=== PATIENT | female | born 1960 | race Caucasian/White ===

== ENCOUNTER → 2018-05-22 07:54 | Outpatient (CLI) | payer OTHER, SELFPAY ==
[2018-05-22 09:41] LABS: Cholesterol 231 mg/dL (200); High Density Lipoprotein 85 mg/dL; Triglycerides 73 mg/dL; Very Low Density Lipoprotein 15 mg/dL (5-40)
== END ==
PROVIDERS: Family Provider Nurse Practitioner; PCP Nurse Practitioner; Referring Provider Nurse Practitioner; Visit Provider Nurse Practitioner
DX: E78.00 Pure hypercholesterolemia, unspecified (principal)
CPT/HCPCS: 36415; 80061

== ENCOUNTER → 2018-09-06 07:35 | Outpatient (CLI) | payer OTHER, SELFPAY ==
[2018-09-06 08:43] LABS: Cholesterol 217 mg/dL (200); High Density Lipoprotein 94 mg/dL; Triglycerides 61 mg/dL; Very Low Density Lipoprotein 12 mg/dL (5-40)
== END ==
PROVIDERS: Family Provider Nurse Practitioner; PCP Nurse Practitioner; Referring Provider Nurse Practitioner; Visit Provider Nurse Practitioner
DX: E78.00 Pure hypercholesterolemia, unspecified (principal)
CPT/HCPCS: 36415; 80061

== ENCOUNTER → 2019-02-05 | Outpatient (CLI) | payer OTHER, SELFPAY ==
--- NOTE | 2019-02-05 15:40 | RAD_ITS ---
STUDY: X-RAY - LUMBAR SPINE REASON FOR EXAM: Female, 58 years old. Back pain TECHNIQUE: 5 view(s) of the lumbar spine were obtained. COMPARISON: None FINDINGS: There is no evidence of fracture or dislocation in the lumbar spine. The vertebral body heights are well-maintained. There are mild degenerative changes in the lower lumbar spine with disc space narrowing. There is grade 1 anterolisthesis of L4 with respect to L5. RAD/L/S Spine Min 4 Views IMPRESSION: No fracture or dislocation in the lumbar spine. Mild degenerative changes in the lower lumbar spine with disc space narrowing. Grade 1 anterolisthesis of L4 with respect to L5. Electronically Signed: Jorden Ashley, at 21:21 EDT Tel , Service support ,
== END | disposition home or self-care (01) ==
LOC: RAD 15:37
PROVIDERS: Family Provider Nurse Practitioner; PCP Nurse Practitioner; Referring Provider Nurse Practitioner; Visit Provider Nurse Practitioner
DX: M54.5 Low back pain (principal)
CPT/HCPCS: 72110

== ENCOUNTER → 2019-03-24 | Outpatient (CLI) | payer OTHER, SELFPAY ==
[2019-03-24 09:19] LABS: ALB/GLOB Ratio 1.2 RATIO (0.9-2.4); AST(SGOT) 20 U/L (15-37); Alanine Aminotransfer ALT/SGPT 25 U/L (13-56); Albumin, Serum 4.3 g/dL (3.2-5.0); Alkaline Phosphatase 60 U/L (45-117); Anion Gap 2 (5-15); BUN 13 mg/dL (7-18); Calcium,Total 10.4 mg/dL (8.5-10.1); Chloride 103 mmol/L (98-107); Cholesterol 225 mg/dL (200); Creatinine, Serum 0.76 mg/dL (0.55-1.02); EST Glomerular Filtration Rate 82 mL/min (>60); Est Glom Filt Rate - Afr Amer 99 mL/min (>60); Globulin 3.7 g/dL (2.2-4.2); Glucose 95 mg/dL (74-106); High Density Lipoprotein 95 mg/dL; Sodium Level 137 mmol/L (136-145); Triglycerides 60 mg/dL; Very Low Density Lipoprotein 12 mg/dL (5-40)
[2019-03-24 09:50] LABS: Vitamin D,25 Hydroxy 77.6 ng/mL (29.95-100.01)
== END | disposition home or self-care (01) ==
LOC: LAB 07:50
PROVIDERS: Family Provider Nurse Practitioner; PCP Nurse Practitioner; Referring Provider Nurse Practitioner; Visit Provider Nurse Practitioner
DX: E83.52 Hypercalcemia (principal); E55.9 Vitamin D deficiency, unspecified; E78.00 Pure hypercholesterolemia, unspecified
CPT/HCPCS: 36415; 80053; 80061; 82306

== ENCOUNTER → 2019-05-26 08:22 | Outpatient (CLI) | payer OTHER, SELFPAY ==
[2019-05-26 10:30] LABS: ALB/GLOB Ratio 1.1 RATIO (0.9-2.4); AST(SGOT) 17 U/L (15-37); Alanine Aminotransfer ALT/SGPT 20 U/L (13-56); Albumin, Serum 3.9 g/dL (3.2-5.0); Alkaline Phosphatase 61 U/L (45-117); Anion Gap 6 (5-15); BUN 18 mg/dL (7-18); BUN/Creat Ratio 25.6 RATIO (10-20); Calcium,Total 9.3 mg/dL (8.5-10.1); Chloride 106 mmol/L (98-107); EST Glomerular Filtration Rate 90 mL/min (>60); Est Glom Filt Rate - Afr Amer 109 mL/min (>60); Globulin 3.5 g/dL (2.2-4.2); Glucose 102 mg/dL (74-106); Potassium 4.1 mmol/L (3.5-5.1); Protein, Total 7.4 g/dL (6.4-8.2); Sodium Level 139 mmol/L (136-145)
== END ==
PROVIDERS: Family Provider Nurse Practitioner; PCP Nurse Practitioner; Referring Provider Nurse Practitioner; Visit Provider Nurse Practitioner
DX: E83.52 Hypercalcemia (principal)
CPT/HCPCS: 36415; 80053

== ENCOUNTER → 2019-07-22 11:44 | Outpatient (CLI) | payer OTHER, SELFPAY ==
[2019-06-12 15:59] VITALS: BMI 20.5
--- NOTE | 2019-07-22 11:48 | MRI_ITS ---
STUDY: BILATERAL BREAST MR WITHOUT AND WITH CONTRAST REASON FOR EXAM: Female, 59 years old. Verification of no breast cancer preoperatively for revision of reconstruction from 29 years ago. Bilateral saline implants, right greater than left. History of bilateral breast pain from contractures. TECHNIQUE: Multi-sequence multi-echo imaging of both breasts was performed with a dedicated breast coil. T1-weighted and T2-weighted images were performed before the administration of contrast. T1-weighted images were also performed after the administration of Dotarem 10cc iv without complications. COMPARISON: No comparison studies. FINDINGS: Bilateral mastectomy with saline implant placements bilaterally. Prominent follicles in both implants. No evidence of intracapsular or extracapsular rupture. No enhancing lesions present. There are no enlarged or abnormal lymph nodes. There is no abnormality in the visualized regions of the chest or liver. MRI/Breast Bilateral W/O and W IMPRESSION: Bilateral mastectomy with saline implant placement without other abnormality. CATEGORY: BIRADS Category 2: Benign. A letter regarding these results will be sent to the patient by the facility within 30 days. Electronically Signed: Payam Lowry MD at 16:57 EST , Service support ,
[2019-07-22 13:26] LABS: ALB/GLOB Ratio 1.2 RATIO (0.9-2.4); AST(SGOT) 16 U/L (15-37); Alanine Aminotransfer ALT/SGPT 19 U/L (13-56); Alkaline Phosphatase 58 U/L (45-117); Anion Gap 2 (5-15); BUN 12 mg/dL (7-18); BUN/Creat Ratio 15.8 RATIO (10-20); Calcium,Total 9.2 mg/dL (8.5-10.1); Chloride 105 mmol/L (98-107); Cholesterol 197 mg/dL (200); Creatinine, Serum 0.76 mg/dL (0.55-1.02); EST Glomerular Filtration Rate 83 mL/min (>60); Est Glom Filt Rate - Afr Amer 100 mL/min (>60); Globulin 3.4 g/dL (2.2-4.2); Glucose 89 mg/dL (74-106); High Density Lipoprotein 69 mg/dL; Potassium 4.1 mmol/L (3.5-5.1); Protein, Total 7.4 g/dL (6.4-8.2); Sodium Level 138 mmol/L (136-145); Triglycerides 83 mg/dL; Very Low Density Lipoprotein 17 mg/dL (5-40)
[2019-07-22 13:36] LABS: Vitamin D,25 Hydroxy 52.1 ng/mL (29.95-100.01)
== END ==
PROVIDERS: Family Provider Nurse Practitioner; PCP Nurse Practitioner; Referring Provider Surgery; Visit Provider Surgery
DX: E83.52 Hypercalcemia (principal); E55.9 Vitamin D deficiency, unspecified; E78.00 Pure hypercholesterolemia, unspecified; C50.911 Malignant neoplasm of unspecified site of right female breast; N65.0 Deformity of reconstructed breast; T85.44XA Capsular contracture of breast implant, initial encounter; T85.848A Pain due to other internal prosthetic devices, implants and grafts, initial encounter; Z80.3 Family history of malignant neoplasm of breast; Z90.12 Acquired absence of left breast and nipple; Z98.82 Breast implant status
CPT/HCPCS: 36415; 77049; 80053; 80061; 82306; A9575; A4216; C8908

== ENCOUNTER 2019-08-11 13:36 | Observation (INO) | payer OTHER, SELFPAY ==
[2019-06-12 15:59] VITALS: BMI 20.5
--- NOTE | 2019-08-10 22:47 | PCM.HP.BLA ---
History and Physical Date of Admission: 08/11/19 HISTORY OF PRESENT ILLNESS 59 year old woman presents with bilateral breast pain, worse on the left. On the left breast, the pain is superior and medial with firmness. On the right breast, the pain is not as severe as it is mostly superior and lateral. She also has noted the right breast is a little smaller than on the left. She denies trauma to her breasts. She denies nipple drainage on the left. The right nipple is reconstructed. She developed right breast cancer in 1989 that resulted in a mastectomy. She also underwent a prophylactic mastectomy on the left. She states no chemotherapy was needed and no radiation therapy was needed. She had breast reconstruction with the placement of saline implants which were textured. The implant was placed under the muscle on the right as she has noticed intermittent pectoralis muscle animation deformity with associated pain. For the left breast, the implant was placed on top of the muscle. She presents at this time for surgical options for treatment regarding revising her breast reconstruction secondary to her painful symptomatology. She had an MRI don on 07/22/19. It showed bilateral mastectomy with saline implant placements bilaterally. Prominent follicles in both implants. No evidence of intracapsular or extracapsular rupture. No enhancing lesions present. There are no enlarged or abnormal lymph nodes. There is no abnormality in the visualized regions of the chest or liver. PAST MEDICAL HISTORY Anemia Breast cancer in female Hearing problem High calcium levels High cholesterol Osteopenia High blood pressure PAST SURGICAL HISTORY breast reconstruction with saline implants mastectomy ALLERGIES ibuprofen MEDICATIONS Metoprolol Tartrate [Lopressor (Beta Alex)] cholecalciferol (vitamin D3) multivitamin with iron tablet omega 5-vbg-pjn-fish oil FAMILY HISTORY Aunt - Breast cancer, Depression with anxiety Father - Cancer, Hypertension, High blood cholesterol Mother - Heart disease SOCIAL HISTORY Smoking Status: Never smoker alcohol intake: current substance use type: does not use REVIEW OF SYSTEMS General - Denies fever, fatigue, and weight loss. Eyes - Denies cataracts and glaucoma. ENT - Denies nasal congestion and sore throat. Endocrine - Denies excessive thirst and urination. Had right breast cancer with bilateral mastectomy and reconstruction with saline implants. Skin - Denies suspicious lesions and skin cancer. Musculoskeletal - Denies joint pain, joint stiffness, weakness of muscles and joints, and arthritis. Has back pain. Neuro - Denies headaches. Cardiovascular - Denies chest pain, fatigue, and shortness of breath with exertion. Psych - Denies anxiety and depression. Respiratory - Denies chronic cough and shortness of breath. Gastrointestinal - Denies nausea, vomiting, diarrhea, and constipation. Hematologic - Denies abnormal bruising and bleeding. Genitourinary - Denies hematuria and urinary frequency. PHYSICAL EXAMINATION General - Alert and Oriented. HEENT - PERRL. EOMI. Throat is clear. Neck - Supple and nontender. No cervical adenopathy. Breast - No palpable masses. The right breast is slightly smaller than the left breast. The nipple is located at the inframammary fold. There is firmness and tenderness bilaterally on the superior aspect of the breasts worse on the left. There is firmness and tenderness on the medial aspect of the left breast with some lateral migration. On the right breast, there is some mild firmness and tenderness on the lateral aspect of the right breast. No axillary adenopathy. When the patient raises her right arm, there is some dimpling of the skin secondary to the muscle animation deformity. Lungs - Clear to auscultation. Heart - Regular rate and rhythm. Abdomen - Soft and nondistended. Mild redundant skin and subcutaneous tissue between the umbilicus and the pubic area. No abdominal wall scars noted. Extremities - FROM. No axillary adenopathy. Radial pulses are palpable. Neuro - CN II-XII grossly intact. Psych - Normal mood and affect. ASSESSMENT 1. Right breast cancer. 2. History of prophylactic subcutaneous mastectomy left breast. 3. Acquired absence bilateral breasts. 4. History of bilateral saline breast implants. 5. Painful capsular contracture bilateral breasts, worse on the left. 6. Disproportion reconstructed breasts with asymmetry with the right breast reconstruction a little smaller. 7. Deformity reconstructed breasts. 8. Pectoralis muscle animation deformity right breast reconstruction. 9. Family history of breast cancer. PLAN Discussed various breast reconstruction options for the patient. The patient has had her saline breast implants for 28 years. Over the years, she has developed bilateral capsular contracture worse on the left. The right breast has become a little smaller over the years. The records from [facility] were obtained. The saline implants were textured. On the right it was placed in the submuscular position. On the left it was placed in the prepectoral position. She is not interested in autogenous reconstruction at this time. The saline breast implants can be removed with associated capsulectomy. After the capsulectomy, would enlarge the pocket medially to help define the cleavage better. She had some concerns that the breasts were too far apart. Would replace the saline implants with cohesive gel implants. Also would place acellular dermal matrix graft to help act as a sling inferiorly for shaping of the breast. One option would be to use the same submuscular pocket and place the acellular dermal matrix graft inferiorly for coverage of the implant. Since the left breast implant is above the muscle, then can create a submuscular pocket for the replacement cohesive gel implant along with acellular dermal matrix graft inferiorly. However, with the pectoralis muscle animation deformity on the right, it was discussed with the patient that the cohesive gel implants can be placed on top of the muscle in a prepectoral position. This would help to minimize the pectoralis muscle animation deformity. Any tissue that is removed will be sent to Pathology for analysis to rule out carcinoma. Any abnormal fluid that is seen will be cultured. A positive culture will necessitate antibiotic therapy. Preoperatively an MRI was done on 07/22/19. It showed bilateral mastectomy with saline implant placements bilaterally. Prominent follicles in both implants. No evidence of intracapsular or extracapsular rupture. No enhancing lesions present. There are no enlarged or abnormal lymph nodes. There is no abnormality in the visualized regions of the chest or liver. 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 The treatment for this is generally removal of the textured implant with capsulectomy. After placement of the cohesive gel implants, if there is some loose skin and tissue inferiorly, will proceed with a mastopexy to help with symmetry and to help complete the breast reconstruction. Patient was informed of the risks and complications of the procedure including alternatives to surgery. These were discussed with the patient personally. Patient voices understanding and wishes to proceed. Some of the risks and complications were included in a form from the [place] [employer]. Surgery will be done under general anesthesia with a surgical observation overnight stay in the hospital. She will have drains in for several days (10-14) and be maintained on antibiotics until the drains are removed.
[2019-08-11] VITALS (13 sets, daily range): BP systolic 84–125; BP diastolic 47–76; PULSE 54–76; RESP 15–18; TEMP 36.5–37.7; O2SAT 94–100; BMI 21.6
[2019-08-11 06:15] LABS: Bedside Glucose 99 mg/dL (70-110)
[2019-08-11 06:19] LABS: Hematocrit 37.8 % (37-47); Hemoglobin 12.5 g/dL (12.0-15.0); Mean Corp Hgb Conc 33.1 g/dL (32-36); Mean Corpuscular Volume 93.8 fL (81-99); Mean Platelet Vol. 10.8 fl (6.2-12.0); Platelet Count 171 K/mm3 (150-450); RBC Distribution Width CV 11.3 % (11.6-14.6); RBC Distribution Width SD 38.6 fl (35.1-43.9); Red Blood Count 4.03 M/mm3 (4.2-5.4); White Blood Count 4.9 K/mm3 (4.4-11.0)
[2019-08-11 06:26] LABS: Partial Thromboplast Time 28.1 Seconds (24.1-36.2); Prothrombin Time (Protime)PT. 12.6 SECONDS (11.7-14.9)
[2019-08-11] MEDS: Magnesium Sulfate 4gm/100mL 4 GM/100 ML IV.SOLN. IV (06:33)
[2019-08-11] MEDS: Lactated Ringers 1,000 ML 40 ML IV (06:34)
[2019-08-11] MEDS: Gabapentin 600 MG Tablet PO (06:35)
[2019-08-11] MEDS: Acetaminophen 500 MG Tablet 1000 MG PO ×3 (06:35→22:56)
[2019-08-11] MEDS: Scopolamine 1mg/72hr Patch 1 PATCH TRANSDERM. (06:35)
[2019-08-11] MEDS: Cefazolin 2 GM in 0.9% Normal Saline 100 ML IV (07:30)
--- NOTE | 2019-08-11 07:30 | BRBX_PTH ---
PATIENT: BOLIVAR VILLAVICENCIO LOC: MS3 U#:[id number] AGE/SX: 59/F ROOM: CO324 RE08/11/[address]: Dr. Brodie Huitron MD : 1960 BED: 1 DIS: 08/13/2019 SPEC #: [id number] RECD: 08/11/19 13:53 STATUS: CALLIE REJaneth #: [id number] NIK: 08/11/19 07:[address]: Brodie Huitron DEPT: SURGICAL PATHOLOGY RECD BY: Ho Melgar ENTERED: 08/11/19 14:27 SP TYPE: BREAST BX OT DR: Bolivar Sutherland CUT OFF SAW TENDER METAL-Aminah Tissues: A - Right breast, NOS B - Left breast, NOS Procedures: Surgery Specimen Level II Surgery Specimen Level IV HEADER OPERATION: Reconstruction with removal of sudha implants PRE-OP DIAGNOSIS: Right breast cancer, history of prophylactic subcutaneous mastectomy left breast, history of bilateral saline breast implants TISSUE SUBMITTED: A. Right breast implant, tissue and capsule, B. Left breast implant, tissue and capsule MICROSCOPIC DIAGNOSIS A. Right breast implant, removal: Unremarkable implant (gross diagnosis only). Right breast implant capsule, excision: Collagenized capsular tissue with mild reactive change and focal microcalcifications. No evidence of inflammation. B. Left breast implant, removal: Unremarkable implant (gross diagnosis only). Left breast implant capsule, excision: Collagenized capsular tissue with mild reactive change and focal microcalcifications. No evidence of inflammation. AM:hector 08/12/19 MICROSCOPIC DESCRIPTION Slides are reviewed. GROSS DESCRIPTION A - Received in fixative is one container labeled with the patient's name and designated right breast implant and tissue capsule. The specimen consists of an explanted breast prosthesis measuring 2.5 cm in diameter and approximately 4 cm in thickness. The implant bears the following inscription BENI. No breaks or tears are identified. Present free in the container are also multiple irregular fragments of pink-garcía soft tissue measuring in aggregate 9 x 9 x 2 cm. Also present in the specimen container is an ellipse of light garcía skin measuring 7 x 0.5 x 0.5 cm. No mass lesions are identified. Oil Developer sections are submitted in three cassettes as follows: 1 - skin, 2 & 3 - signs and displays sales representative sections of breast capsule. B - Received in fixative is one container labeled with the patient's name and designated left breast implant and tissue capsule. The specimen consists of an explanted breast prosthesis measuring 2.5 cm in diameter and approximately 4 cm in thickness. The implant bears the following inscription MCGSCOTT. No breaks or tears are identified. Present free in the container are also multiple irregular fragments of pink-garcía soft tissue measuring in aggregate 14 x 10 x 4 cm. Also present in the specimen container is an ellipse of light garcía skin measuring 5.5 x 1.5 x 0.5 cm. No mass lesions are identified. Oil Developer sections are submitted in three cassettes as follows: 1 - skin, 2 & 3 - signs and displays sales representative sections of breast capsule. / AM:hector 08/11/19 TC:5 CPT: 83912 x2, 14800 x2
[2019-08-11] MEDS: Lactated Ringers 1,000 ML 60 ML IV ×3 (08:31→16:02)
--- NOTE | 2019-08-11 13:15 | PCM.OPRPT ---
Report of Operation Date of Procedure: 08/11/19 Pre-Operative Diagnosis: 1. Right breast cancer. 2. History of prophylactic subcutaneous mastectomy left breast. 3. Acquired absence bilateral breasts. 4. History of bilateral saline breast implants. 5. Painful capsular contracture bilateral breasts, worse on the left. 6. Disproportion reconstructed breasts with asymmetry with the right breast reconstruction a little smaller. 7. Deformity reconstructed breasts. 8. Pectoralis muscle animation deformity right breast reconstruction. 9. Family history of breast cancer. Post-Operative Diagnosis: Same. Surgery/Procedure Performed:: 1. Revision right breast reconstruction with removal of textured saline implant and capsulectomy. 2. Delayed right breast reconstruction with placement of prepectoral cohesive gel implant (480 ml) and placement of Alloderm Select Restore acellular dermal matrix graft (327 cm2). 3. Revision left breast reconstruction with removal of textured saline implant and capsulectomy. 4. Delayed left breast reconstruction with placement of prepectoral cohesive gel implant (480 ml) and placement of Alloderm Select Restore acellular dermal matrix graft (327 cm2). Description of Surgical Findings:: 59 year old woman presents with bilateral breast pain, worse on the left. On the left breast, the pain is superior and medial with firmness. On the right breast, the pain is not as severe as it is mostly superior and lateral. She also has noted the right breast is a little smaller than on the left. She denies trauma to her breasts. She denies nipple drainage on the left. The right nipple is reconstructed. She developed right breast cancer in 1989 that resulted in a mastectomy. She also underwent a prophylactic mastectomy on the left. She states no chemotherapy was needed and no radiation therapy was needed. She had breast reconstruction with the placement of saline implants which were textured. The implant was placed under the muscle on the right as she has noticed intermittent pectoralis muscle animation deformity with associated pain. For the left breast, the implant was placed on top of the muscle. She presents at this time for surgical options for treatment regarding revising her breast reconstruction secondary to her painful symptomatology. She had an MRI don on 07/22/19. It showed bilateral mastectomy with saline implant placements bilaterally. Prominent follicles in both implants. No evidence of intracapsular or extracapsular rupture. No enhancing lesions present. There are no enlarged or abnormal lymph nodes. There is no abnormality in the visualized regions of the chest or liver. Patient was informed of the risks and complications of the procedure including alternatives to surgery. These were discussed with the patient personally. Patient voices understanding and wishes to proceed. Some of the risks and complications were included in a form from the [employer] [place] [employer]. IV Fluids - 2300 ml. Urine Output - 1475 ml. I used Homeland MemoryGel Smooth Round Ultra High Profile Breast Implant, (480 ml on the right). Reference Number - [id number]. Lot Number - [id number]. Serial Number - [id number]. Expiration - April 19, 2024. I used Alloderm Select Restore Regenerative Tissue Matrix Graft, Contour Large Perforated X-Thick, (327 cm2 on the right). Reference Number - [id number]. Lot Number - [id number]. Expiration - March,. I used Homeland MemoryGel Smooth Round Ultra High Profile Breast Implant, (480 ml on the left). Reference Number - [id number]. Lot Number - [id number]. Serial Number - [id number]. Expiration - Jan 01 2024. I used Alloderm Select Restore Regenerative Tissue Matrix Graft, Contour Large Perforated X-Thick, (327 cm2 on the left). Reference Number - [id number]. Lot Number - [id number]. Expiration - August,. I used Chalino absorbable hemostat, (I used 4 vials, 2 in the right breast and 2 in the left breast). Reference Number - [id number]. Lot Number - [id number]. Expiration - April 09, 2024, (right breast). Reference Number - [id number]. Lot Number - [id number]. Expiration - June 09, 2023, (3 vials, one in the right breast and 2 in the left breast). replenishment specialist: Brando Acosta. Type of Anesthesia:: General Specimen's removed: 1. Left breast tissue and capsule and saline textured implant to Pathology. 2. Left breast tissue and capsule to Nicrobiology. 3. Right breast tissue and capsule and saline textured implant to Pathology. 4. Right breast tissue and capsule to Microbiology. Drains: Gaob x4 (2 in each breast). Estimated Blood Loss (mL): 150 ml. Fluids Replaced: 3775 ml (IV Fluids 2300 ml, Urine Output 1475 ml). Description of Procedure: While the patient was in the preop area, markings were made from the sternal midline to the umbilicus. The inframammary folds were marked bilaterally. She was then taken to the OR in supine position and placed under general anethesia. SCD's were placed for DVT prophylaxis. Perioperative antibiotics were given intravenously. Her breasts were prepped and draped in the usual fashion. Ioban draping was also used. A sims catheter was placed. Using xylocaine with epinephrine, the mastectomy scar on the right breast and the mastectomy scar on the left breast in the inframammary fold were infiltrated. After waiting 5 minutes for the anesthetic to take effect, I first worked on the right breast and then the left breast. A horizontal incision was made through the previous right mastectomy scar down through the subcutaneous tissue until the capsule was seen. A capsulotomy was performed and the textured saline implant was removed. No abnormal fluid collection was seen in the breast pocket. However the saline implant was textured and had calcifications around the implant. The capsule was thickened with scattered calcifications around the capsular tissue. I then proceeded with capsulectomy. I then freed up the pectoralis muscle off the breast skin flap and placed the muscle on the chest wall. The plan is to place the cohesive gel implants in a prepectoral position because of her history of pectoralis muscle animation deformity. I then placed a 400 ml ultra high profile sizer into the breast pocket and closed the wound temporarily with 3-0 Vicryl suture. A horizontal incision was then made through the previous left mastectomy scar in the inframammary crease down through the subcutaneous tissue until the capsule was seen. A capsulotomy was performed and the textured saline implant was removed. No abnormal fluid collection was seen in the breast pocket. However the saline implant was textured and had calcifications around the implant. The capsule was thickened with scattered calcifications around the capsular tissue. The capsule was much thicker on the left breast as compared to the right breast. I then proceeded with capsulectomy. The implant had been placed on top of the muscle so no muscle dissection as the implants will be placed in a prepectoral position. I then placed a 400 ml ultra high profile sizer into the breast pocket and closed the wound temporarily with 3-0 Vicryl suture. The patient was placed in the sitting position. Good shape and contour was noted in the breasts, but the sizers did not fill out the breast pocket. I then repeated the process with a 430 ml sizer and a 455 ml sizer and finally settled on a 480 ml ultra high profile sizer. Patient was then placed back in the supine position and sizers were removed. I placed two size 15 Gabo drains through separate stab incisions inferiorly and laterally and secured to the skin with 3-0 Nylon suture. I irrigated both breast wounds with Irrisept 0.05% Chlorhexidine solution followed by saline irrigation. I sprayed Chalino absorbable hemostat into both breast pockets to minimize seroma formation. I used two vials in each breast. Prior to handling the cohesive gel implants, our gloves were changed. I then took both cohesive gel implants (Homeland ultra high profile, 480 ml) and placed them in sterile Betadine on the back table and wrapped the Alloderm Select Restore acellular dermal matrix graft, contour large perforated, X-thick, with 3-0 Vicryl suture. Care was taken to place a malleable over the implant during the suturing of the graft to protect the implant from injury. Prior to placement of the implants into the breast pockets, the wounds were irrigated with saline and hemostasis was obtained with electrocautery. I then placed the cohesive gel implants wrapped in the acellular dermal matrix graft into the breast pockets in a prepectoral position. I secured the lateral edge and inferior edge of the graft to the chest wall with 3-0 Vicryl suture. Because there was some redundancy of the graft in this area, it was easy to protect the implant away from the placement of these sutures. The breast tissue and capsule of both breasts were sent to Pathology for analysis to rule out carcinoma and to Microbiology for culture. Both textured saline implants were also sent to Pathology as well. The breast wounds were then closed with 3-0 Vicryl figure of eight interrupted sutures for the deeper subcutaneous tissue. A malleable was used to protect the implant during this portion of the wound closure The deep dermis and subcutaneous tissue were approximated with 3-0 Monocryl interrupted sutures. The skin was approximated with 3-0 V lock unidirectional barbed running subcuticular sutures. This was followed by Histoacryl skin tissue adhesive. A Kerlix gauze dressing was applied followed by an ABD pad and a surgical bra. Patient tolerated the procedure well and was sent to PACU in satisfactory condition. She will be sent upstairs for postop care. The drains will be removed in 10-14 days. She will be discharged on antibiotics and pain medication and Valium for spasm. Grafts/Implants Used: Homeland MemoryGel Implants x2, Alloderm Select acellular graft x2. - Complications None. - Admit VTE Documentation VTE Present on Admission: No VTE Mechan Device Prophylaxis: SCD's VTE Pharm Prophylaxis ordered?: Yes Code Visit Surgery Charges CPT - 11528 ICD-10 - C50.911, T85.44xA, T85.848A, Z90.13, Z98.82, N65.1, N65.0, Z80.3 38435-49 C50.911, T85.44xA, T85.848A, Z90.13, Z98.82, N65.1, N65.0, Z80.3 73054 C50.911, Z90.13, Z98.82, N65.1, T85.44xA, T85.848A, N65.0, Z80.3 38229-26 C50.911, Z90.13, Z98.82, N65.1, T85.44xA, T85.848A, N65.0, Z80.3 93946 C50.911, Z90.13, Z98.82, N65.1, N65.0, T85.44xA, T85.848A, Z80.3 44797-05 C50.911, Z90.13, Z98.82, N65.1, N65.0, T85.44xA, T85.848A, Z80.3 76264-50 C50.911, Z90.13, Z98.82, N65.1, N65.0, T85.44xA, T85.848A, Z80.3
[2019-08-11] MEDS: Scopolamine 1mg/72hr Patch 1 PATCH TD (13:54)
[2019-08-11] MEDS: Cefazolin 1 GM/50 ML BAG IV ×2 (17:18→22:33)
[2019-08-11] MEDS: oxyCODONE 5 MG Tablet PO ×2 (18:51→22:53)
[2019-08-11] MEDS: Gabapentin 100 MG Capsule 200 MG PO (18:51)
[2019-08-11] MEDS: Docusate Sodium 100 MG Capsule PO (22:32)
[2019-08-12 03:04] VITALS: BP 92/53; PULSE 57; RESP 16; TEMP 36.6; O2SAT 99
--- NOTE | 2019-08-12 05:30 | NURSING ---
Cruz d/c per nurse driven protocol
[2019-08-12 05:32] LABS: Hematocrit 33.2 % (37-47); Hemoglobin 10.7 g/dL (12.0-15.0); Mean Corp Hgb Conc 32.2 g/dL (32-36); Mean Corpuscular Volume 96.2 fL (81-99); Mean Platelet Vol. 11.1 fl (6.2-12.0); Platelet Count 125 K/mm3 (150-450); RBC Distribution Width CV 11.6 % (11.6-14.6); RBC Distribution Width SD 40.7 fl (35.1-43.9); Red Blood Count 3.45 M/mm3 (4.2-5.4)
[2019-08-12] MEDS: Acetaminophen 500 MG Tablet 1000 MG PO ×3 (05:34→23:33)
[2019-08-12] MEDS: oxyCODONE 5 MG Tablet PO ×4 (05:34→22:05)
[2019-08-12 06:01] LABS: Anion Gap 3 (5-15); BUN 11 mg/dL (7-18); BUN/Creat Ratio 16.4 RATIO (10-20); Calcium,Total 8.6 mg/dL (8.5-10.1); Chloride 108 mmol/L (98-107); Creatinine, Serum 0.67 mg/dL (0.55-1.02); EST Glomerular Filtration Rate 96 mL/min (>60); Est Glom Filt Rate - Afr Amer 116 mL/min (>60); Estimated Creatinine Clearance 78.07 ml/min; Glucose 102 mg/dL (74-106); Potassium 5.3 mmol/L (3.5-5.1); Prealbumin 24.9 mg/dL (20.0-40.0); Sodium Level 141 mmol/L (136-145)
[2019-08-12] MEDS: Cefazolin 1 GM/50 ML BAG IV ×3 (06:31→23:34)
[2019-08-12 07:54] VITALS: O2SAT 98
[2019-08-12] MEDS: Ensure Surgery 237 ML LIQUID PO ×3 (08:23→17:55)
[2019-08-12] MEDS: Docusate Sodium 100 MG Capsule PO ×2 (08:23→22:05)
[2019-08-12] MEDS: Gabapentin 100 MG Capsule 200 MG PO ×3 (08:23→17:55)
[2019-08-12] MEDS: Ferrous Sulfate 325 MG Tablet PO (08:24)
[2019-08-12] MEDS: Enoxaparin 40 MG/0.4 ML Syringe SC (08:25)
[2019-08-12 08:27] VITALS: PULSE 61
[2019-08-12] MEDS: Metoprolol Tartrate 50 MG Tablet PO (08:27)
[2019-08-12 09:16] VITALS: BP 99/62; PULSE 70; RESP 18; TEMP 36.6; O2SAT 93
--- NOTE | 2019-08-12 11:38 | PN.SURG_ITS ---
Subjective: Postop #1 Patient has some incisional pain. Is a little unsteady on her feet with ambulation. - Physical Exam Vitals/I&O's: Vital Signs Temp Pulse Resp BP Pulse Ox 97.9 F 70 18 99/62 93 08/12/19 09:16 08/12/19 09:16 08/12/19 09:16 08/12/19 09:16 08/12/19 09:16 Oxygen Flow Rate (L/min) 6 Oxygen Delivery Method Room Air Weight: 125 lb 14.143 oz Body Mass Index (BMI) 21.6 Intake and Output for Last 24 Hours 08/10/19 08/11/19 08/12/19 23:59 23:59 23:59 Intake Total 3310 / 4310 2455 / 2455 Output Total 1761 / 2611 2265 / 2265 Balance 1549 / 1699 190 / 190 Drainage 146 ml yesterday, 215 ml today General: Alert, Oriented x3 HEENT: PERRLA, EOMI Oral: Moist Mucosa Neck: Supple Abdomen: Soft, Non-Distended Skin: Incision - breast incisions are dry and intact. Breasts are soft and symmetrical. No clinical evidence of hematoma. Mild bruising on right lateral breast where the muscle was dissected off the breast skin flap. Will observe. Neurological: Cranial nerves II-XII grossly intact Psych/Mental Status: Normal Affect, Appropriate Microbiology Past 72 Hours 08/11/19 09:30 Tissue - Breast Gram Stain - Final 08/11/19 09:30 Tissue - Breast Wound Culture - Preliminary No growth-Final to follow 08/11/19 09:30 Tissue - Breast Gram Stain - Final 08/11/19 09:30 Tissue - Breast Wound Culture - Preliminary No growth-Final to follow Laboratory Results 08/12/19 05:15: Sodium 141, Potassium 5.3 H, Chloride 108 H, Carbon Dioxide 30.0, Anion Gap 3 L, BUN 11, Creatinine 0.67, Estim Creat Clear Calc 78.07, Est GFR (MDRD) Af Amer 116, Est GFR (MDRD) Non-Af 96, BUN/Creatinine Ratio 16.4, Glucose 102, Calcium 8.6, Prealbumin 24.9 08/12/19 05:15: WBC 8.0, RBC 3.45 L, Hgb 10.7 L, Hct 33.2 L, MCV 96.2, MCH 31.0, MCHC 32.2, RDW Std Deviation 40.7, RDW Coeff of Hans 11.6, Plt Count 125 L, MPV 11.1 Current Medications Acetaminophen (Tylenol) 1,000 mg PO Q6 [facility] Last Admin: 08/12/19 11:17 Dose: 1,000 mg Documented by: Diazepam (Valium) 5 mg PO 4X/DAY PRN PRN PRN Reason: SPASMS Docusate Sodium (Colace) 100 mg PO BID [facility] Last Admin: 08/12/19 08:23 Dose: 100 mg Documented by: Enoxaparin Sodium (Lovenox) 40 mg SC DAILY [facility] Last Admin: 08/12/19 08:25 Dose: 40 mg Documented by: Enteral Nutritional Formula (Ensure Surgery) 237 ml PO TIDCM [facility] Last Admin: 08/12/19 11:17 Dose: 237 ml Documented by: [facility] Admin: 08/12/19 08:24 Dose: 325 mg Documented by: Gabapentin (Neurontin) 200 mg PO TIDCM [facility] Last Admin: 08/12/19 11:17 Dose: 200 mg Documented by: Hydromorphone HCl (Dilaudid Inj) 0.5 - 1 mg IV Q3H PRN PRN PRN Reason: Pain Score 6-10/10 Cefazolin Sodium () 1 gm in 50 mls @ 100 mls/hr IV Q8H [facility] Last Infusion: 08/12/19 07:01 Dose: Infused Documented by: Insulin Human Lispro (Humalog Kwikpen (Bkc)) 1 - 6 unit SC Q4H PRN PRN; Protocol PRN Reason: BG>/= 180, SEE PROTOCOL Magnesium Oxide (Mag-Ox 400) 400 mg PO BID PRN PRN PRN Reason: Constipation Metoprolol Tartrate (Lopressor (Beta Alex)) 50 mg PO DAILY [facility] Last Admin: 08/12/19 08:27 Dose: 50 mg Documented by: Ondansetron HCl (Zofran Odt) 4 mg PO Q6H PRN PRN PRN Reason: NAUSEA Oxycodone HCl (Oxyir) 5 - 10 mg PO Q4H PRN PRN PRN Reason: Pain Score 4-10/10 Last Admin: 08/12/19 11:23 Dose: 5 mg Documented by: Scopolamine HBr (Transderm-Scop) 1 patch TD Q3D [facility] Stop: 08/12/19 13:55 Last Admin: 08/11/19 13:54 Dose: 1 patch Documented by: Sodium Chloride () 10 - 40 ml IV UD PRN PRN Reason: SALINE FLUSH Medical Necessity - Tobacco Use Smoking Status: Never smoker Tobacco Use: Non-smoker Assessment/Plan 1. Right breast cancer. 2. History of prophylactic subcutaneous mastectomy left breast. 3. Acquired absence bilateral breasts. 4. History of bilateral saline breast implants. 5. Painful capsular contracture bilateral breasts, worse on the left. 6. Disproportion reconstructed breasts with asymmetry with the right breast reconstruction a little smaller. 7. Deformity reconstructed breasts. 8. Pectoralis muscle animation deformity right breast reconstruction. 9. Family history of breast cancer. 10. s/p revision right breast reconstruction with removal of textured saline implant and capsulectomy and delayed right breast reconstruction with placement of prepectoral cohesive gel implant (480 ml) and placement of Alloderm Select Restore acellular dermal matrix graft (327 cm2) and revision left breast reconstruction with removal of textured saline implant and capsulectomy and delayed left breast reconstruction with placement of prepectoral cohesive gel implant (480 ml) and placement of Alloderm Select Restore acellular dermal matrix graft (327 cm2). Breast incisions are dry and intact. Breasts are soft and symmetrical. No clinical evidence of hematoma. Mild bruising on right lateral breast where the muscle was dissected off the breast skin flap. Will observe. Has incisional pain. Will wean to po analgesia for discharge. Anticipate discharge tomorrow. Is a little unsteady on her feet with ambulation. Encourage ambulation today. Prealbumin was 24.9. Encourage nutritional supplementation with protein to help the healing process. Operative cultures are negative. Continue Ancef while drains are in place. Will discharge on po antibiotics until the drains are removed in the office. Keep head elevated. No heavy lifting. Continue surgical bra.
[2019-08-12 15:13] VITALS: BP 91/52; PULSE 59; RESP 18; TEMP 36.8; O2SAT 97
[2019-08-12] MEDS: diazePAM 5 MG Tablet PO (18:01)
[2019-08-12 23:00] VITALS: BP 94/50; PULSE 54; RESP 16; TEMP 37; O2SAT 96
[2019-08-12] MEDS: 0.9% Saline Lock 10 ML Syringe IV (23:34)
[2019-08-13 05:30] VITALS: BP 105/69; PULSE 54; RESP 16; TEMP 36.6; O2SAT 98
[2019-08-13] MEDS: Acetaminophen 500 MG Tablet 1000 MG PO ×2 (05:36→12:23)
[2019-08-13] MEDS: oxyCODONE 5 MG Tablet PO ×2 (05:51→10:01)
[2019-08-13] MEDS: 0.9% Saline Lock 10 ML Syringe IV (06:55)
[2019-08-13] MEDS: Cefazolin 1 GM/50 ML BAG IV (06:55)
[2019-08-13] MEDS: Ensure Surgery 237 ML LIQUID PO ×2 (10:01→12:25)
[2019-08-13] MEDS: diazePAM 5 MG Tablet PO (10:01)
[2019-08-13] MEDS: Gabapentin 100 MG Capsule 200 MG PO ×2 (10:02→12:23)
[2019-08-13] MEDS: Ferrous Sulfate 325 MG Tablet PO (10:02)
[2019-08-13 10:03] VITALS: PULSE 80
[2019-08-13] MEDS: Metoprolol Tartrate 50 MG Tablet PO (10:03)
[2019-08-13] MEDS: Docusate Sodium 100 MG Capsule PO (10:03)
[2019-08-13] MEDS: Enoxaparin 40 MG/0.4 ML Syringe SC (10:04)
--- NOTE | 2019-08-13 11:10 | PCM.PN.SRG ---
Subjective: Postop #2 Patient is resting comfortably. - Physical Exam Vitals/I&O's: Vital Signs Temp Pulse Resp BP Pulse Ox 97.9 F 80 16 105/69 98 08/13/19 05:30 08/13/19 10:03 08/13/19 05:30 08/13/19 05:30 08/13/19 05:30 Oxygen Flow Rate (L/min) 6 Oxygen Delivery Method Room Air Weight: 125 lb 14.143 oz Body Mass Index (BMI) 21.6 Intake and Output for Last 24 Hours 08/11/19 08/12/19 08/13/19 23:59 23:59 23:59 Intake Total 3310 / 4310 3455 / 4455 1300 / 1300 Output Total 1761 / 2611 2345 / 3100 823 / 823 Balance 1549 / 1699 1110 / 1355 477 / 477 Drainage 295 ml yesterday, 173 ml today. General: Alert, Oriented x3 HEENT: PERRLA, EOMI Oral: Moist Mucosa Neck: Supple Abdomen: Soft, Non-Distended Skin: Incision - breast incisions are dry and intact. Breasts are soft and symmetrical. Minor bruising on the right breast slowly resolving. No clinical evidence of hematoma. Good breast contour noted. Neurological: Cranial nerves II-XII grossly intact Psych/Mental Status: Normal Affect, Appropriate Microbiology Past 72 Hours 08/11/19 09:30 Tissue - Breast Gram Stain - Final 08/11/19 09:30 Tissue - Breast Wound Culture - Preliminary No growth-Final to follow 08/11/19 09:30 Tissue - Breast Gram Stain - Final 08/11/19 09:30 Tissue - Breast Wound Culture - Preliminary No growth-Final to follow Current Medications Acetaminophen (Tylenol) 1,000 mg PO Q6 [facility] Last Admin: 08/13/19 05:36 Dose: 1,000 mg Documented by: Diazepam (Valium) 5 mg PO 4X/DAY PRN PRN PRN Reason: SPASMS Last Admin: 08/13/19 10:01 Dose: 5 mg Documented by: Docusate Sodium (Colace) 100 mg PO BID [facility] Last Admin: 08/13/19 10:03 Dose: 100 mg Documented by: Enoxaparin Sodium (Lovenox) 40 mg SC DAILY [facility] Last Admin: 08/13/19 10:04 Dose: 40 mg Documented by: Enteral Nutritional Formula (Ensure Surgery) 237 ml PO TIDCM [facility] Last Admin: 08/13/19 10:01 Dose: 237 ml Documented by: Ferrous Sulfate (Ferrous Sulfate) 325 mg PO DAILYCM [facility] Last Admin: 08/13/19 10:02 Dose: 325 mg Documented by: Gabapentin (Neurontin) 200 mg PO TIDCM [facility] Last Admin: 08/13/19 10:02 Dose: 200 mg Documented by: Hydromorphone HCl (Dilaudid Inj) 0.5 - 1 mg IV Q3H PRN PRN PRN Reason: Pain Score 6-10/10 Cefazolin Sodium () 1 gm in 50 mls @ 100 mls/hr IV Q8H [facility] Last Infusion: 08/13/19 07:25 Dose: Infused Documented by: Insulin Human Lispro (Humalog Kwikpen (Bkc)) 1 - 6 unit SC Q4H PRN PRN; Protocol PRN Reason: BG>/= 180, SEE PROTOCOL Magnesium Oxide (Mag-Ox 400) 400 mg PO BID PRN PRN PRN Reason: Constipation Metoprolol Tartrate (Lopressor (Beta Alex)) 50 mg PO DAILY [facility] Last Admin: 08/13/19 10:03 Dose: 50 mg Documented by: Ondansetron HCl (Zofran Odt) 4 mg PO Q6H PRN PRN PRN Reason: NAUSEA Oxycodone HCl (Oxyir) 5 - 10 mg PO Q4H PRN PRN PRN Reason: Pain Score 4-10/10 Last Admin: 08/13/19 10:01 Dose: 5 mg Documented by: Sodium Chloride () 10 - 40 ml IV UD PRN PRN Reason: SALINE FLUSH Last Admin: 08/13/19 06:55 Dose: 10 ml Documented by: Medical Necessity - Tobacco Use Smoking Status: Never smoker Tobacco Use: Non-smoker Assessment/Plan 1. Right breast cancer. 2. History of prophylactic subcutaneous mastectomy left breast. 3. Acquired absence bilateral breasts. 4. History of bilateral saline breast implants. 5. Painful capsular contracture bilateral breasts, worse on the left. 6. Disproportion reconstructed breasts with asymmetry with the right breast reconstruction a little smaller. 7. Deformity reconstructed breasts. 8. Pectoralis muscle animation deformity right breast reconstruction. 9. Family history of breast cancer. 10. s/p revision right breast reconstruction with removal of textured saline implant and capsulectomy and delayed right breast reconstruction with placement of prepectoral cohesive gel implant (480 ml) and placement of Alloderm Select Restore acellular dermal matrix graft (327 cm2) and revision left breast reconstruction with removal of textured saline implant and capsulectomy and delayed left breast reconstruction with placement of prepectoral cohesive gel implant (480 ml) and placement of Alloderm Select Restore acellular dermal matrix graft (327 cm2). Breast incisions are dry and intact. Breasts are soft and symmetrical. No clinical evidence of hematoma. Mild bruising on right lateral breast where the muscle was dissected off the breast skin flap is slowly resolving. Good breast contour noted. She is tolerating po analgesia. Is more steady on her feet with ambulation. Prealbumin was 24.9. Encourage nutritional supplementation with protein to help the healing process. Operative cultures are negative thus far. Will discharge on po antibiotics until the drains are removed in the office. Keep head elevated. No heavy lifting. Continue surgical bra. Discharge home today. Wrote script for Cefadroxil until the drains are removed. Wrote scripts for Percocet for pain (40 tabs) and for Valium for spasm (30 tabs). Wrote scripts for Zofran for nausea (30 tabs) and a refill and for Colace for constipation (60 tabs). Followup office one week. Will remove the drains in the office.
--- NOTE | 2019-08-13 11:21 | PCM.DC ---
You will use the following diet at home:: No restrictions, Other - encourage nutritional supplementation with protein to help the healing process. Discharge Activity: May not drive while taking narcotic pain medications., May Not Shower - until the drains are removed., - - keep head elevated. no heavy lifting. May shower in (days): 14 - after the drains are removed. May resume sexual activity in: 10-14 days Weight Bearing Status: Weight bearing as tolerated Lifting Restrictions: 20 lbs. Keep extremity elevated above heart level: - - elevate head. Call your doctor if your incision/area has: Continuous Slow Oozing, Sudden Increased Bleeding, Increased Pain/ Swelling, Increased Redness, Foul Smelling Discharge, Swelling at the incision site Call your doctor if you observe: Fever of 101 or Higher, Coldness, Increased Pain, Shortness of breath, Chest pain, Calf discomfort, Uncontrolled pain Suture Line Care: - - dry dressings daily or every other day Change Dressing in (Days):: 1 - dry dressings daily or every other day. Cleanse incision/area with: - - may get incisions wet in the shower after the drains are removed. Drain: Suction - shelley drain x4 to bulb suction. empty and record output daily. Allergies/Adverse Reactions: Allergies ibuprofen Allergy (Verified 08/11/19 06:15) Unknown Medications to take at Discharge Metoprolol Tartrate [Lopressor (beta cecil)] 50 mg PO DAILY 08/06/15 cholecalciferol (vitamin D3) 1,000 unit capsule 5,000 unit PO MOWEFR 06/12/19 omega 1-uul-[id number]-fish oil 1,000 mg (120 mg-180 mg) capsule 2 cap PO DAILY 06/12/19 Ferrous Sulfate [Iron] 325 mg PO DAILY 07/30/19 Cefadroxil [Duricef] 500 mg PO BID #30 cap 08/13/19 Diazepam [Valium] 5 mg PO 4X/DAY PRN PRN #30 tablet 08/13/19 Docusate Sodium [Colace] 100 mg PO BID #60 cap 08/13/19 Ondansetron [Zofran Odt] 4 mg PO 4X/DAY PRN PRN #30 tab 08/13/19 Oxycodone HCl/Acetaminophen [Percocet 5/325] 1 tab PO Q4H PRN PRN 7 Days #40 tab 08/13/19 The following prescriptions were given: Docusate Sodium [Colace] 100 mg PO BID #60 cap Transmission Status: Pending to [id number] Cefadroxil [Duricef] 500 mg PO BID #30 cap Transmission Status: Pending to [id number] Oxycodone HCl/Acetaminophen [Percocet 5/325] 1 tab PO Q4H PRN PRN 7 Days #40 tab PRN Reason: Pain Score 4-5/10 Transmission Status: Received by [id number] Diazepam [Valium] 5 mg PO 4X/DAY PRN PRN #30 tablet PRN Reason: Spasms Transmission Status: Received by [id number] Ondansetron [Zofran Odt] 4 mg PO 4X/DAY PRN PRN #30 tab PRN Reason: NAUSEA Transmission Status: Pending to [id number] Primary Care Physician: Silvana Sutherland, [employer] [Primary Care Provider] - Test Results: Test results from this visit will be discussed in further detail at your follow-up appointment, if applicable. Please Follow Up With: Brodie Huitron MD When: one week. call [phone] for appt. Proposed Discharge Date: 08/13/19
[2019-08-13 11:30] VITALS: BP 128/65; PULSE 84; RESP 16; TEMP 36.9; O2SAT 99
[2019-08-13 11:31] VITALS: O2SAT 98
== END 2019-08-13 12:37 | disposition home or self-care (01) ==
LOC: SDC 15:01 → MS3 15:01
PROVIDERS: Anesthesiology; Admitting Provider Surgery; Family Provider Nurse Practitioner; PCP Nurse Practitioner; Referring Provider Surgery; Visit Provider Surgery
PROC: (CPT 15777; principal; 2019-08-11 07:10)
DX: N65.0 Deformity of reconstructed breast (principal); N64.4 Mastodynia; C50.911 Malignant neoplasm of unspecified site of right female breast; T85.44XA Capsular contracture of breast implant, initial encounter; Y81.2 Prosthetic and other implants, materials and accessory general- and plastic-surgery devices associated with adverse incidents; N65.1 Disproportion of reconstructed breast; D64.9 Anemia, unspecified; Z79.899 Other long term (current) drug therapy; I10 Essential (primary) hypertension; E78.00 Pure hypercholesterolemia, unspecified; M85.80 Other specified disorders of bone density and structure, unspecified site; Z80.3 Family history of malignant neoplasm of breast
CPT/HCPCS: 00402; 15777; 19340; 19371; 36415; 80048; 82962; 84134; 85027; 85610; 85730; 87070; 87075; 87102; 87176; 87205; 87206; 88302; 88305; 96365; 96366; 96372; 99218; 99251; J7120; A4216; G0378; G0379; G0463; J2405; Q9968

== ENCOUNTER → 2019-11-06 10:56 | Outpatient (CLI) | payer OTHER, SELFPAY ==
[2019-10-23 11:07] VITALS: BMI 21.6
[2019-11-06 11:45] LABS: Microalbumin,Random Urine 7.5 mg/L (NO RANGE EST.)
[2019-11-06 11:54] LABS: Absolute Lymphocyte Count 2.12 X10^3/uL (0.83-4.51); Absolute Neutrophil Count 2.2 X10^3/uL (2.0-7.7); Basophil# 0.04 X10^3/uL; Basophil% 0.8 % (0-1); Eosinophil# 0.21 X10^3/uL; Eosinophils% 4.2 % (0-5); Hematocrit 40.2 % (37-47); Hemoglobin 13.1 g/dL (12.0-15.0); Lymphocyte # 2.12 X10^3/ul (4.0); Lymphocyte % 42.7 % (19-41); Mean Corp Hgb Conc 32.6 g/dL (32-36); Mean Corpuscular Hgb 30.8 pg (27.0-32.0); Mean Corpuscular Volume 94.4 fL (81-99); Mean Platelet Vol. 11.3 fl (6.2-12.0); Monocyte# 0.43 X10^3/uL; Monocyte% 8.7 % (0-10); NRBC Flagged by Analyzer 0 % (0-5); Neutrophil # 2.15 X10^3/uL (2.7-7.7); Neutrophil % 43.4 % (47-70); Platelet Count 177 K/mm3 (150-450); RBC Distribution Width CV 11.8 % (11.6-14.6); RBC Distribution Width SD 40.8 fl (35.1-43.9); Red Blood Count 4.26 M/mm3 (4.2-5.4)
[2019-11-06 12:00] LABS: Vitamin D,25 Hydroxy 62.1 ng/mL
[2019-11-06 12:04] LABS: ALB/GLOB Ratio 1.2 RATIO (0.9-2.4); AST(SGOT) 26 U/L (15-37); Alanine Aminotransfer ALT/SGPT 22 U/L (13-56); Albumin, Serum 4.2 g/dL (3.2-5.0); Alkaline Phosphatase 65 U/L (45-117); Anion Gap 5 (5-15); BUN 10 mg/dL (7-18); BUN/Creat Ratio 13.4 RATIO (10-20); Calcium,Total 9.5 mg/dL (8.5-10.1); Chloride 101 mmol/L (98-107); Cholesterol 222 mg/dL (200); Creatinine, Serum 0.75 mg/dL (0.55-1.02); EST Glomerular Filtration Rate 84 mL/min (>60); Est Glom Filt Rate - Afr Amer 102 mL/min (>60); Globulin 3.5 g/dL (2.2-4.2); Glucose 98 mg/dL (74-106); High Density Lipoprotein 99 mg/dL; Potassium 4.9 mmol/L (3.5-5.1); Protein, Total 7.7 g/dL (6.4-8.2); Sodium Level 136 mmol/L (136-145); Thyroid Stim Hormone (TSH) 1.59 uIU/mL (0.358-3.74); Triglycerides 56 mg/dL; Very Low Density Lipoprotein 11 mg/dL (5-40)
== END ==
PROVIDERS: PCP Nurse Practitioner; Referring Provider Nurse Practitioner; Visit Provider Nurse Practitioner
DX: E78.00 Pure hypercholesterolemia, unspecified (principal); E55.9 Vitamin D deficiency, unspecified; I10 Essential (primary) hypertension
CPT/HCPCS: 36415; 80053; 80061; 82043; 82306; 82570; 84443; 85025

== ENCOUNTER 2022-08-16 13:53 | Outpatient (CLI) | payer BC, SELFPAY ==
[2022-08-16 15:07] LABS: Absolute Lymphocyte Count 1.77 X10^3/uL (0.83-4.51); Absolute Neutrophil Count 4.3 X10^3/uL (2.0-7.7); Basophil# 0.02 X10^3/uL; Basophil% 0.3 % (0-1); Eosinophil# 0.11 X10^3/uL; Eosinophils% 1.6 % (0-5); Hematocrit 36.6 % (37-47); Lymphocyte # 1.77 X10^3/ul (0.83-4.51); Lymphocyte % 26.3 % (19-41); Mean Corp Hgb Conc 32.8 g/dL (32-36); Mean Corpuscular Hgb 31.3 pg (27.0-32.0); Mean Corpuscular Volume 95.6 fL (81-99); Mean Platelet Vol. 11.2 fl (6.2-12.0); Monocyte# 0.53 X10^3/uL; Monocyte% 7.9 % (0-10); NRBC Flagged by Analyzer 0 % (0-5); Neutrophil # 4.26 X10^3/uL (2.7-7.7); Neutrophil % 63.5 % (47-70); Platelet Count 239 K/mm3 (150-450); RBC Distribution Width CV 11.6 % (11.6-14.6); RBC Distribution Width SD 40.9 fl (35.1-43.9); Red Blood Count 3.83 M/mm3 (4.2-5.4); White Blood Count 6.7 K/mm3 (4.4-11.0)
[2022-08-16 15:08] LABS: Color, Urine Yellow (Yellow); Glucose, Dipstick Normal (Normal); Ketone-Dipstick Negative (Negative); Leukocyte Esterase-Dipstick Negative /ul (Negative); Nitrite-Dipstick Negative (Negative); Occult Blood-Urine Negative /ul (Negative); Protein-Dipstick 15 mg/dl (Negative); Specific Gravity, Urine 1.015 (1.002-1.030); Urine Bilirubin Dipstick Negative (Negative); Urine Clarity Clear (Clear); Urine Urobilinogen Normal (Normal)
[2022-08-16 16:00] LABS: ALB/GLOB Ratio 1.1 RATIO (0.9-2.4); AST(SGOT) 18 U/L (15-37); Alanine Aminotransfer ALT/SGPT 21 U/L (13-56); Alkaline Phosphatase 54 U/L (45-117); Anion Gap 7 (5-15); BUN 9 mg/dL (7-18); BUN/Creat Ratio 15.2 RATIO (10-20); Calcium,Total 9.3 mg/dL (8.5-10.1); Chloride 97 mmol/L (98-107); Cholesterol 239 mg/dL (200); Creatinine, Serum 0.59 mg/dL (0.55-1.02); EST Glomerular Filtration Rate 109 mL/min (>60); Est Glom Filt Rate - Afr Amer 132 mL/min (>60); Globulin 3.5 g/dL (2.2-4.2); Glucose 99 mg/dL (74-106); High Density Lipoprotein 99 mg/dL; Potassium 4.1 mmol/L (3.5-5.1); Protein, Total 7.5 g/dL (6.4-8.2); Sodium Level 131 mmol/L (136-145); Triglycerides 64 mg/dL; Very Low Density Lipoprotein 13 mg/dL (5-40)
[2022-08-16 16:05] LABS: Vitamin D,25 Hydroxy 78.1 ng/mL
[2022-08-17 09:43] LABS: Ferritin 172 ng/mL (8-252); Iron 104 ug/dL (50-170); Iron Binding Capacity,Total 335 ug/dL (250-450); Vitamin B12 587 pg/mL (211-911)
[2022-08-17 10:00] LABS: RET-HE 35.6 pg (30-35); Reticulocyte Count 1.24 % (0.5-1.5)
== END 2022-08-16 23:59 | disposition home or self-care (01) ==
LOC: LAB 13:57
PROVIDERS: PCP Nurse Practitioner Family; Referring Provider Nurse Practitioner Family; Visit Provider Nurse Practitioner Family
DX: I10 Essential (primary) hypertension (principal); E78.00 Pure hypercholesterolemia, unspecified; R79.89 Other specified abnormal findings of blood chemistry; E55.9 Vitamin D deficiency, unspecified; D64.9 Anemia, unspecified
CPT/HCPCS: 36415; 80053; 80061; 81002; 82306; 82607; 82728; 83540; 83550; 85025; 85045

== ENCOUNTER → 2023-02-16 | Outpatient (CLI) | payer BC, SELFPAY ==
[2023-02-16 09:15] LABS: Mucous, Urine 0 SEEN /hpf (<or=2+); Red Blood Cells-Urine 0 SEEN /hpf (0-5); Squamous Epithelial Cells - UA 0 SEEN /hpf (5-10)
[2023-02-16 10:07] LABS: Absolute Lymphocyte Count 1.53 X10^3/uL (0.83-4.51); Basophil# 0.03 X10^3/uL; Basophil% 0.7 % (0-1); Hematocrit 36.4 % (37-47); Hemoglobin 11.9 g/dL (12.0-15.0); Lymphocyte # 1.53 X10^3/ul (0.83-4.51); Mean Corp Hgb Conc 32.7 g/dL (32-36); Mean Corpuscular Hgb 31.9 pg (27.0-32.0); Mean Corpuscular Volume 97.6 fL (81-99); Monocyte# 0.31 X10^3/uL; Monocyte% 7.7 % (0-10); NRBC Flagged by Analyzer 0 % (0-5); Neutrophil # 1.95 X10^3/uL (2.7-7.7); Neutrophil % 48.4 % (47-70); Platelet Count 180 K/mm3 (150-450); RBC Distribution Width CV 11.7 % (11.6-14.6); RBC Distribution Width SD 41.9 fl (35.1-43.9); Red Blood Count 3.73 M/mm3 (4.2-5.4)
[2023-02-16 10:26] LABS: Color, Urine Yellow (Yellow); Glucose, Dipstick Normal (Normal); Ketone-Dipstick Negative (Negative); Leukocyte Esterase-Dipstick 25 /ul (Negative); Nitrite-Dipstick Negative (Negative); Occult Blood-Urine Negative /ul (Negative); Protein-Dipstick Negative (Negative); Specific Gravity, Urine 1.005 (1.002-1.030); Urine Bilirubin Dipstick Negative (Negative); Urine Clarity Sl. Cloudy (Clear); Urine Urobilinogen Normal (Normal)
[2023-02-16 10:35] LABS: Bacteria 1+ /hpf (None Seen); White Blood Cells 0-5 SEEN /hpf (0-5)
[2023-02-16 10:36] LABS: Vitamin D,25 Hydroxy 74.5 ng/mL
[2023-02-16 10:54] LABS: AST(SGOT) 18 U/L (15-37); Alanine Aminotransfer ALT/SGPT 20 U/L (13-56); Albumin, Serum 3.6 g/dL (3.2-5.0); Alkaline Phosphatase 57 U/L (45-117); Anion Gap 5 (5-15); BUN 11 mg/dL (7-18); Calcium,Total 9.4 mg/dL (8.5-10.1); Chloride 103 mmol/L (98-107); Cholesterol 215 mg/dL (200); Creatinine, Serum 0.69 mg/dL (0.55-1.02); EST Glomerular Filtration Rate 92 mL/min (>60); Est Glom Filt Rate - Afr Amer 111 mL/min (>60); Globulin 3.5 g/dL (2.2-4.2); Glucose 97 mg/dL (74-106); High Density Lipoprotein 86 mg/dL; Potassium 4.1 mmol/L (3.5-5.1); Protein, Total 7.1 g/dL (6.4-8.2); Sodium Level 136 mmol/L (136-145); Triglycerides 81 mg/dL; Very Low Density Lipoprotein 16 mg/dL (5-40)
== END | disposition home or self-care (01) ==
LOC: LAB 08:56
PROVIDERS: PCP Nurse Practitioner Family; Referring Provider Nurse Practitioner Family; Visit Provider Nurse Practitioner Family
DX: E55.9 Vitamin D deficiency, unspecified (principal); I10 Essential (primary) hypertension; E78.00 Pure hypercholesterolemia, unspecified; E87.1 Hypo-osmolality and hyponatremia
CPT/HCPCS: 36415; 80053; 80061; 81001; 82306; 82533; 85025

== ENCOUNTER → 2023-08-09 | Outpatient (CLI) | payer BC, SELFPAY ==
[2023-08-09 11:07] LABS: Absolute Neutrophil Count 1.6 X10^3/uL (2.0-7.7); Basophil# 0.02 X10^3/uL; Basophil% 0.5 % (0-1); Eosinophil# 0.15 X10^3/uL; Hematocrit 37.4 % (37-47); Mean Corp Hgb Conc 32.1 g/dL (32-36); Mean Corpuscular Hgb 31.1 pg (27.0-32.0); Mean Corpuscular Volume 96.9 fL (81-99); Mean Platelet Vol. 11.1 fl (6.2-12.0); Monocyte# 0.32 X10^3/uL; Monocyte% 8.5 % (0-10); NRBC Flagged by Analyzer 0 % (0-5); Neutrophil # 1.59 X10^3/uL (2.7-7.7); Platelet Count 174 K/mm3 (150-450); RBC Distribution Width CV 11.7 % (11.6-14.6); RBC Distribution Width SD 41.1 fl (35.1-43.9); Red Blood Count 3.86 M/mm3 (4.2-5.4); Reticulocyte Count 1.16 % (0.5-1.5); White Blood Count 3.8 K/mm3 (4.4-11.0)
[2023-08-09 11:31] LABS: LDH 172 U/L (84-246)
[2023-08-14 10:07] LABS: PROEL- A/G Ratio 1.9 (0.7-1.7); PROEL- Albumin 4.5 g/dL (2.9-4.4); PROEL- Alpha-1 Globulin 0.2 g/dL (0.0-0.4); PROEL- Alpha-2 Globulin 0.5 g/dL (0.4-1.0); PROEL- Beta Globulin 0.9 g/dL (0.7-1.3); PROEL- Gamma Globulin 0.8 g/dL (0.4-1.8); PROEL- Globulin, Total 2.4 g/dL (2.2-3.9); PROEL- TOTAL PROTEIN 6.9 g/dL (6.0-8.5); PROEL-M-Spike Not Observed g/dL (Not Observed); PROELU- Albumin, Urine 58.4 % (.); PROELU- Alpha-1-Globulin,Ur 6.6 % (.); PROELU- Alpha-2-Globulin,Ur 11.1 % (.); PROELU- Beta Globulin, Ur 16.6 % (.); PROELU- Gamma Globulin, Ur 7.3 % (.); Total Protein, Ur 16.3 mg/dL (Not Estab.)
== END | disposition home or self-care (01) ==
LOC: LAB 09:52
PROVIDERS: PCP Nurse Practitioner Family; Referring Provider Nurse Practitioner Family; Visit Provider Nurse Practitioner Family
DX: R79.89 Other specified abnormal findings of blood chemistry (principal)
CPT/HCPCS: 36415; 83615; 84165; 84166; 85025; 85045

== ENCOUNTER → 2023-09-18 | Outpatient (CLI) | payer BC, SELFPAY ==
[2023-09-18 09:28] LABS: Absolute Lymphocyte Count 2.17 X10^3/uL (0.83-4.51); Absolute Neutrophil Count 2.2 X10^3/uL (2.0-7.7); Basophil# 0.03 X10^3/uL; Basophil% 0.6 % (0-1); Eosinophil# 0.16 X10^3/uL; Eosinophils% 3.2 % (0-5); Hematocrit 37.9 % (37-47); Hemoglobin 12.6 g/dL (12.0-15.0); Lymphocyte # 2.17 X10^3/ul (0.83-4.51); Lymphocyte % 42.9 % (19-41); Mean Corp Hgb Conc 33.2 g/dL (32-36); Mean Corpuscular Hgb 31.2 pg (27.0-32.0); Mean Corpuscular Volume 93.8 fL (81-99); Mean Platelet Vol. 11.1 fl (6.2-12.0); Monocyte# 0.42 X10^3/uL; Monocyte% 8.3 % (0-10); NRBC Flagged by Analyzer 0 % (0-5); Neutrophil % 43.4 % (47-70); Platelet Count 179 K/mm3 (150-450); RBC Distribution Width CV 11.3 % (11.6-14.6); RBC Distribution Width SD 38.7 fl (35.1-43.9); Red Blood Count 4.04 M/mm3 (4.2-5.4); White Blood Count 5.1 K/mm3 (4.4-11.0)
[2023-09-20 09:18] LABS: Pathologist Review Reviewed
[2023-09-20 14:09] LABS: PROEL- A/G Ratio 1.4 (0.7-1.7); PROEL- Albumin 4.1 g/dL (2.9-4.4); PROEL- Alpha-1 Globulin 0.2 g/dL (0.0-0.4); PROEL- Alpha-2 Globulin 0.7 g/dL (0.4-1.0); PROEL- Beta Globulin 1.1 g/dL (0.7-1.3); PROEL- Gamma Globulin 0.9 g/dL (0.4-1.8); PROEL- Globulin, Total 2.9 g/dL (2.2-3.9); PROEL-M-Spike Not Observed g/dL (Not Observed); PROELU- Albumin, Urine 54.4 % (.); PROELU- Alpha-1-Globulin,Ur 5.9 % (.); PROELU- Alpha-2-Globulin,Ur 7.3 % (.); PROELU- Beta Globulin, Ur 22.9 % (.); PROELU- Gamma Globulin, Ur 9.5 % (.); Total Protein, Ur 17.3 mg/dL (Not Estab.)
== END | disposition home or self-care (01) ==
LOC: LAB 08:39
PROVIDERS: PCP Nurse Practitioner Family; Referring Provider Nurse Practitioner Family; Visit Provider Nurse Practitioner Family
DX: R79.89 Other specified abnormal findings of blood chemistry (principal)
CPT/HCPCS: 84165; 84166; 85025

== ENCOUNTER → 2023-09-27 | Outpatient (CLI) | payer BC, SELFPAY ==
--- OUTSIDE RECORDS SUMMARY | 2023-09-27 07:38 | XMS RPT_ITS | CCD ---
Author Name Unknown Address [address] [place] [address] Organization [facility] Care Team Providers Care Pipe Fitter Name Role Phone Silvana Sutherland Unavailable Tereso Johnson Unavailable Foreign Riggs Unavailable Marce Jordan Unavailable Unavailable Maria Dolores Corbett Unavailable Unavailable Unavailable Unavailable Silvana Sutherland Unavailable Tereso Johnson Unavailable Foreign Riggs Unavailable Xander Carpenter Unavailable Arron Malik Unavailable Nikki Amaya Unavailable Unavailable Marce Jordan Unavailable Unavailable Unavailable Unavailable Arron Malik Unavailable Elle Almaguer Unavailable Unavailable Eddy Flores Unavailable Unavailable Brodie Huitron Unavailable candis Tapia Unavailable Unavailable Eddy Flores Unavailable Unavailable Eddy Mccoy Unavailable Unavailable JOSE ANTONIO YANES Attending Unavailable JOSE ANTONIO YANES Primary Care Unavailable JOSE ANTONIO YANES Admitting Unavailable Silvana Sutherland CNP Unavailable Brodie Huitron Unavailable Dr. Tereso Johnson Unavailable Dr. Foreign Riggs Unavailable Dr. Xander Carpenter Unavailable Arron Malik Unavailable Eddy Mccoy LPN Unavailable Unavailable Nikki Amaya Unavailable Unavailable Slarb PAINTINGS CONSERVATOR, Elle Unavailable Unavailable Unavailable Unavailable Myles PAINTINGS CONSERVATOR, Olga Unavailable Unavailable Silvana Sutherland Unavailable Gravius BEAN VINER, Miladis Unavailable Unavailable Kim Dubose MA Unavailable Unavailable Keysha Jama CNP Unavailable [phone] Silvana Sutherland Attending Unavailable Latanya Padilla MD Referring Unavailable Silvana Sutherland Consulting Unavailable Silvana Sutherland Unavailable Unavailable Silvana Sutherland Unavailable Allergies Allergy Classification Reported Allergen(s) Allergy Type Date of Onset Reaction(s) Facility NSAIDs (1 source) Ibuprofen Drug Allergy [facility] Work Phone: Medications Completed/Discontinued Medications Medication Drug Class(es) Dates Sig (Normalized) Sig (Original) ALPRAZolam 0.5 mg oral tablet (16 sources) Benzodiazepine Start: 10-11-2021 End: 08-23-2022 take 1 tablet by mouth once daily as needed for anxiety ALPRAZolam 0.5 mg oral tablet 1 (one) Tablet qd prn anxiety for 0 days Quantity: 30 {Tablet} Refills: 0 Ordered: 23-Aug-2022 Kim Dubose MA Start : 11-Oct-2021 End : 23-Aug-2022 Inactive Comments: Oarrs runAnxietyThirty Problems Active Problems Problem Classification Problem Date Documented Da te Episodic/Chronic Administrative/social admission (20 sources) Medical examinations/reports status; Translations: [Patient encounter status] 02-19-2018 Episodic Anxiety disorders (20 sources) Anxiety; Translations: [Anxiety] 02-19-2018 Chronic Past or Other Problems Problem Classification Problem Date Documented Da te Episodic/Chronic Unclassified (17 sources) Deliveries (Parity); Translations: [Deliveries (Parity)] 02-19-2018 Results Test Name Value Interpretation Reference Range Facil ity Vital Signs Date Time Vital Sign Value Performing Clinician Facility 02-28-2023 13:34-0400 Body height 162.56 cm Elle Almaguer LPN [facility] Work Phone: 02-28-2023 13:34-0400 Body mass index (BMI) [Ratio] 21.11 kg/m2 Elle Almaguer LPN [facility] Work Phone: [id number] Body surface area Derived from formula 1.59 m2 Elle Almaguer [facility] Work Phone: [id number] Body temperature 97.9 [degF] Elle Almaguer [facility] Work Phone: Encounters Encounter Date Encounter Type Care Provider Facility Start: 02-28-2023 End: 03-08-2023 Office outpatient visit 15 minutes Silvana Sutherland [facility] Start: 02-15-2023 End: 02-15-2023 Annotation/Addendum Silvana Mcclellanbev [facility] Start: 02-05-2023 End: 02-05-2023 Patient encounter procedure Silvana Deepikase [facility] Start: 10-17-2022 End: 10-17-2022 Annotation/Addendum Silvana Ena [facility] Start: 09-04-2022 End: 09-04-2022 Patient encounter procedure Silvana Sutherland [facility] Start: 08-29-2022 End: 08-29-2022 Patient encounter procedure Silvana Poese [facility] Start: 08-23-2022 ambulatory Silvana Sutherland [facility] Start: 08-23-2022 End: 08-29-2022 Office outpatient visit 25 minutes Silvana Poese [facility] Start: 08-23-2022 Review Silvana Sutherland Work Phone: [facility] Start: 08-16-2022 End: 08-16-2022 Lab Order Silvana Sutherland Work Phone: [facility] Start: 08-15-2022 End: 08-15-2022 Historical Summary Silvana Sutherland Work Phone: [facility] Start: 06-19-2022 End: 06-19-2022 Annotation/Addendum Silvana Sutherland Work Phone: [facility] Start: 04-28-2022 End: 04-28-2022 Phone Encounter Silvana Sutherland Work Phone: [facility] Start: 10-11-2021 End: 10-11-2021 Annotation/Addendum Silvana Sutherland Work Phone: [facility] Start: 09-16-2021 End: 09-16-2021 Patient encounter status Eddy Mccoy [facility] Work Phone: Start: 09-16-2021 End: 09-16-2021 Periodic preventive med est patient 40-64yrs Silvana Sutherland 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 Work Phone: [facility] Start: 08-30-2021 End: 08-30-2021 Lab Order Silvana Sutherland 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 Work Phone: [facility] Start: 10-26-2020 End: 10-26-2020 Patient encounter procedure JOSE ANTONIO Mina JOAQUÍN [facility] Start: 11-10-2019 End: 11-10-2019 Office outpatient visit 5 minutes Silvana Sutherland [facility] Start: 11-07-2019 End: 11-07-2019 Office outpatient visit 25 minutes Silvana Poese [facility] Start: 11-05-2019 End: 11-05-2019 Annotation/Addendum Silvana Sutherland [facility] Start: 09-11-2019 End: 09-12-2019 Office outpatient visit 5 minutes Silvana Poese [facility] Start: 07-01-2019 End: 07-01-2019 Annotation/Addendum Silvana Sutherland [facility] Start: 06-06-2019 End: 06-06-2019 Phone Encounter Silvana Sutherland [facility] Start: 06-04-2019 End: 06-04-2019 Annotation/Addendum Silvana Sutherland [facility] Start: 05-26-2019 End: 05-26-2019 Lab Order Silvana Sutherland [facility] Start: 04-16-2019 End: 04-16-2019 Annotation/Addendum Silvana Sutherland [facility] Start: 04-10-2019 End: 04-11-2019 Annotation/Addendum Silvana Sutherland [facility] Start: 04-09-2019 End: 04-09-2019 Annotation/Addendum Silvana Sutherland [facility] Start: 03-24-2019 End: 03-24-2019 Lab Order Silvana Sutherland [facility] Start: 03-24-2019 End: 03-24-2019 Annotation/Addendum Silvana Sutherland [facility] Start: 02-05-2019 End: 02-05-2019 Office outpatient visit 25 minutes Silvana Sutherland [facility] Start: 02-05-2019 End: 02-05-2019 Patient encounter status Silvana Sutherland Work Phone: [facility] Start: 05-22-2018 End: 05-22-2018 Lab Order Silvana Sutherland [facility] Start: 02-19-2018 End: 02-19-2018 Annotation/Addendum Silvana Sutherland [facility] Start: 02-19-2018 End: 02-19-2018 Patient encounter status Silvana Sutherland Work Phone: [facility] Start: 02-19-2018 End: 02-19-2018 Periodic preventive med est patient 40-64yrs Silvana Poese [facility] Start: 08-28-2017 End: 08-28-2017 Office outpatient visit 15 minutes Silvana Deepikase [facility] Start: 02-20-2017 End: 02-20-2017 Office outpatient visit 25 minutes Silvana Poese [facility] Start: 02-05-2017 End: 02-05-2017 Phone Encounter Silvana Sutherland [facility] Start: 10-03-2016 End: 10-03-2016 Office outpatient visit 15 minutes Silvana Poese [facility] Start: 06-30-2016 End: 06-30-2016 Historical Summary Silvana Poese [facility] Start: 06-27-2016 End: 06-27-2016 Office outpatient visit 15 minutes Silvana Deepikase [facility] Start: 06-27-2016 End: 06-27-2016 Patient encounter procedure Silvana Sutherland Work Phone: [facility] Start: 04-25-2016 End: 04-25-2016 Annotation/Addendum Silvana Sutherland [facility] Start: 04-25-2016 End: 04-25-2016 Periodic preventive med est patient 40-64yrs Silvana Poese [facility] Start: 04-22-2015 End: 04-22-2015 Office outpatient visit 40 minutes Silvana Sutherland [facility] Start: 03-05-2014 End: 03-05-2014 Patient encounter Silvana Sutherland [facility] Start: 03-05-2014 End: 03-05-2014 Physical examination Silvana Sutherland Work Phone: [facility] Start: 03-18-2013 End: 03-18-2013 Patient encounter Silvana Sutherland [facility] Start: 01-02-2013 End: 01-02-2013 Patient encounter Silvana Sutherland [facility] Start: 05-02-2012 End: 05-02-2012 Patient encounter Silvana Sutherland [facility] Start: 02-29-2012 End: 03-04-2012 Patient encounter Silvana Sutherland [facility] Start: 08-10-2011 End: 08-10-2011 Patient encounter Silvana Sutherland [facility] Start: 12-26-2010 End: 12-26-2010 Patient encounter Silvana Sutherland [facility] Start: 03-17-2010 End: 03-17-2010 Patient encounter Silvana Sutherland [facility] Start: 08-24-2009 End: 08-24-2009 Office outpatient visit 15 minutes Silvana Sutherland [facility] Start: 07-05-2009 End: 07-05-2009 Annotation/Addendum Silvana Sutherland [facility] Start: 06-29-2009 End: 06-29-2009 Patient encounter Silvana Sutherland [facility] Start: 06-15-2008 End: 06-15-2008 Office outpatient visit 10 minutes Silvana Sutherland [facility] Start: 06-08-2008 End: 06-08-2008 Office outpatient visit 15 minutes Silvana Sutherland [facility] Start: 06-03-2008 End: 06-03-2008 Office outpatient visit 15 minutes Silvana Sutherland [facility] Start: 05-14-2008 End: 05-15-2008 Patient encounter Silvana Sutherland [facility] Patient encounter procedure Eddy Mccoy LPN [facility] Work Phone: Patient encounter procedure Eddy Mccoy LPN [facility] Work Phone: Patient encounter procedure Kim Dubose MA [facility] Work Phone: Patient encounter procedure Elle Almaguer LPN [facility] Work Phone: Patient encounter status Eddy Darius PAINTINGS CONSERVATOR [facility] Work Phone: Patient encounter status Kim Dubose MA [facility] Work Phone: Patient encounter status Elle Almaguer PAINTINGS CONSERVATOR [facility] Work Phone: End: 04-22-2015 Physical examination Prachi Ny [facility] Work Phone: Procedures Date Procedure Procedure Detail Performing Clinician Start: 10-25-2019 End: 10-25-2019 Plastic Surgery Visit Report Comments: See Note; NOTES: [facility] [address] [place] [address] OFFICE VISIT Date of Service: 10/23/19 MR#: [id number] Acct: [id number] Name: SILVANA VILLAVICENCIO Rep #: [id number] : 1960 Provider: ABI Valderrama Age/Sex: 59/F Location: [facility] Status: Signed Intake Vital Signs10/23/19 Respiration 16 10/23/19 Pulse 58 L 10/23/19 Pulse Source Monitor 10/23/19 Temp 98.1 F 10/23/19 Temp Source Temporal 10/23/19 Pulse Oximetry (%) 99 10/23/19 Oxygen Delivery Method room air Intake Visit Reasons: post op surgery 08/11/19 Abalone Sheller Required: No Accompanied by: None Is patient in pain?: No Allergies ibuprofen Allergy (Verified 10/23/19 11:06) Unknown Medications Metoprolol Tartrate [Lopressor (beta alex)] 50 mg PO DAILY 08/06/15 [History Confirmed 09/10/19] cholecalciferol (vitamin D3) 25 mcg (1,000 unit) capsule 5,000 unit PO MOWEFR 06/12/19 [History Confirmed 09/10/19] omega 3-qlj-owk-fish oil 1,000 mg (120 mg-180 mg) capsule 2 cap PO DAILY 06/12/19 [History Confirmed 09/10/19] Ferrous Sulfate [Iron] 325 mg PO DAILY 07/30/19 [History Confirmed 09/10/19] Ondansetron [Zofran Odt] 4 mg PO 4X/DAY PRN PRN #30 tab 08/13/19 [Rx Confirmed 09/10/19] Patient : No PFSH Medical History 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, initial encounter (Chronic) Acquired absence of both breasts (Chronic) Breast cancer, right (Chronic) Anemia (Acute) Breast cancer in female (Acute) Hearing problem (Acute) High calcium levels (Acute) High cholesterol (Acute) Osteopenia (Acute) High blood pressure (Chronic) Surgical History History of breast reconstruction (Chronic) History of mastectomy (Chronic) Family History Aunt Breast cancer Depression with anxiety Father Cancer Hypertension High blood cholesterol Mother Heart disease Social History (Updated 10/25/19 @ 19:52 by Suri Valderrama, ENDOSCOPE TECHNICIAN-C) Smoking Status: Never smoker alcohol intake: current substance use type: does not use additional social history: DOES NOT USE ASPIRIN DOES NOT USE IBUPROFEN HPI post op surgery 08/11/19: Details: Postop visit from her surgery on 08/11/19 where she underwent revision right breast reconstruction with removal of textured saline implant and capsulectomy and delayed right breast reconstruction with placement of prepectoral cohesive gel implant (480 ml) and placement of Alloderm Select Restore acellular dermal matrix graft (327 cm2) and revision left breast reconstruction with removal of textured saline implant and capsulectomy and delayed left breast reconstruction with placement of prepectoral cohesive gel implant (480 ml) and placement of Alloderm Select Restore acellular dermal matrix graft (327 cm2). She was discharged from the hospital on 08/13/19. Comes in today without pain complaints. On exam, her breast incisions are dry and intact. Breasts are soft and symmetrical. Good breast contour noted. She states she has a persistent dry scabbed area right breast. On exam, it appears to be a dissolvable suture that worked its way to the surface and scabbed over. It was easily removed. Will have her place antibiotic ointment on the area daily for a week and then stop. Pathology of the right breast showed collagenized capsular tissue with mild reactive change and focal microcalcifications. The left breast showed collagenized capsular tissue with mild reactive change and focal microcalcifications. Operative cultures were negative. Continue compression when active. May stop wearing a bra at bedtime but if she discovers that she is uncomfortable or more swollen then she should continue to wear the support at night. She can return to work with no restrictions. Follow up on an as needed basis. Assessment AND Plan Problems 1. Breast cancer, right C50.911 2. 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 Pain from breast implant T85.848A 4. 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 History of bilateral saline breast implants Z98.82 6. Disproportion of reconstructed breast N65.1 7. 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 Family history of breast cancer Z80.3 Coding Level of Care Code Global Post Op Diagnoses Breast cancer, right C50.911 Capsular contracture of breast implant, initial encounter T85.44XA Pain from breast implant T85.848A Acquired absence of both breasts Z90.13 History of bilateral saline breast implants Z98.82 Disproportion of reconstructed breast N65.1 Deformity of reconstructed breast N65.0 Family history of breast cancer Z80.3 10/25/19 1953 <Electronically signed by Suri KURTZC> Date Suri Valderrama NP-C 10/25/19 1334<Electronically signed by Brodie Huitron MD> Cosigner Signature: Date (if applicable) Brodie Huitron MD CC: Silvana Vylaurense Start: 09-12-2019 End: 09-12-2019 Plastic Surgery Visit Report Comments: See Note; NOTES: [facility] [address] [place] [address] [place] [address] OFFICE VISIT Date of Service: 09/10/19 MR#: [id number] Acct: [id number] Name: SILVANA VILLAVICENCIO Rep #: [id number] : 1960 Provider: ABI Valderrama Age/Sex: 59/F [place] [facility] Status: Signed Intake Vital Signs09/10/19 Respiration 16 Intake Visit Reasons: post op surgery 08/11/19 Abalone Sheller Required: No Accompanied by: None Is patient in pain?: No Allergies ibuprofen Allergy (Verified 09/10/19 11:09) Unknown Medications Metoprolol Tartrate [Lopressor (beta alex)] 50 mg PO DAILY 08/06/15 [History Confirmed 09/10/19] cholecalciferol (vitamin D3) 25 mcg (1,000 unit) capsule 5,000 unit PO MOWEFR 06/12/19 [History Confirmed 09/10/19] omega 2-nhy-fqk-fish oil 1,000 mg (120 mg-180 mg) capsule 2 cap PO DAILY 06/12/19 [History Confirmed 09/10/19] Ferrous Sulfate [Iron] 325 mg PO DAILY 07/30/19 [History Confirmed 09/10/19] Ondansetron [Zofran Odt] 4 mg PO 4X/DAY PRN PRN #30 tab 08/13/19 [Rx Confirmed 09/10/19] Is last menstrual period known: No Post menopausal: Yes Patient : No PFSH Medical History Anemia (Acute) Breast cancer in female (Acute) Hearing problem (Acute) High calcium levels (Acute) High cholesterol (Acute) Osteopenia (Acute) High blood pressure (Chronic) Surgical History History of breast reconstruction (Acute) History of mastectomy (Acute) Family History Aunt Breast cancer Depression with anxiety Father Cancer Hypertension High blood cholesterol Mother Heart disease Social History (Updated 09/12/19 @ 14:20 by ABI Smith) Smoking Status: Never smoker alcohol intake: current substance use type: does not use additional social history: DOES NOT USE ASPIRIN DOES NOT USE IBUPROFEN HPI post op surgery 08/11/19: Details: Postop visit from her surgery on 08/11/19 where she underwent revision right breast reconstruction with removal of textured saline implant and capsulectomy and delayed right breast reconstruction with placement of prepectoral cohesive gel implant (480 ml) and placement of Alloderm Select Restore acellular dermal matrix graft (327 cm2) and revision left breast reconstruction with removal of textured saline implant and capsulectomy and delayed left breast reconstruction with placement of prepectoral cohesive gel implant (480 ml) and placement of Alloderm Select Restore acellular dermal matrix graft (327 cm2). She was discharged from the hospital on 08/13/19. Comes in today without pain complaints. On exam, her breast incisions are dry and intact. Breasts are soft and symmetrical. Good breast contour noted. Pathology of the right breast showed collagenized capsular tissue with mild reactive change and focal microcalcifications. The left breast showed collagenized capsular tissue with mild reactive change and focal microcalcifications. Operative cultures were negative. Continue head elevation and surgical bra or KYA warp for compression. Continue lifting restriction. Follow up one month. Tentative return to work is October 12, 2019. Assessment AND Plan Problems 1. Breast cancer, right C50.911 2. 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 Pain from breast implant T85.848A 4. 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 History of bilateral saline breast implants Z98.82 6. Disproportion of reconstructed breast N65.1 7. 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 Family history of breast cancer Z80.3 Coding Level of Care Code Global Post Op Diagnoses Breast cancer, right C50.911 Capsular contracture of breast implant, initial encounter T85.44XA Pain from breast implant T85.848A Acquired absence of both breasts Z90.13 History of bilateral saline breast implants Z98.82 Disproportion of reconstructed breast N65.1 Deformity of reconstructed breast N65.0 Family history of breast cancer Z80.3 09/12/19 1420 <Electronically signed by Suri ALEX> Date Suri Valderrama ENDOSCOPE TECHNICIAN-C 09/11/192051<Electronically signed by Brodie Huitron MD> Cosigner Signature: Date (if applicable) Brodie Huitron MD CC: Silvana Sutherland Start: 08-28-2019 End: 08-28-2019 Plastic Surgery Visit Report Comments: See Note; NOTES: [facility] [address] [place] [address] [place] [address] OFFICE VISIT Date of Service: 08/25/19 MR#: [id number] Acct: [id number] Name: SILVANA VILLAVICENCIO Rep #: [id number] : 1960 Provider: Brodie Huitron MD Age/Sex: 59/F [place] [facility] Status: Signed Intake Vital Signs08/25/19 Respiration 16 Intake Visit Reasons: post op surgery 08/11/19 Abalone Sheller Required: No Accompanied by: None Is patient in pain?: Yes (THE SIDE OF THE LEFT BREAST ) Pain scale (1-10): 2 Allergies ibuprofen Allergy (Verified 08/25/19 16:05) Unknown Medications Metoprolol Tartrate [Lopressor (beta alex)] 50 mg PO DAILY 08/06/15 [History Confirmed 08/25/19] cholecalciferol (vitamin D3) 25 mcg (1,000 unit) capsule 5,000 unit PO MOWEFR 06/12/19 [History Confirmed 08/25/19] omega 7-jll-hec-fish oil 1,000 mg (120 mg-180 mg) capsule 2 cap PO DAILY 06/12/19 [History Confirmed 08/25/19] Ferrous Sulfate [Iron] 325 mg PO DAILY 07/30/19 [History Confirmed 08/25/19] Cefadroxil [Duricef] 500 mg PO BID #30 cap 08/13/19 [Rx Confirmed 08/25/19] Diazepam [Valium] 5 mg PO 4X/DAY PRN PRN #30 tab 08/13/19 [Rx Confirmed 08/25/19] Docusate Sodium [Colace] 100 mg PO BID #60 cap 08/13/19 [Rx Confirmed 08/25/19] Ondansetron [Zofran Odt] 4 mg PO 4X/DAY PRN PRN #30 tab 08/13/19 [Rx Confirmed 08/25/19] Is last menstrual period known: No Post menopausal: Yes Patient : No PFSH Medical History Anemia (Acute) Breast cancer in female (Acute) Hearing problem (Acute) High calcium levels (Acute) High cholesterol (Acute) Osteopenia (Acute) High blood pressure (Chronic) Surgical History History of breast reconstruction (Acute) History of mastectomy (Acute) Family History Aunt Breast cancer Depression with anxiety Father Cancer Hypertension High blood cholesterol Mother Heart disease Social History (Updated 08/28/19 @ 10:56 by Suri Valderrama, ENDOSCOPE TECHNICIAN-C) Smoking Status: Never smoker alcohol intake: current substance use type: does not use additional social history: DOES NOT USE ASPIRIN DOES NOT USE IBUPROFEN HPI post op surgery 08/11/19: Details: Postop visit from her recent surgery on 08/11/19 where she underwent revision right breast reconstruction with removal of textured saline implant and capsulectomy and delayed right breast reconstruction with placement of prepectoral cohesive gel implant (480 ml) and placement of Alloderm Select Restore acellular dermal matrix graft (327 cm2) and revision left breast reconstruction with removal of textured saline implant and capsulectomy and delayed left breast reconstruction with placement of prepectoral cohesive gel implant (480 ml) and placement of Alloderm Select Restore acellular dermal matrix graft (327 cm2). She was discharged from the hospital on 08/13/19. Comes in today denying complaints. On exam, her breast incisions are dry and intact. Breasts are soft and symmetrical. Good breast contour noted. Minor bruising noted on right breast has resolved. Drainage has been about 15 ml per side per day. Remaining two breast drains were removed today without difficulty. Pathology of the right breast showed collagenized capsular tissue with mild reactive change and focal microcalcifications. The left breast showed collagenized capsular tissue with mild reactive change and focal microcalcifications. Operative cultures were negative. She can stop the Cefadroxil now that the drains are removed. Continue head elevation and surgical bra compression. Continue lifting restriction. Follow up two weeks. Tentative return to work mid September. Assessment AND Plan Problems 1. Breast cancer, right C50.911 2. 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 Pain from breast implant T85.848A 4. 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 History of bilateral saline breast implants Z98.82 6. Disproportion of reconstructed breast N65.1 7. 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 Family history of breast cancer Z80.3 Coding Level of Care Code Global Post Op Diagnoses Breast cancer, right C50.911 Capsular contracture of breast implant, initial encounter T85.44XA Pain from breast implant T85.848A Acquired absence of both breasts Z90.13 History of bilateral saline breast implants Z98.82 Disproportion of reconstructed breast N65.1 Deformity of reconstructed breast N65.0 Family history of breast cancer Z80.3 08/27/19 1800 <Electronically signed by Brodie Huitron MD> Date Brodie Huitron MD 08/28/19 1057<Electronically signed by Suri ALEX> Cosigner Signature: Date (if applicable) Suri aVlderrama CC: Silvana Sutherland Start: 08-22-2019 End: 08-22-2019 Plastic Surgery Visit Report Comments: See Note; NOTES: [facility]astic [facility] Surgery [address] [place] [address] [address] [place] [address] OFFICE VISIT Date of Service: 08/20/19 MR#: [id number] Acct: [id number] Name: SILVANA VILLAVICENCIO Rep #: [id number] : 1960 Provider: Brodie Huitron MD Age/Sex: 59/F [facility] [facility] Status: Signed Intake Vital Signs08/20/19 BMI 21.6 08/20/19 Respiration 16 Intake Visit Reasons: postop surgery 08/11/19 Abalone Sheller Required: No Accompanied by: None Is patient in pain?: No Allergies ibuprofen Allergy (Verified 08/20/19 12:02) Unknown Medications Metoprolol Tartrate [Lopressor (beta alex)] 50 mg PO DAILY 08/06/15 [History Confirmed 08/11/19] cholecalciferol (vitamin D3) 25 mcg (1,000 unit) capsule 5,000 unit PO MOWEFR 06/12/19 [History Confirmed 07/30/19] omega 4-wsv-wzl-fish oil 1,000 mg (120 mg-180 mg) capsule 2 cap PO DAILY 06/12/19 [History Confirmed 07/30/19] Ferrous Sulfate [Iron] 325 mg PO DAILY 07/30/19 [History Confirmed 07/30/19] Cefadroxil [Duricef] 500 mg PO BID #30 cap 08/13/19 [Rx] Diazepam [Valium] 5 mg PO 4X/DAY PRN PRN #30 tab 08/13/19 [Rx] Docusate Sodium [Colace] 100 mg PO BID #60 cap 08/13/19 [Rx] Ondansetron [Zofran Odt] 4 mg PO 4X/DAY PRN PRN #30 tab 08/13/19 [Rx] Is last menstrual period known: No Post menopausal: Yes Patient : No PFSH Medical History Anemia (Acute) Breast cancer in female (Acute) Hearing problem (Acute) High calcium levels (Acute) High cholesterol (Acute) Osteopenia (Acute) High blood pressure (Chronic) Surgical History History of breast reconstruction (Acute) History of mastectomy (Acute) Family History Aunt Breast cancer Depression with anxiety Father Cancer Hypertension High blood cholesterol Mother Heart disease Social History (Updated 08/22/19 @ 14:43 by Brodie Huitron MD) Smoking Status: Never smoker alcohol intake: current substance use type: does not use additional social history: DOES NOT USE ASPIRIN DOES NOT USE IBUPROFEN HPI postop surgery 08/11/19: Details: Postop visit from her recent surgery on 08/11/19 where she underwent revision right breast reconstruction with removal of textured saline implant and capsulectomy and delayed right breast reconstruction with placement of prepectoral cohesive gel implant (480 ml) and placement of Alloderm Select Restore acellular dermal matrix graft (327 cm2) and revision left breast reconstruction with removal of textured saline implant and capsulectomy and delayed left breast reconstruction with placement of prepectoral cohesive gel implant (480 ml) and placement of Alloderm Select Restore acellular dermal matrix graft (327 cm2). She was discharged from the hospital on 08/13/19. Comes in today with some incisional discomfort. On exam, her breast incisions are dry and intact. Breasts are soft and symmetrical. Good breast contour noted. Minor bruising noted on right breast is resolving. Drainage has been about 50 ml per side per day. Two breast drains were removed today without difficulty, one from each breast. Pathology was discussed with the patient. The right breast showed collagenized capsular tissue with mild reactive change and focal microcalcifications. The left breast showed collagenized capsular tissue with mild reactive change and focal microcalcifications. Operative cultures were negative. She will continue the Cefadroxil until the drains are removed. Continue head elevation and surgical bra. Continue lifting restriction. Followup one week for removal of remaining two drains. Assessment AND Plan Problems 1. Breast cancer, right C50.911 2. 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 Pain from breast implant T85.848A 4. 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 History of bilateral saline breast implants Z98.82 6. Disproportion of reconstructed breast N65.1 7. 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 Family history of breast cancer Z80.3 Coding Level of Care Code Global Post Op Diagnoses Breast cancer, right C50.911 Capsular contracture of breast implant, initial encounter T85.44XA Pain from breast implant T85.848A Acquired absence of both breasts Z90.13 History of bilateral saline breast implants Z98.82 Disproportion of reconstructed breast N65.1 Deformity of reconstructed breast N65.0 Family history of breast cancer Z80.3 08/22/19 1443 <Electronically signed by Brodie Huitron MD> Date Brodie Huitron MD Cosigner Signature: Date (if applicable) CC: Silvana Mcclellanbev Start: 08-11-2019 End: 08-11-2019 History and Physical Exam Comments: See Note; NOTES: [facility] Medical Records Department [address] [place] [address] History and Physical 08/10/19 2247 MR#: [id number] Acct: [id number] Name: SILVANA VILLAVICENCIO Rep #: [id number] : 1960 59 From: Brodie Huitron MD PCP: ABI Wilburn Status: [facility] Location: [place] [address] History and Physical Date of Admission: 08/11/19 HISTORY OF PRESENT ILLNESS 59 year old woman presents with bilateral breast pain, worse on the left. On the left breast, the pain is superior and medial with firmness. On the right breast, the pain is not as severe as it is mostly superior and lateral. She also has noted the right breast is a little smaller than on the left. She denies trauma to her breasts. She denies nipple drainage on the left. The right nipple is reconstructed. She developed right breast cancer in 1989 that resulted in a mastectomy. She also underwent a prophylactic mastectomy on the left. She states no chemotherapy was needed and no radiation therapy was needed. She had breast reconstruction with the placement of saline implants which were textured. The implant was placed under the muscle on the right as she has noticed intermittent pectoralis muscle animation deformity with associated pain. For the left breast, the implant was placed on top of the muscle. She presents at this time for surgical options for treatment regarding revising her breast reconstruction secondary to her painful symptomatology. She had an MRI don on 07/22/19. It showed bilateral mastectomy with saline implant placements bilaterally. Prominent follicles in both implants. No evidence of intracapsular or extracapsular rupture. No enhancing lesions present. There are no enlarged or abnormal lymph nodes. There is no abnormality in the visualized regions of the chest or liver. PAST MEDICAL HISTORY Anemia Breast cancer in female Hearing problem High calcium levels High cholesterol Osteopenia High blood pressure PAST SURGICAL HISTORY breast reconstruction with saline implants mastectomy ALLERGIES ibuprofen MEDICATIONS Metoprolol Tartrate [Lopressor (Beta Alex)] cholecalciferol (vitamin D3) multivitamin with iron tablet omega 1-nvq-hbb-fish oil FAMILY HISTORY Aunt - Breast cancer, Depression with anxiety Father - Cancer, Hypertension, High blood cholesterol Mother - Heart disease SOCIAL HISTORY Smoking Status: Never smoker alcohol intake: current substance use type: does not use REVIEW OF SYSTEMS General - Denies fever, fatigue, and weight loss. Eyes - Denies cataracts and glaucoma. ENT - Denies nasal congestion and sore throat. Endocrine - Denies excessive thirst and urination. Had right breast cancer with bilateral mastectomy and reconstruction with saline implants. Skin - Denies suspicious lesions and skin cancer. Musculoskeletal - Denies joint pain, joint stiffness, weakness of muscles and joints, and arthritis. Has back pain. Neuro - Denies headaches. Cardiovascular - Denies chest pain, fatigue, and shortness of breath with exertion. Psych - Denies anxiety and depression. Respiratory - Denies chronic cough and shortness of breath. Gastrointestinal - Denies nausea, vomiting, diarrhea, and constipation. Hematologic - Denies abnormal bruising and bleeding. Genitourinary - Denies hematuria and urinary frequency. PHYSICAL EXAMINATION General - Alert and Oriented. HEENT - PERRL. EOMI. Throat is clear. Neck - Supple and nontender. No cervical adenopathy. Breast - No palpable masses. The right breast is slightly smaller than the left breast. The nipple is located at the inframammary fold. There is firmness and tenderness bilaterally on the superior aspect of the breasts worse on the left. There is firmness and tenderness on the medial aspect of the left breast with some lateral migration. On the right breast, there is some mild firmness and tenderness on the lateral aspect of the right breast. No axillary adenopathy. When the patient raises her right arm, there is some dimpling of the skin secondary to the muscle animation deformity. Lungs - Clear to auscultation. Heart - Regular rate and rhythm. Abdomen - Soft and nondistended. Mild redundant skin and subcutaneous tissue between the umbilicus and the pubic area. No abdominal wall scars noted. Extremities - FROM. No axillary adenopathy. Radial pulses are palpable. Neuro - CN II-XII grossly intact. Psych - Normal mood and affect. ASSESSMENT 1. Right breast cancer. 2. History of prophylactic subcutaneous mastectomy left breast. 3. Acquired absence bilateral breasts. 4. History of bilateral saline breast implants. 5. Painful capsular contracture bilateral breasts, worse on the left. 6. Disproportion reconstructed breasts with asymmetry with the right breast reconstruction a little smaller. 7. Deformity reconstructed breasts. 8. Pectoralis muscle animation deformity right breast reconstruction. 9. Family history of breast cancer. PLAN Discussed various breast reconstruction options for the patient. The patient has had her saline breast implants for 28 years. Over the years, she has developed bilateral capsular contracture worse on the left. The right breast has become a little smaller over the years. The records from [facility] were obtained. The saline implants were textured. On the right it was placed in the submuscular position. On the left it was placed in the prepectoral position. She is not interested in autogenous reconstruction at this time. The saline breast implants can be removed with associated capsulectomy. After the capsulectomy, would enlarge the pocket medially to help define the cleavage better. She had some concerns that the breasts were too far apart. Would replace the saline implants with cohesive gel implants. Also would place acellular dermal matrix graft to help act as a sling inferiorly for shaping of the breast. One option would be to use the same submuscular pocket and place the acellular dermal matrix graft inferiorly for coverage of the implant. Since the left breast implant is above the muscle, then can create a submuscular pocket for the replacement cohesive gel implant along with acellular dermal matrix graft inferiorly. However, with the pectoralis muscle animation deformity on the right, it was discussed with the patient that the cohesive gel implants can be placed on top of the muscle in a prepectoral position. This would help to minimize the pectoralis muscle animation deformity. Any tissue that is removed will be sent to Pathology for analysis to rule out carcinoma. Any abnormal fluid that is seen will be cultured. A positive culture will necessitate antibiotic therapy. Preoperatively an MRI was done on 07/22/19. It showed bilateral mastectomy with saline implant placements bilaterally. Prominent follicles in both implants. No evidence of intracapsular or extracapsular rupture. No enhancing lesions present. There are no enlarged or abnormal lymph nodes. There is no abnormality in the visualized regions of the chest or liver. 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 The treatment for this is generally removal of the textured implant with capsulectomy. After placement of the cohesive gel implants, if there is some loose skin and tissue inferiorly, will proceed with a mastopexy to help with symmetry and to help complete the breast reconstruction. Patient was informed of the risks and complications of the procedure including alternatives to surgery. These were discussed with the patient personally. Patient voices understanding and wishes to proceed. Some of the risks and complications were included in a form from the [place] [employer]. Surgery will be done under general anesthesia with a surgical observation overnight stay in the hospital. She will have drains in for several days (10-14) and be maintained on antibiotics until the drains are removed. 08/11/19 1344 <Electronically signed by Brodie Huitron MD> Date Brodie Huitron MD Cosigner Signature: Date (if applicable) CC: ENDOSCOPE TECHNICIANJaynaC Silvana Sutherland; Brodie Huitron MD; Silvana Sutherland Signed Silvana Sutherland Start: 07-22-2019 End: 07-22-2019 Breast Bilateral W/O and W Comments: See Note; NOTES: [facility] Imaging Services [address] [place] [id number] Breast Bilateral W/O and W MR#: [id number] Acct: [id number] Name: SILVANA VILLAVICENCIO Rep #: [id number] : 1960 F 59 From: Payam Lowry MD PCP: ABI Wilburn Status: REG CLI Study: Breast Bilateral W/O and W Date of Exam: 07/22/19 Exam# [id number] Ordering Dr: Brodie Huitron MD STUDY: BILATERAL BREAST MR WITHOUT AND WITH CONTRAST REASON FOR EXAM: Female, 59 years old. Verification of no breast cancer preoperatively for revision of reconstruction from 29 years ago. Bilateral saline implants, right greater than left. History of bilateral breast pain from contractures. TECHNIQUE: Multi-sequence multi-echo imaging of both breasts was performed with a dedicated breast coil. T1-weighted and T2-weighted images were performed before the administration of contrast. T1-weighted images were also performed after the administration of Dotarem 10cc iv without complications. COMPARISON: No comparison studies. FINDINGS: Bilateral mastectomy with saline implant placements bilaterally. Prominent follicles in both implants. No evidence of intracapsular or extracapsular rupture. No enhancing lesions present. There are no enlarged or abnormal lymph nodes. There is no abnormality in the visualized regions of the chest or liver. MRI/Breast Bilateral W/O and W IMPRESSION: Bilateral mastectomy with saline implant placement without other abnormality. CATEGORY: BIRADS Category 2: Benign. A letter regarding these results will be sent to the patient by the facility within 30 days. Electronically Signed: Payam Lowry MD at 16:57 EST , Service support , CC: ABI Sutherland; Brodie Huitron MD Staff Nurse [employer] Resource Team: Signed Brodie Huitron Work Phone: Start: 06-14-2019 End: 06-14-2019 Plastic Surgery Visit Report Comments: See Note; NOTES: [facility] Plastic AND Reconstructive Surgery [address] [place] [address] OFFICE VISIT Date of Service: 06/12/19 MR#: [id number] Acct: [id number] Name: SILVANA VILLAVICENCIO Rep #: [id number] : 1960 Provider: Brodie Huitron MD Age/Sex: 59/F Location: [facility] Status: Signed Intake Vital Signs06/12/19 Body Mass Index (BMI) 20.5 06/12/19 Height 5 ft 5.75 in 06/12/19 Weight: 124 lb 8 oz Intake Visit Reasons: evaluation breast reconstruction Abalone Sheller Required: No Accompanied by: None Is patient in pain?: No Allergies ibuprofen Allergy (Verified 06/12/19 15:49) Unknown Medications Metoprolol Tartrate [Lopressor (Beta Alex)] 50 mg PO DAILY 08/06/15 [History Confirmed 08/06/15] cholecalciferol (vitamin D3) 1,000 unit capsule 1,000 unit PO DAILY 06/12/19 [History Confirmed 06/12/19] multivitamin with iron tablet 1 tab PO DAILY 06/12/19 [History Confirmed 06/12/19] omega 0-vds-mdd-fish oil 1,000 mg (120 mg-180 mg) capsule 2 cap PO DAILY 06/12/19 [History Confirmed 06/12/19] Is last menstrual period known: No Post menopausal: Yes Patient : No [facility] Medical History Anemia (Acute) Breast cancer in female (Acute) Hearing problem (Acute) High calcium levels (Acute) High cholesterol (Acute) Osteopenia (Acute) High blood pressure (Chronic) Surgical History History of breast reconstruction (Acute) History of mastectomy (Acute) Family History Aunt Breast cancer Depression with anxiety Father Cancer Hypertension High blood cholesterol Mother Heart disease Social History (Updated 06/14/19 @ 21:07 by Brodie Huitron MD) Smoking Status: Never smoker alcohol intake: current substance use type: does not use additional social history: DOES NOT USE ASPIRIN DOES NOT USE IBUPROFEN HPI evaluation breast reconstruction: Details: HISTORY OF PRESENT ILLNESS 59 year old woman presents with bilateral breast pain, worse on the left. On the left breast, the pain is superior and medial with firmness. On the right breast, the pain is not as severe as it is mostly superior and lateral. She also has noted the right breast is a little smaller than on the left. She denies trauma to her breasts. She denies nipple drainage on the left. The right nipple is reconstructed. She developed right breast cancer in 1989 that resulted in a mastectomy. She also underwent a prophylactic mastectomy on the left. She states no chemotherapy was needed and no radiation therapy was needed. She had breast reconstruction with the placement of saline implants. She doesn't know if the implants were textured. She is pretty sure the implant was placed under the muscle on the right as she has noticed intermittent pectoralis muscle animation deformity with associated pain. For the left breast she is not sure if the implant was placed on top of the muscle or below the muscle. She presents at this time for surgical options for treatment regarding revising her breast reconstruction secondary to her painful symptomatology. REVIEW OF SYSTEMS General - Denies fever, fatigue, and weight loss. Eyes - Denies cataracts and glaucoma. ENT - Denies nasal congestion and sore throat. Endocrine - Denies excessive thirst and urination. Had right breast cancer with bilateral mastectomy and reconstruction with saline implants. Skin - Denies suspicious lesions and skin cancer. Musculoskeletal - Denies joint pain, joint stiffness, weakness of muscles and joints, and arthritis. Has back pain. Neuro - Denies headaches. Cardiovascular - Denies chest pain, fatigue, and shortness of breath with exertion. Psych - Denies anxiety and depression. Respiratory - Denies chronic cough and shortness of breath. Gastrointestinal - Denies nausea, vomiting, diarrhea, and constipation. Hematologic - Denies abnormal bruising and bleeding. Genitourinary - Denies hematuria and urinary frequency. PHYSICAL EXAMINATION General - Alert and Oriented. HEENT - PERRL. EOMI. Throat is clear. Neck - Supple and nontender. No cervical adenopathy. Breast - No palpable masses. The right breast is slightly smaller than the left breast. The nipple is located at the inframammary fold. There is firmness and tenderness bilaterally on the superior aspect of the breasts worse on the left. There is firmness and tenderness on the medial aspect of the left breast with some lateral migration. On the right breast, there is some mild firmness and tenderness on the lateral aspect of the right breast. No axillary adenopathy. When the patient raises her right arm, there is some dimpling of the skin secondary to the muscle animation deformity. Lungs - Clear to auscultation. Heart - Regular rate and rhythm. Abdomen - Soft and nondistended. Mild redundant skin and subcutaneous tissue between the umbilicus and the pubic area. No abdominal wall scars noted. Extremities - FROM. No axillary adenopathy. Radial pulses are palpable. Neuro - CN II-XII grossly intact. Psych - Normal mood and affect. ASSESSMENT 1. Right breast cancer. 2. History of prophylactic subcutaneous mastectomy left breast. 3. Acquired absence bilateral breasts. 4. History of bilateral saline breast implants. 5. Painful capsular contracture bilateral breasts, worse on the left. 6. Disproportion reconstructed breasts with asymmetry with the right breast reconstruction a little smaller. 7. Deformity reconstructed breasts. 8. Pectoralis muscle animation deformity right breast reconstruction. 9. Family history of breast cancer. PLAN Discussed various breast reconstruction options for the patient. The patient has had her saline breast implants for 28 years. Over the years, she has developed bilateral capsular contracture worse on the left. The right breast has become a little smaller over the years. She is not interested in autogenous reconstruction at this time. The saline breast implants can be removed with associated capsulectomy. After the capsulectomy, would enlarge the pocket medially to help define the cleavage better. She had some concerns that the breasts were too far apart.Would replace the saline implants with cohesive gel implants. Also would place acellular dermal matrix graft to help act as a sling inferiorly for shaping of the breast. One option would be to use the same submuscular pocket and place the acellular dermal matrix graft inferiorly for coverage of the implant. If the left breast is above the muscle (patient is not sure) then can create a submuscular pocket for the replacement cohesive gel implant along with acellular dermal matrix graft inferiorly. However, with the pectoralis muscle animation deformity on the right, it was discussed with the patient that the cohesive gel implants can be placed on top of the muscle in a prepectoral position. This would help to minimize the pectoralis muscle animation deformity. Any tissue that is removed will be sent to Pathology for analysis to rule out carcinoma. Any abnormal fluid that is seen will be cultured. A positive culture will necessitate antibiotic therapy. Preoperatively will obtain an MRI to look for any suspicious areas that may be present before proceeding with bilateral breast reconstruction. Patient is not sure if the saline implants were textured. Textured saline implants were common during that time frame. 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 The treatment for this is generally removal of the textured implant with capsulectomy. After placement of the cohesive gel implants, if there is some loose skin and tissue inferiorly, will proceed with a mastopexy to help with symmetry and to help complete the breast reconstruction. Before the surgery, will obtain the old records from the early 1989'. She states the surgery was done at [facility] in [place]. Patient wants to think about the proposed surgeries and let me know when she wants to schedule it. Patient was informed of the risks and complications of the procedure including alternatives to surgery. These were discussed with the patient personally. Patient voices understanding and wishes to proceed. Some of the risks and complications were included in a form from the [place] [employer]. Surgery will be done under general anesthesia with a surgical observation overnight stay in the hospital. She will have drains in for several days (10-14) and be maintained on antibiotics until the drains are removed. Assessment AND Plan Problems 1. Breast cancer, right C50.911 2. History of prophylactic mastectomy of left breast Z90.12 3. Acquired absence of both breasts Z90.13 4. History of bilateral saline breast implants Z98.82 5. Capsular contracture of breast implant, initial encounter T85.44XA 6. Pain from breast implant T85.848A 7. Disproportion of reconstructed breast N65.1 8. Deformity of reconstructed breast N65.0 9. Family history of breast cancer Z80.3 Coding Level of Care Code Off vis,new,level 5 Diagnoses Breast cancer, right C50.911 History of prophylactic mastectomy of left breast Z90.12 Acquired absence of both breasts Z90.13 History of bilateral saline breast implants Z98.82 Capsular contracture of breast implant, initial encounter T85.44XA Pain from breast implant T85.848A Disproportion of reconstructed breast N65.1 Deformity of reconstructed breast N65.0 Family history of breast cancer Z80.3 06/14/19 2107 <Electronically signed by Brodie Huitron MD> Date Brodie Huitron MD Cosigner Signature: Date (if applicable) CC: ENDOSCOPE TECHNICIAN-Aminah Sutherland Start: 02-05-2019 End: 02-05-2019 L/S Spine Min 4 Views Comments: See Note; NOTES: [facility] Imaging Services [address] [place] [address] L/S Spine Min 4 Views MR#: [id number] Acct: [id number] Name: SILVANA VILLAVICENCIO Rep #: [id number] : 1960 F 58 From: Jorden Ashley MD PCP: Silvana Sutherland NP Status: REG CLI Study: L/S Spine Min 4 Views Date of Exam: 02/05/19 Exam# [id number] Ordering Dr: Silvana Sutherland ENDOSCOPE TECHNICIAN-C STUDY: X-RAY - LUMBAR SPINE REASON FOR EXAM: Female, 58 years old. Back pain TECHNIQUE: 5 view(s) of the lumbar spine were obtained. COMPARISON: None FINDINGS: There is no evidence of fracture or dislocation in the lumbar spine. The vertebral body heights are well-maintained. There are mild degenerative changes in the lower lumbar spine with disc space narrowing. There is grade 1 anterolisthesis of L4 with respect to L5. RAD/L/S Spine Min 4 Views IMPRESSION: No fracture or dislocation in the lumbar spine. Mild degenerative changes in the lower lumbar spine with disc space narrowing. Grade 1 anterolisthesis of L4 with respect to L5. Electronically Signed: Jorden Ashley, at 21:21 EDT Tel , Service support , CC: NAYANA Sutherland Staff Nurse [facility] Resource Team: Signed Silvana Sutherland Work Phone: Start: 06-27-2016 End: 06-27-2016 Dexa Bone Density Study () Comments: See Note; NOTES: [facility] Imaging Services [address] [place] [id number] [address] 4d Dexa Bone Density Study () MR#: [id number] Acct: [id number] Name: SILVANA VILLAVICENCIO Rep #: [id number] : 1960 F 56 From: Eduardo Lizarraga MD PCP: Silvana Sutherland Status: REG CLI Study: Dexa Bone Density Study () Date of Exam: 06/27/16 Exam# [id number] Ordering Dr: Silvana Sutherland STUDY: DUAL ENERGY X-RAY ABSORPTIOMETRY / DXA REASON FOR EXAM: Female, 56 years old. The patient is postmenopausal. Loss of height. TECHNIQUE: Bone Mineral Density (BMD) measurements of lumbar spine and bilateral hips were obtained. COMPARISON: None. FINDINGS: Lumbar Spine (L1-L4): g/cm2 (1.036) / T-score (-1.2) / Z-score (-0.3) Findings are suggestive of osteopenia with a moderate fracture risk. Left Femur Total: g/cm2 (0.786) / T-score (-1.8) / Z-score (-1.1) Left Femoral Neck: g/cm2 (0.750) / T-score (-2.1) / Z-score (-1.0) Right Femur Total: g/cm2 (0.730) / T-score (-2.2) / Z-score (-1.5) Right Femoral Neck: g/cm2 (0.705) / T-score (-2.4) / Z-score (-1.3) HPBD/Dexa Bone Density Study (HP) IMPRESSION: The patient is considered osteopenic as outlined below according to World Humberto Organization (WHO) criteria with a moderate fracture risk. Reference Information: The T-score is the number of standard deviations above or below the standard which is normal for young adults at their peak bone mineral density. The World Health Organization (WHO) interprets the T-scores as follows: Above -1 Normal bone density Between -1 and -2.5 Osteopenia Equal to / or below -2.5 Osteoporosis As a practical clinical guideline, osteopenia may be graded as follows: Mild -1 through -1.5 Moderate -1.6 through -2.0 Severe -2.1 through -2.4 The Z-score is the number of standard deviations above or below age-matched controls. A Z-score of less than -1.5 would be considered abnormal. References: 1. NIH Osteoporosis and Related Bone Diseases http://www.osteo.org 2. International Society for Clinical Densitometry http://www.iscd.org 3. National Osteoporosis Foundation http://www.nof.org Electronically Signed: Eduardo Lizarraga MD at 12:46 EST Tel [phone], Service support [phone], CC: Silvana Sutherland Staff Nurse [facility] Resource Team: Signed Silvana Sutherland Work Phone: Start: 08-06-2015 End: 08-06-2015 Emergency Department Summary Comments: See Note; NOTES: [facility] Medical Records Department [address] [place] [address] Emergency Department Summary 08/06/153 MR#: [id number] Acct: [id number] Name: SILVANA VILLAVICENCIO Rep #: [id number] : 1960 55 From: Dedrick Wolfe MD PCP: Latanya Padilla MD Status: REG ER - ER Visit Summary Date of Service: 08/06/15 Chief Complaint: Drainage left eye with redness and swelling History of Present Illness: The patient is a 55 F who was 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 Patient states symptoms started this evening. She does not wear contacts. She does complain of colored drainage and foreign body sensation. She denies photophobia. She has no other symptoms. Review of Systems: Her dad passed straight is negative for glaucoma or diabetes. She denies photophobia, change in vision or history of trauma. Physical Examination: Patient's exam is consistent with conjunctivitis. There is no evidence of hordeolum. There is no preauricular lymphadenopathy. There is no pain with ocular movement. There is no abdomen of the lid, lash or lacrimal apparatus. There is no evidence of pre-septal cellulitis. Test Results: Not indicated Emergency Department Course: Since it is [place] and all pharmacies are closed patient was treated with ciprofloxacin eyedrops and bile was given to her Treatment Plan: Treat with ciprofloxacin ophthalmic solution Disposition: Discharged to home with instructions not to return to work as long as she has drainage Impression: Conjunctivitis left eye suspect infectious ED Disposition - Plan for ED Patient: Disposition: Home or Assisted Living Chief Complaint: Eye Problem Instructions: ED Conjunctivitis, Non-Specific Referrals: Latanya Padilla MD [Primary Care Provider] - 1 Week if not improving What to do if you have Problems For any increased pain, shortness of breath, bleeding, nausea or vomiting, chest pain, or any unexpected problems, contact your doctor. Call [facility] ([phone]) or report to the closest Emergency Room. Call 911 if necessary. 08/06/15 0357 <Electronically signed by Dedrick Wolfe MD> Date Dedrick Wolfe MD Cosigner Signature (If Indicated): Date CC: Latanya Padilla MD Silvana Sutherland Breast [facility] Plan of Treatment Date Care Activity Detail Author Start: 03-08-2023 Provider Instructions for Treatment Reviewed Lab [facility]; [facility] Work Phone: Start: 02-28-2023 Blood count complete auto&auto difrntl wbc CBC, PLATELETS & AUT DIFF (50626) [facility]; [facility] Work Phone: Start: 02-28-2023 Blood count reticulocyte automated RETICULOCYTE COUNT (19955) [facility]; [facility] Work Phone: Start: 02-28-2023 Lactate dehydrogenase ldh LDH (LD) (LACTATE DEHYDROGENASE) (08591) [facility]; [facility] Work Phone: Start: 02-28-2023 Procedure Education Eprescribed prescriptions (G8553) [facility]; [facility] Work Phone: Start: 02-28-2023 Protein electrophoretic fractj&quantj serum SPEP (06259) [facility]; [facility] Work Phone: Start: 02-28-2023 Protein total xcpt refractometry urine UPEP (53428) [facility]; [facility] Work Phone: Start: 02-15-2023 Cortisol total CORTISOL, A.M. (81288) [facility]; [facility] Work Phone: Start: 02-05-2023 25 hydroxy includes fractions if performed CALCIFEDIOL (24808) [facility]; [facility] Work Phone: Start: 02-05-2023 Blood count complete auto&auto difrntl wbc CBC, PLATELETS & AUT DIFF (57205) [facility]; [facility] Work Phone: Start: 02-05-2023 Comprehensive metabolic panel METABOLIC PANEL, COMPREHENSIVE (92347) [facility]; [facility] Work Phone: Start: 02-05-2023 Lipid panel LIPID PANEL (52676) [facility]; [facility] Work Phone: Start: 02-05-2023 Urinls dip stick/tablet reagnt non-auto micrscpy URINALYSIS W MICROSCOPY (10492) [facility]; [facility] Work Phone: Start: 09-04-2022 Acth stimulation panel adrenal insufficiency ACTH STIMULATION PANEL; FOR ADRENAL INSUFFICIENCY (66561) [facility]; [facility] Work Phone: Start: 08-29-2022 Adrenocorticotropic hormone acth ACTH (30592) [facility]; [facility] Work Phone: Start: 08-29-2022 Assay of thyroid stimulating hormone tsh TSH (THYROID STIMULATING HORMONE) (17606) [facility]; [facility] Work Phone: Start: 08-29-2022 Cortisol total CORTISOL, A.M. (56589) [facility]; [facility] Work Phone: Start: 08-23-2022 Creatinine other source MICROALB;CREAT RATION, RAND UR (75521) [facility]; [facility] Work Phone: Start: 08-23-2022 Procedure Education Eprescribed prescriptions (G8553) [facility]; [facility] Work Phone: Start: 08-23-2022 Provider Instructions for Treatment Follow up in 6 months [facility]; [facility] Work Phone: Start: 08-23-2022 Assay of osmolality urine OSMOLALITY URINE (15179) [facility]; [facility] Work Phone: Start: 08-23-2022 Assay of urine sodium SODIUM URINE (98860) [facility]; [facility] Work Phone: Start: 08-23-2022 Assay of osmolality blood OSMOLALITY BLOOD (85000) [facility]; [facility] Work Phone: Start: 08-16-2022 Assay of ferritin FERRITIN (45027) [facility]; [facility] Work Phone: Start: 08-16-2022 Assay of iron IRON (84159) [facility]; [facility] Work Phone: Start: 08-16-2022 Blood count reticulocyte automated RETICULOCYTE COUNT (25661) [facility]; [facility] Work Phone: Start: 08-16-2022 Cyanocobalamin vitamin b-12 VITAMIN B12 AND FOLATES (32460) [facility]; [facility] Work Phone: Start: 08-16-2022 Iron binding capacity IRON BINDING CAPACITY (TIBC) (77625) [facility]; [facility] Work Phone: Start: 08-15-2022 Urinalysis qual/semiquant except immunoassays URINALYSIS (45037) [facility]; [facility] Work Phone: Start: 06-19-2022 25 hydroxy includes fractions if performed CALCIFEDIOL (39845) [facility]; [facility] Work Phone: Start: 06-19-2022 Comprehensive metabolic panel METABOLIC PANEL, COMPREHENSIVE (27793) [facility]; [facility] Work Phone: Start: 06-19-2022 Blood count complete automated CBC & PLATELETS (AUTO) (34828) [facility]; [facility] Work Phone: Start: 06-19-2022 Lipid panel LIPID PANEL (06445) [facility]; [facility] Work Phone: Start: 09-16-2021 Procedure Education Eprescribed prescriptions (G8553) [facility]; [facility] Work Phone: Start: 09-16-2021 Provider Instructions for Treatment [facility]; [facility] Work Phone: Start: 08-30-2021 Glucose quantitative blood xcpt reagent strip GLUCOSE (41917) [facility]; [facility] Work Phone: Start: 08-30-2021 Urinalysis qual/semiquant except immunoassays URINALYSIS (46017) [facility]; [facility] Work Phone: Start: 08-30-2021 Blood count complete automated CBC & PLATELETS (AUTO) (82713) [facility]; [facility] Work Phone: Start: 08-30-2021 Lipid panel LIPID PANEL (53943) [facility]; [facility] Work Phone: Start: 04-13-2020 Blood count complete automated CBC & PLATELETS (AUTO) (41207) [facility] Work Phone: Start: 04-13-2020 Comprehensive metabolic panel Metabolic Panel, Comprehensive (99282) [facility] Work Phone: Start: 11-07-2019 Provider Instructions for Treatment [facility] Work Phone: Start: 11-05-2019 Urine albumin quantitative MICROALBUMIN: CREATININE RATIO (85779) AND (15473) [facility] Work Phone: Start: 11-05-2019 Assay of thyroid stimulating hormone tsh TSH (THYROID STIMULATING HORMONE) (64400) [facility]; [facility] Work Phone: Start: 11-05-2019 TSH Qn TSH (THYROID STIMULATING HORMONE) (73308) [facility] Work Phone: Start: 11-05-2019 Comprehensive metabolic panel Metabolic Panel, Comprehensive (44360) [facility] Work Phone: Start: 11-05-2019 Blood count complete automated CBC & PLATELETS (AUTO) (03411) [facility] Work Phone: Start: 11-05-2019 25 hydroxy includes fractions if performed CALCIFEDIOL (84154) [facility] Work Phone: Start: 11-05-2019 Lipid panel LIPID PANEL (63637) [facility] Work Phone: Start: 06-06-2019 Lipid panel LIPID PANEL (14114) [facility] Work Phone: Start: 06-06-2019 25 hydroxy includes fractions if performed CALCIFEDIOL (48556) [facility] Work Phone: Start: 06-06-2019 Comprehensive metabolic panel Metabolic Panel, Comprehensive (41223) [facility] Work Phone: Start: 06-04-2019 Comprehensive metabolic panel METABOLIC PANEL, COMPREHENSIVE (06748) [facility] Work Phone: Start: 06-04-2019 25 hydroxy includes fractions if performed CALCIFEDIOL (43166) [facility] Work Phone: Start: 05-26-2019 Comprehensive metabolic panel METABOLIC PANEL, COMPREHENSIVE (55671) [facility] Work Phone: Start: 03-26-2019 Lipid panel LIPID PANEL (18118) [facility] Work Phone: Start: 03-26-2019 25 hydroxy includes fractions if performed CALCIFEDIOL (85518) [facility] Work Phone: Start: 03-26-2019 Comprehensive metabolic panel Metabolic Panel, Comprehensive (44509) [facility] Work Phone: Start: 03-24-2019 Assay of parathormone PARATHORMONE (01886) [facility] Work Phone: Start: 02-05-2019 Procedure Education Eprescribed prescriptions (G8553) [facility] Work Phone: Start: 02-05-2019 Provider Instructions for Treatment Reviewed Lab [facility] Work Phone: Start: 05-22-2018 Lipid panel LIPID PANEL (95862) [facility] Work Phone: Start: 02-19-2018 Procedure Education Eprescribed prescriptions (G8553) [facility] Work Phone: Start: 02-19-2018 Provider Instructions for Treatment Follow up in 3 months [facility] Work Phone: Start: 02-19-2018 Lipid panel LIPID PANEL (57851) [facility] Work Phone: Immunizations Immunization Date Immunization Notes Care Provider [facility] 11-10-2019 zoster vaccine, live Silvana Sutherland [facility] Work Phone: Payers Date Payer Category Payer Unknown [id number] 2019 Unknown [id number] 2006 Unknown [id number] 1960 Unknown [id number] 1960 Unknown [id number] Unknown Social History Date Type Detail Facility Caffeine Use Never smoker [facility] Work Phone: Clinical Notes 03-08-2023 to 04-11-2023 Note Date & Type Note Facility [facility]; [facility] Work Phone: [phone]) 362-113407-27-2023 Instructions* Name Dates Details Follow up in 4-6 months Indication:Hypertension Start:28-Feb-2023 Instruction Type:Provider Instructions for Treatment Patient Instructions Indication:Hypertension Start:28-Feb-2023 Instruction Type:Provider Instructions for Treatment How to Access Health Informa tion Online using Patient Portal and 3rd [employer] Apps Indication:Hypertension Start:28-Feb-2023 Instruction Type:Patient Education Patient Instructions Indication:Nonsmoker Start:23-Aug-2022 Instruction Type:Provider Instructions for Treatment How to Access Health Informa tion Online using Patient Portal and [employer]rd [employer] Apps Indication:Nonsmoker Start:23-Aug-2022 Instruction Type:Patient Education Patient Instructions Indication:BMI 21.0-21.9, adult Start:16-Sep-2021 Instruction Type:Provider Instructions for Treatment How to Access Health Informa tion Online using Patient Portal and 3rd [employer] Apps Indication:BMI 21.0-21.9, adult Start:16-Sep-2021 Instruction Type:Patient Education Patient Instructions Indication:Hypercholesteremia (Renamed from Hypercholesterolemia) Start:07-Nov-2019 Instruction Type:Provider Instructions for Treatment How to access health informa tion online Indication:BMI 21.0-21.9, adult Start:05-Feb-2019 Instruction Type:Patient Education How to access health informa tion online - Detail Indication:BMI 21.0-21.9, adult Start:05-Feb-2019 Instruction Type:Patient Education Patient Instructions Indication:Hypercalcemia Start:05-Feb-2019 Instruction Type:Provider Instructions for Treatment How to access health informa tion online - Detail Indication:BMI 21.0-21.9, adult Start:19-Feb-2018 Instruction Type:Patient Education How to access health informa tion online Indication:BMI 21.0-21.9, adult Start:19-Feb-2018 Instruction Type:Patient Education Patient Instructions Indication:BMI 21.0-21.9, adult Start:19-Feb-2018 Instruction Type:Provider Instructions for Treatment How to access health informa tion online Indication:BMI 21.0-21.9, adult Start:28-Aug-2017 Instruction Type:Patient Education How to access health informa tion online - Detail Indication:BMI 21.0-21.9, adult Start:28-Aug-2017 Instruction Type:Patient Education Patient Instructions Indication:BMI 21.0-21.9, adult Start:28-Aug-2017 Instruction Type:Provider Instructions for Treatment Patient Instructions Indication:Abnormal hemoglobin Start:20-Feb-2017 Instruction Type:Provider Instructions for Treatment How to access health informa tion online Indication:Hypertension, benign Start:20-Feb-2017 Instruction Type:Patient Education How to access health informa tion online - Detail Indication:Hypertension, benign Start:20-Feb-2017 Instruction Type:Patient Education Patient Instructions Indication:Hypertension, benign Start:20-Feb-2017 Instruction Type:Provider Instructions for Treatment How to access health informa tion online Indication:Hypertension, benign Start:03-Oct-2016 Instruction Type:Patient Education How to access health informa tion online - Detail Indication:Hypertension, benign Start:03-Oct-2016 Instruction Type:Patient Education Patient Instructions Indication:Hypertension, benign Start:03-Oct-2016 Instruction Type:Provider Instructions for Treatment How to access health informa tion online Indication:Encounter for pre-employment examination Start:22-Apr-2015 Instruction Type:Patient Education How to access health informa tion online - Detail Indication:Encounter for pre-employment examination Start:22-Apr-2015 Instruction Type:Patient Education Patient Instructions Indication:Encounter for pre-employment examination Start:22-Apr-2015 Instruction Type:Provider Instructions for Treatment How to access health informa tion online - Detail Indication:Physical exam, routine Start:05-Mar-2014 Instruction Type:Patient Education Patient Instructions Indication:Hypertension, benign Start:18-Mar-2013 Instruction Type:Provider Instructions for Treatment Patient Instructions Indication:Bite, insect Start:02-Jan-2013 Instruction Type:Provider Instructions for Treatment Patient Instructions Indication:WWV V73.21 Start:02-May-2012 Instruction Type:Provider Instructions for Treatment [facility]; [facility] Work Phone: Instructions* Name Dates Details Patient Instructions Indication:Hypercholesteremia (Renamed from Hypercholesterolemia) Start:07-Nov-2019 Instruction Type:Provider Instructions for Treatment How to access health informa tion online Indication:BMI 21.0-21.9, adult Start:05-Feb-2019 Instruction Type:Patient Education How to access health informa tion online - Detail Indication:BMI 21.0-21.9, adult Start:05-Feb-2019 Instruction Type:Patient Education Patient Instructions Indication:Hypercalcemia Start:05-Feb-2019 Instruction Type:Provider Instructions for Treatment How to access health informa tion online - Detail Indication:BMI 21.0-21.9, adult Start:19-Feb-2018 Instruction Type:Patient Education How to access health informa tion online Indication:BMI 21.0-21.9, adult Start:19-Feb-2018 Instruction Type:Patient Education Patient Instructions Indication:BMI 21.0-21.9, adult Start:19-Feb-2018 Instruction Type:Provider Instructions for Treatment How to access health informa tion online Indication:BMI 21.0-21.9, adult Start:28-Aug-2017 Instruction Type:Patient Education How to access health informa tion online - Detail Indication:BMI 21.0-21.9, adult Start:28-Aug-2017 Instruction Type:Patient Education Patient Instructions Indication:BMI 21.0-21.9, adult Start:28-Aug-2017 Instruction Type:Provider Instructions for Treatment Patient Instructions Indication:Abnormal hemoglobin Start:20-Feb-2017 Instruction Type:Provider Instructions for Treatment How to access health informa tion online Indication:Hypertension, benign Start:20-Feb-2017 Instruction Type:Patient Education How to access health informa tion online - Detail Indication:Hypertension, benign Start:20-Feb-2017 Instruction Type:Patient Education Patient Instructions Indication:Hypertension, benign Start:20-Feb-2017 Instruction Type:Provider Instructions for Treatment How to access health informa tion online Indication:Hypertension, benign Start:03-Oct-2016 Instruction Type:Patient Education How to access health informa tion online - Detail Indication:Hypertension, benign Start:03-Oct-2016 Instruction Type:Patient Education Patient Instructions Indication:Hypertension, benign Start:03-Oct-2016 Instruction Type:Provider Instructions for Treatment How to access health informa tion online Indication:Encounter for pre-employment examination Start:22-Apr-2015 Instruction Type:Patient Education How to access health informa tion online - Detail Indication:Encounter for pre-employment examination Start:22-Apr-2015 Instruction Type:Patient Education Patient Instructions Indication:Encounter for pre-employment examination Start:22-Apr-2015 Instruction Type:Provider Instructions for Treatment How to access health informa tion online - Detail Indication:Physical exam, routine Start:05-Mar-2014 Instruction Type:Patient Education Patient Instructions Indication:Hypertension, benign Start:18-Mar-2013 Instruction Type:Provider Instructions for Treatment Patient Instructions Indication:Bite, insect Start:02-Jan-2013 Instruction Type:Provider Instructions for Treatment Patient Instructions Indication:WWV V73.21 Start:02-May-2012 Instruction Type:Provider Instructions for Treatment [facility] Work Phone: Instructions* Name Dates Details Patient Instructions Indication:Hypercholesteremia (Renamed from Hypercholesterolemia) Start:07-Nov-2019 Instruction Type:Provider Instructions for Treatment How to access health informa tion online Indication:BMI 21.0-21.9, adult Start:05-Feb-2019 Instruction Type:Patient Education How to access health informa tion online - Detail Indication:BMI 21.0-21.9, adult Start:05-Feb-2019 Instruction Type:Patient Education Patient Instructions Indication:Hypercalcemia Start:05-Feb-2019 Instruction Type:Provider Instructions for Treatment How to access health informa tion online - Detail Indication:BMI 21.0-21.9, adult Start:19-Feb-2018 Instruction Type:Patient Education How to access health informa tion online Indication:BMI 21.0-21.9, adult Start:19-Feb-2018 Instruction Type:Patient Education Patient Instructions Indication:BMI 21.0-21.9, adult Start:19-Feb-2018 Instruction Type:Provider Instructions for Treatment How to access health informa tion online Indication:BMI 21.0-21.9, adult Start:28-Aug-2017 Instruction Type:Patient Education How to access health informa tion online - Detail Indication:BMI 21.0-21.9, adult Start:28-Aug-2017 Instruction Type:Patient Education Patient Instructions Indication:BMI 21.0-21.9, adult Start:28-Aug-2017 Instruction Type:Provider Instructions for Treatment Patient Instructions Indication:Abnormal hemoglobin Start:20-Feb-2017 Instruction Type:Provider Instructions for Treatment How to access health informa tion online Indication:Hypertension, benign Start:20-Feb-2017 Instruction Type:Patient Education How to access health informa tion online - Detail Indication:Hypertension, benign Start:20-Feb-2017 Instruction Type:Patient Education Patient Instructions Indication:Hypertension, benign Start:20-Feb-2017 Instruction Type:Provider Instructions for Treatment How to access health informa tion online Indication:Hypertension, benign Start:03-Oct-2016 Instruction Type:Patient Education How to access health informa tion online - Detail Indication:Hypertension, benign Start:03-Oct-2016 Instruction Type:Patient Education Patient Instructions Indication:Hypertension, benign Start:03-Oct-2016 Instruction Type:Provider Instructions for Treatment How to access health informa tion online Indication:Encounter for pre-employment examination Start:22-Apr-2015 Instruction Type:Patient Education How to access health informa tion online - Detail Indication:Encounter for pre-employment examination Start:22-Apr-2015 Instruction Type:Patient Education Patient Instructions Indication:Encounter for pre-employment examination Start:22-Apr-2015 Instruction Type:Provider Instructions for Treatment How to access health informa tion online - Detail Indication:Physical exam, routine Start:05-Mar-2014 Instruction Type:Patient Education Patient Instructions Indication:Hypertension, benign Start:18-Mar-2013 Instruction Type:Provider Instructions for Treatment Patient Instructions Indication:Bite, insect Start:02-Jan-2013 Instruction Type:Provider Instructions for Treatment Patient Instructions Indication:WWV V73.21 Start:02-May-2012 Instruction Type:Provider Instructions for Treatment [facility] Work Phone: Instructions* Name Dates Details Patient Instructions Indication:Hypercholesteremia (Renamed from Hypercholesterolemia) Start:07-Nov-2019 Instruction Type:Provider Instructions for Treatment How to access health informa tion online Indication:BMI 21.0-21.9, adult Start:05-Feb-2019 Instruction Type:Patient Education How to access health informa tion online - Detail Indication:BMI 21.0-21.9, adult Start:05-Feb-2019 Instruction Type:Patient Education Patient Instructions Indication:Hypercalcemia Start:05-Feb-2019 Instruction Type:Provider Instructions for Treatment How to access health informa tion online - Detail Indication:BMI 21.0-21.9, adult Start:19-Feb-2018 Instruction Type:Patient Education How to access health informa tion online Indication:BMI 21.0-21.9, adult Start:19-Feb-2018 Instruction Type:Patient Education Patient Instructions Indication:BMI 21.0-21.9, adult Start:19-Feb-2018 Instruction Type:Provider Instructions for Treatment How to access health informa tion online Indication:BMI 21.0-21.9, adult Start:28-Aug-2017 Instruction Type:Patient Education How to access health informa tion online - Detail Indication:BMI 21.0-21.9, adult Start:28-Aug-2017 Instruction Type:Patient Education Patient Instructions Indication:BMI 21.0-21.9, adult Start:28-Aug-2017 Instruction Type:Provider Instructions for Treatment Patient Instructions Indication:Abnormal hemoglobin Start:20-Feb-2017 Instruction Type:Provider Instructions for Treatment How to access health informa tion online Indication:Hypertension, benign Start:20-Feb-2017 Instruction Type:Patient Education How to access health informa tion online - Detail Indication:Hypertension, benign Start:20-Feb-2017 Instruction Type:Patient Education Patient Instructions Indication:Hypertension, benign Start:20-Feb-2017 Instruction Type:Provider Instructions for Treatment How to access health informa tion online Indication:Hypertension, benign Start:03-Oct-2016 Instruction Type:Patient Education How to access health informa tion online - Detail Indication:Hypertension, benign Start:03-Oct-2016 Instruction Type:Patient Education Patient Instructions Indication:Hypertension, benign Start:03-Oct-2016 Instruction Type:Provider Instructions for Treatment How to access health informa tion online Indication:Encounter for pre-employment examination Start:22-Apr-2015 Instruction Type:Patient Education How to access health informa tion online - Detail Indication:Encounter for pre-employment examination Start:22-Apr-2015 Instruction Type:Patient Education Patient Instructions Indication:Encounter for pre-employment examination Start:22-Apr-2015 Instruction Type:Provider Instructions for Treatment How to access health informa tion online - Detail Indication:Physical exam, routine Start:05-Mar-2014 Instruction Type:Patient Education Patient Instructions Indication:Hypertension, benign Start:18-Mar-2013 Instruction Type:Provider Instructions for Treatment Patient Instructions Indication:Bite, insect Start:02-Jan-2013 Instruction Type:Provider Instructions for Treatment Patient Instructions Indication:WWV V73.21 Start:02-May-2012 Instruction Type:Provider Instructions for Treatment [facility]; [facility] Work Phone: Instructions* Name Dates Details Patient Instructions Indication:BMI 21.0-21.9, adult Start:16-Sep-2021 Instruction Type:Provider Instructions for Treatment How to Access Health Informa tion Online using Patient Portal and [employer]rd [employer] Apps Indication:BMI 21.0-21.9, adult Start:16-Sep-2021 Instruction Type:Patient Education Patient Instructions Indication:Hypercholesteremia (Renamed from Hypercholesterolemia) Start:07-Nov-2019 Instruction Type:Provider Instructions for Treatment How to access health informa tion online Indication:BMI 21.0-21.9, adult Start:05-Feb-2019 Instruction Type:Patient Education How to access health informa tion online - Detail Indication:BMI 21.0-21.9, adult Start:05-Feb-2019 Instruction Type:Patient Education Patient Instructions Indication:Hypercalcemia Start:05-Feb-2019 Instruction Type:Provider Instructions for Treatment How to access health informa tion online - Detail Indication:BMI 21.0-21.9, adult Start:19-Feb-2018 Instruction Type:Patient Education How to access health informa tion online Indication:BMI 21.0-21.9, adult Start:19-Feb-2018 Instruction Type:Patient Education Patient Instructions Indication:BMI 21.0-21.9, adult Start:19-Feb-2018 Instruction Type:Provider Instructions for Treatment How to access health informa tion online Indication:BMI 21.0-21.9, adult Start:28-Aug-2017 Instruction Type:Patient Education How to access health informa tion online - Detail Indication:BMI 21.0-21.9, adult Start:28-Aug-2017 Instruction Type:Patient Education Patient Instructions Indication:BMI 21.0-21.9, adult Start:28-Aug-2017 Instruction Type:Provider Instructions for Treatment Patient Instructions Indication:Abnormal hemoglobin Start:20-Feb-2017 Instruction Type:Provider Instructions for Treatment How to access health informa tion online Indication:Hypertension, benign Start:20-Feb-2017 Instruction Type:Patient Education How to access health informa tion online - Detail Indication:Hypertension, benign Start:20-Feb-2017 Instruction Type:Patient Education Patient Instructions Indication:Hypertension, benign Start:20-Feb-2017 Instruction Type:Provider Instructions for Treatment How to access health informa tion online Indication:Hypertension, benign Start:03-Oct-2016 Instruction Type:Patient Education How to access health informa tion online - Detail Indication:Hypertension, benign Start:03-Oct-2016 Instruction Type:Patient Education Patient Instructions Indication:Hypertension, benign Start:03-Oct-2016 Instruction Type:Provider Instructions for Treatment How to access health informa tion online Indication:Encounter for pre-employment examination Start:22-Apr-2015 Instruction Type:Patient Education How to access health informa tion online - Detail Indication:Encounter for pre-employment examination Start:22-Apr-2015 Instruction Type:Patient Education Patient Instructions Indication:Encounter for pre-employment examination Start:22-Apr-2015 Instruction Type:Provider Instructions for Treatment How to access health informa tion online - Detail Indication:Physical exam, routine Start:05-Mar-2014 Instruction Type:Patient Education Patient Instructions Indication:Hypertension, benign Start:18-Mar-2013 Instruction Type:Provider Instructions for Treatment Patient Instructions Indication:Bite, insect Start:02-Jan-2013 Instruction Type:Provider Instructions for Treatment Patient Instructions Indication:WWV V73.21 Start:02-May-2012 Instruction Type:Provider Instructions for Treatment [facility]; [facility] Work Phone: Instructions* Name Dates Details Patient Instructions Indication:BMI 21.0-21.9, adult Start:16-Sep-2021 Instruction Type:Provider Instructions for Treatment How to Access Health Informa tion Online using Patient Portal and [employer]rd [employer] Apps Indication:BMI 21.0-21.9, adult Start:16-Sep-2021 Instruction Type:Patient Education Patient Instructions Indication:Hypercholesteremia (Renamed from Hypercholesterolemia) Start:07-Nov-2019 Instruction Type:Provider Instructions for Treatment How to access health informa tion online Indication:BMI 21.0-21.9, adult Start:05-Feb-2019 Instruction Type:Patient Education How to access health informa tion online - Detail Indication:BMI 21.0-21.9, adult Start:05-Feb-2019 Instruction Type:Patient Education Patient Instructions Indication:Hypercalcemia Start:05-Feb-2019 Instruction Type:Provider Instructions for Treatment How to access health informa tion online - Detail Indication:BMI 21.0-21.9, adult Start:19-Feb-2018 Instruction Type:Patient Education How to access health informa tion online Indication:BMI 21.0-21.9, adult Start:19-Feb-2018 Instruction Type:Patient Education Patient Instructions Indication:BMI 21.0-21.9, adult Start:19-Feb-2018 Instruction Type:Provider Instructions for Treatment How to access health informa tion online Indication:BMI 21.0-21.9, adult Start:28-Aug-2017 Instruction Type:Patient Education How to access health informa tion online - Detail Indication:BMI 21.0-21.9, adult Start:28-Aug-2017 Instruction Type:Patient Education Patient Instructions Indication:BMI 21.0-21.9, adult Start:28-Aug-2017 Instruction Type:Provider Instructions for Treatment Patient Instructions Indication:Abnormal hemoglobin Start:20-Feb-2017 Instruction Type:Provider Instructions for Treatment How to access health informa tion online Indication:Hypertension, benign Start:20-Feb-2017 Instruction Type:Patient Education How to access health informa tion online - Detail Indication:Hypertension, benign Start:20-Feb-2017 Instruction Type:Patient Education Patient Instructions Indication:Hypertension, benign Start:20-Feb-2017 Instruction Type:Provider Instructions for Treatment How to access health informa tion online Indication:Hypertension, benign Start:03-Oct-2016 Instruction Type:Patient Education How to access health informa tion online - Detail Indication:Hypertension, benign Start:03-Oct-2016 Instruction Type:Patient Education Patient Instructions Indication:Hypertension, benign Start:03-Oct-2016 Instruction Type:Provider Instructions for Treatment How to access health informa tion online Indication:Encounter for pre-employment examination Start:22-Apr-2015 Instruction Type:Patient Education How to access health informa tion online - Detail Indication:Encounter for pre-employment examination Start:22-Apr-2015 Instruction Type:Patient Education Patient Instructions Indication:Encounter for pre-employment examination Start:22-Apr-2015 Instruction Type:Provider Instructions for Treatment How to access health informa tion online - Detail Indication:Physical exam, routine Start:05-Mar-2014 Instruction Type:Patient Education Patient Instructions Indication:Hypertension, benign Start:18-Mar-2013 Instruction Type:Provider Instructions for Treatment Patient Instructions Indication:Bite, insect Start:02-Jan-2013 Instruction Type:Provider Instructions for Treatment Patient Instructions Indication:WWV V73.21 Start:02-May-2012 Instruction Type:Provider Instructions for Treatment [facility]; [facility] Work Phone: Instructions* Name Dates Details Patient Instructions Indication:BMI 21.0-21.9, adult Start:16-Sep-2021 Instruction Type:Provider Instructions for Treatment How to Access Health Informa tion Online using Patient Portal and [employer]rd [employer] Apps Indication:BMI 21.0-21.9, adult Start:16-Sep-2021 Instruction Type:Patient Education Patient Instructions Indication:Hypercholesteremia (Renamed from Hypercholesterolemia) Start:07-Nov-2019 Instruction Type:Provider Instructions for Treatment How to access health informa tion online Indication:BMI 21.0-21.9, adult Start:05-Feb-2019 Instruction Type:Patient Education How to access health informa tion online - Detail Indication:BMI 21.0-21.9, adult Start:05-Feb-2019 Instruction Type:Patient Education Patient Instructions Indication:Hypercalcemia Start:05-Feb-2019 Instruction Type:Provider Instructions for Treatment How to access health informa tion online - Detail Indication:BMI 21.0-21.9, adult Start:19-Feb-2018 Instruction Type:Patient Education How to access health informa tion online Indication:BMI 21.0-21.9, adult Start:19-Feb-2018 Instruction Type:Patient Education Patient Instructions Indication:BMI 21.0-21.9, adult Start:19-Feb-2018 Instruction Type:Provider Instructions for Treatment How to access health informa tion online Indication:BMI 21.0-21.9, adult Start:28-Aug-2017 Instruction Type:Patient Education How to access health informa tion online - Detail Indication:BMI 21.0-21.9, adult Start:28-Aug-2017 Instruction Type:Patient Education Patient Instructions Indication:BMI 21.0-21.9, adult Start:28-Aug-2017 Instruction Type:Provider Instructions for Treatment Patient Instructions Indication:Abnormal hemoglobin Start:20-Feb-2017 Instruction Type:Provider Instructions for Treatment How to access health informa tion online Indication:Hypertension, benign Start:20-Feb-2017 Instruction Type:Patient Education How to access health informa tion online - Detail Indication:Hypertension, benign Start:20-Feb-2017 Instruction Type:Patient Education Patient Instructions Indication:Hypertension, benign Start:20-Feb-2017 Instruction Type:Provider Instructions for Treatment How to access health informa tion online Indication:Hypertension, benign Start:03-Oct-2016 Instruction Type:Patient Education How to access health informa tion online - Detail Indication:Hypertension, benign Start:03-Oct-2016 Instruction Type:Patient Education Patient Instructions Indication:Hypertension, benign Start:03-Oct-2016 Instruction Type:Provider Instructions for Treatment How to access health informa tion online Indication:Encounter for pre-employment examination Start:22-Apr-2015 Instruction Type:Patient Education How to access health informa tion online - Detail Indication:Encounter for pre-employment examination Start:22-Apr-2015 Instruction Type:Patient Education Patient Instructions Indication:Encounter for pre-employment examination Start:22-Apr-2015 Instruction Type:Provider Instructions for Treatment How to access health informa tion online - Detail Indication:Physical exam, routine Start:05-Mar-2014 Instruction Type:Patient Education Patient Instructions Indication:Hypertension, benign Start:18-Mar-2013 Instruction Type:Provider Instructions for Treatment Patient Instructions Indication:Bite, insect Start:02-Jan-2013 Instruction Type:Provider Instructions for Treatment Patient Instructions Indication:WWV V73.21 Start:02-May-2012 Instruction Type:Provider Instructions for Treatment [facility]; [facility] Work Phone: Instructions* Name Dates Details Patient Instructions Indication:BMI 21.0-21.9, adult Start:16-Sep-2021 Instruction Type:Provider Instructions for Treatment How to Access Health Informa tion Online using Patient Portal and [employer]rd [employer] Apps Indication:BMI 21.0-21.9, adult Start:16-Sep-2021 Instruction Type:Patient Education Patient Instructions Indication:Hypercholesteremia (Renamed from Hypercholesterolemia) Start:07-Nov-2019 Instruction Type:Provider Instructions for Treatment How to access health informa tion online Indication:BMI 21.0-21.9, adult Start:05-Feb-2019 Instruction Type:Patient Education How to access health informa tion online - Detail Indication:BMI 21.0-21.9, adult Start:05-Feb-2019 Instruction Type:Patient Education Patient Instructions Indication:Hypercalcemia Start:05-Feb-2019 Instruction Type:Provider Instructions for Treatment How to access health informa tion online - Detail Indication:BMI 21.0-21.9, adult Start:19-Feb-2018 Instruction Type:Patient Education How to access health informa tion online Indication:BMI 21.0-21.9, adult Start:19-Feb-2018 Instruction Type:Patient Education Patient Instructions Indication:BMI 21.0-21.9, adult Start:19-Feb-2018 Instruction Type:Provider Instructions for Treatment How to access health informa tion online Indication:BMI 21.0-21.9, adult Start:28-Aug-2017 Instruction Type:Patient Education How to access health informa tion online - Detail Indication:BMI 21.0-21.9, adult Start:28-Aug-2017 Instruction Type:Patient Education Patient Instructions Indication:BMI 21.0-21.9, adult Start:28-Aug-2017 Instruction Type:Provider Instructions for Treatment Patient Instructions Indication:Abnormal hemoglobin Start:20-Feb-2017 Instruction Type:Provider Instructions for Treatment How to access health informa tion online Indication:Hypertension, benign Start:20-Feb-2017 Instruction Type:Patient Education How to access health informa tion online - Detail Indication:Hypertension, benign Start:20-Feb-2017 Instruction Type:Patient Education Patient Instructions Indication:Hypertension, benign Start:20-Feb-2017 Instruction Type:Provider Instructions for Treatment How to access health informa tion online Indication:Hypertension, benign Start:03-Oct-2016 Instruction Type:Patient Education How to access health informa tion online - Detail Indication:Hypertension, benign Start:03-Oct-2016 Instruction Type:Patient Education Patient Instructions Indication:Hypertension, benign Start:03-Oct-2016 Instruction Type:Provider Instructions for Treatment How to access health informa tion online Indication:Encounter for pre-employment examination Start:22-Apr-2015 Instruction Type:Patient Education How to access health informa tion online - Detail Indication:Encounter for pre-employment examination Start:22-Apr-2015 Instruction Type:Patient Education Patient Instructions Indication:Encounter for pre-employment examination Start:22-Apr-2015 Instruction Type:Provider Instructions for Treatment How to access health informa tion online - Detail Indication:Physical exam, routine Start:05-Mar-2014 Instruction Type:Patient Education Patient Instructions Indication:Hypertension, benign Start:18-Mar-2013 Instruction Type:Provider Instructions for Treatment Patient Instructions Indication:Bite, insect Start:02-Jan-2013 Instruction Type:Provider Instructions for Treatment Patient Instructions Indication:WWV V73.21 Start:02-May-2012 Instruction Type:Provider Instructions for Treatment [facility]; [facility] Work Phone: Instructions* Name Dates Details Patient Instructions Indication:BMI 21.0-21.9, adult Start:16-Sep-2021 Instruction Type:Provider Instructions for Treatment How to Access Health Informa tion Online using Patient Portal and [employer] Apps Indication:BMI 21.0-21.9, adult Start:16-Sep-2021 Instruction Type:Patient Education Patient Instructions Indication:Hypercholesteremia (Renamed from Hypercholesterolemia) Start:07-Nov-2019 Instruction Type:Provider Instructions for Treatment How to access health informa tion online Indication:BMI 21.0-21.9, adult Start:05-Feb-2019 Instruction Type:Patient Education How to access health informa tion online - Detail Indication:BMI 21.0-21.9, adult Start:05-Feb-2019 Instruction Type:Patient Education Patient Instructions Indication:Hypercalcemia Start:05-Feb-2019 Instruction Type:Provider Instructions for Treatment How to access health informa tion online - Detail Indication:BMI 21.0-21.9, adult Start:19-Feb-2018 Instruction Type:Patient Education How to access health informa tion online Indication:BMI 21.0-21.9, adult Start:19-Feb-2018 Instruction Type:Patient Education Patient Instructions Indication:BMI 21.0-21.9, adult Start:19-Feb-2018 Instruction Type:Provider Instructions for Treatment How to access health informa tion online Indication:BMI 21.0-21.9, adult Start:28-Aug-2017 Instruction Type:Patient Education How to access health informa tion online - Detail Indication:BMI 21.0-21.9, adult Start:28-Aug-2017 Instruction Type:Patient Education Patient Instructions Indication:BMI 21.0-21.9, adult Start:28-Aug-2017 Instruction Type:Provider Instructions for Treatment Patient Instructions Indication:Abnormal hemoglobin Start:20-Feb-2017 Instruction Type:Provider Instructions for Treatment How to access health informa tion online Indication:Hypertension, benign Start:20-Feb-2017 Instruction Type:Patient Education How to access health informa tion online - Detail Indication:Hypertension, benign Start:20-Feb-2017 Instruction Type:Patient Education Patient Instructions Indication:Hypertension, benign Start:20-Feb-2017 Instruction Type:Provider Instructions for Treatment How to access health informa tion online Indication:Hypertension, benign Start:03-Oct-2016 Instruction Type:Patient Education How to access health informa tion online - Detail Indication:Hypertension, benign Start:03-Oct-2016 Instruction Type:Patient Education Patient Instructions Indication:Hypertension, benign Start:03-Oct-2016 Instruction Type:Provider Instructions for Treatment How to access health informa tion online Indication:Encounter for pre-employment examination Start:22-Apr-2015 Instruction Type:Patient Education How to access health informa tion online - Detail Indication:Encounter for pre-employment examination Start:22-Apr-2015 Instruction Type:Patient Education Patient Instructions Indication:Encounter for pre-employment examination Start:22-Apr-2015 Instruction Type:Provider Instructions for Treatment How to access health informa tion online - Detail Indication:Physical exam, routine Start:05-Mar-2014 Instruction Type:Patient Education Patient Instructions Indication:Hypertension, benign Start:18-Mar-2013 Instruction Type:Provider Instructions for Treatment Patient Instructions Indication:Bite, insect Start:02-Jan-2013 Instruction Type:Provider Instructions for Treatment Patient Instructions Indication:WWV V73.21 Start:02-May-2012 Instruction Type:Provider Instructions for Treatment [facility]; [facility] Work Phone: Instructions* Name Dates Details Patient Instructions Indication:BMI 21.0-21.9, adult Start:16-Sep-2021 Instruction Type:Provider Instructions for Treatment How to Access Health Informa tion Online using Patient Portal and [employer]rd [employer] Apps Indication:BMI 21.0-21.9, adult Start:16-Sep-2021 Instruction Type:Patient Education Patient Instructions Indication:Hypercholesteremia (Renamed from Hypercholesterolemia) Start:07-Nov-2019 Instruction Type:Provider Instructions for Treatment How to access health informa tion online Indication:BMI 21.0-21.9, adult Start:05-Feb-2019 Instruction Type:Patient Education How to access health informa tion online - Detail Indication:BMI 21.0-21.9, adult Start:05-Feb-2019 Instruction Type:Patient Education Patient Instructions Indication:Hypercalcemia Start:05-Feb-2019 Instruction Type:Provider Instructions for Treatment How to access health informa tion online - Detail Indication:BMI 21.0-21.9, adult Start:19-Feb-2018 Instruction Type:Patient Education How to access health informa tion online Indication:BMI 21.0-21.9, adult Start:19-Feb-2018 Instruction Type:Patient Education Patient Instructions Indication:BMI 21.0-21.9, adult Start:19-Feb-2018 Instruction Type:Provider Instructions for Treatment How to access health informa tion online Indication:BMI 21.0-21.9, adult Start:28-Aug-2017 Instruction Type:Patient Education How to access health informa tion online - Detail Indication:BMI 21.0-21.9, adult Start:28-Aug-2017 Instruction Type:Patient Education Patient Instructions Indication:BMI 21.0-21.9, adult Start:28-Aug-2017 Instruction Type:Provider Instructions for Treatment Patient Instructions Indication:Abnormal hemoglobin Start:20-Feb-2017 Instruction Type:Provider Instructions for Treatment How to access health informa tion online Indication:Hypertension, benign Start:20-Feb-2017 Instruction Type:Patient Education How to access health informa tion online - Detail Indication:Hypertension, benign Start:20-Feb-2017 Instruction Type:Patient Education Patient Instructions Indication:Hypertension, benign Start:20-Feb-2017 Instruction Type:Provider Instructions for Treatment How to access health informa tion online Indication:Hypertension, benign Start:03-Oct-2016 Instruction Type:Patient Education How to access health informa tion online - Detail Indication:Hypertension, benign Start:03-Oct-2016 Instruction Type:Patient Education Patient Instructions Indication:Hypertension, benign Start:03-Oct-2016 Instruction Type:Provider Instructions for Treatment How to access health informa tion online Indication:Encounter for pre-employment examination Start:22-Apr-2015 Instruction Type:Patient Education How to access health informa tion online - Detail Indication:Encounter for pre-employment examination Start:22-Apr-2015 Instruction Type:Patient Education Patient Instructions Indication:Encounter for pre-employment examination Start:22-Apr-2015 Instruction Type:Provider Instructions for Treatment How to access health informa tion online - Detail Indication:Physical exam, routine Start:05-Mar-2014 Instruction Type:Patient Education Patient Instructions Indication:Hypertension, benign Start:18-Mar-2013 Instruction Type:Provider Instructions for Treatment Patient Instructions Indication:Bite, insect Start:02-Jan-2013 Instruction Type:Provider Instructions for Treatment Patient Instructions Indication:WWV V73.21 Start:02-May-2012 Instruction Type:Provider Instructions for Treatment [facility]; [facility] Work Phone: Instructions* Name Dates Details Patient Instructions Indication:Nonsmoker Start:23-Aug-2022 Instruction Type:Provider Instructions for Treatment How to Access Health Informa tion Online using Patient Portal and [employer]rd [employer] Apps Indication:Nonsmoker Start:23-Aug-2022 Instruction Type:Patient Education Patient Instructions Indication:BMI 21.0-21.9, adult Start:16-Sep-2021 Instruction Type:Provider Instructions for Treatment How to Access Health Informa tion Online using Patient Portal and [employer] Apps Indication:BMI 21.0-21.9, adult Start:16-Sep-2021 Instruction Type:Patient Education Patient Instructions Indication:Hypercholesteremia (Renamed from Hypercholesterolemia) Start:07-Nov-2019 Instruction Type:Provider Instructions for Treatment How to access health informa tion online Indication:BMI 21.0-21.9, adult Start:05-Feb-2019 Instruction Type:Patient Education How to access health informa tion online - Detail Indication:BMI 21.0-21.9, adult Start:05-Feb-2019 Instruction Type:Patient Education Patient Instructions Indication:Hypercalcemia Start:05-Feb-2019 Instruction Type:Provider Instructions for Treatment How to access health informa tion online - Detail Indication:BMI 21.0-21.9, adult Start:19-Feb-2018 Instruction Type:Patient Education How to access health informa tion online Indication:BMI 21.0-21.9, adult Start:19-Feb-2018 Instruction Type:Patient Education Patient Instructions Indication:BMI 21.0-21.9, adult Start:19-Feb-2018 Instruction Type:Provider Instructions for Treatment How to access health informa tion online Indication:BMI 21.0-21.9, adult Start:28-Aug-2017 Instruction Type:Patient Education How to access health informa tion online - Detail Indication:BMI 21.0-21.9, adult Start:28-Aug-2017 Instruction Type:Patient Education Patient Instructions Indication:BMI 21.0-21.9, adult Start:28-Aug-2017 Instruction Type:Provider Instructions for Treatment Patient Instructions Indication:Abnormal hemoglobin Start:20-Feb-2017 Instruction Type:Provider Instructions for Treatment How to access health informa tion online Indication:Hypertension, benign Start:20-Feb-2017 Instruction Type:Patient Education How to access health informa tion online - Detail Indication:Hypertension, benign Start:20-Feb-2017 Instruction Type:Patient Education Patient Instructions Indication:Hypertension, benign Start:20-Feb-2017 Instruction Type:Provider Instructions for Treatment How to access health informa tion online Indication:Hypertension, benign Start:03-Oct-2016 Instruction Type:Patient Education How to access health informa tion online - Detail Indication:Hypertension, benign Start:03-Oct-2016 Instruction Type:Patient Education Patient Instructions Indication:Hypertension, benign Start:03-Oct-2016 Instruction Type:Provider Instructions for Treatment How to access health informa tion online Indication:Encounter for pre-employment examination Start:22-Apr-2015 Instruction Type:Patient Education How to access health informa tion online - Detail Indication:Encounter for pre-employment examination Start:22-Apr-2015 Instruction Type:Patient Education Patient Instructions Indication:Encounter for pre-employment examination Start:22-Apr-2015 Instruction Type:Provider Instructions for Treatment How to access health informa tion online - Detail Indication:Physical exam, routine Start:05-Mar-2014 Instruction Type:Patient Education Patient Instructions Indication:Hypertension, benign Start:18-Mar-2013 Instruction Type:Provider Instructions for Treatment Patient Instructions Indication:Bite, insect Start:02-Jan-2013 Instruction Type:Provider Instructions for Treatment Patient Instructions Indication:WWV V73.21 Start:02-May-2012 Instruction Type:Provider Instructions for Treatment [facility]; [facility] Work Phone: Instructions* Name Dates Details Patient Instructions Indication:Nonsmoker Start:23-Aug-2022 Instruction Type:Provider Instructions for Treatment How to Access Health Informa tion Online using Patient Portal and [employer]rd [employer] Apps Indication:Nonsmoker Start:23-Aug-2022 Instruction Type:Patient Education Patient Instructions Indication:BMI 21.0-21.9, adult Start:16-Sep-2021 Instruction Type:Provider Instructions for Treatment How to Access Health Informa tion Online using Patient Portal and [employer]rd [employer] Apps Indication:BMI 21.0-21.9, adult Start:16-Sep-2021 Instruction Type:Patient Education Patient Instructions Indication:Hypercholesteremia (Renamed from Hypercholesterolemia) Start:07-Nov-2019 Instruction Type:Provider Instructions for Treatment How to access health informa tion online Indication:BMI 21.0-21.9, adult Start:05-Feb-2019 Instruction Type:Patient Education How to access health informa tion online - Detail Indication:BMI 21.0-21.9, adult Start:05-Feb-2019 Instruction Type:Patient Education Patient Instructions Indication:Hypercalcemia Start:05-Feb-2019 Instruction Type:Provider Instructions for Treatment How to access health informa tion online - Detail Indication:BMI 21.0-21.9, adult Start:19-Feb-2018 Instruction Type:Patient Education How to access health informa tion online Indication:BMI 21.0-21.9, adult Start:19-Feb-2018 Instruction Type:Patient Education Patient Instructions Indication:BMI 21.0-21.9, adult Start:19-Feb-2018 Instruction Type:Provider Instructions for Treatment How to access health informa tion online Indication:BMI 21.0-21.9, adult Start:28-Aug-2017 Instruction Type:Patient Education How to access health informa tion online - Detail Indication:BMI 21.0-21.9, adult Start:28-Aug-2017 Instruction Type:Patient Education Patient Instructions Indication:BMI 21.0-21.9, adult Start:28-Aug-2017 Instruction Type:Provider Instructions for Treatment Patient Instructions Indication:Abnormal hemoglobin Start:20-Feb-2017 Instruction Type:Provider Instructions for Treatment How to access health informa tion online Indication:Hypertension, benign Start:20-Feb-2017 Instruction Type:Patient Education How to access health informa tion online - Detail Indication:Hypertension, benign Start:20-Feb-2017 Instruction Type:Patient Education Patient Instructions Indication:Hypertension, benign Start:20-Feb-2017 Instruction Type:Provider Instructions for Treatment How to access health informa tion online Indication:Hypertension, benign Start:03-Oct-2016 Instruction Type:Patient Education How to access health informa tion online - Detail Indication:Hypertension, benign Start:03-Oct-2016 Instruction Type:Patient Education Patient Instructions Indication:Hypertension, benign Start:03-Oct-2016 Instruction Type:Provider Instructions for Treatment How to access health informa tion online Indication:Encounter for pre-employment examination Start:22-Apr-2015 Instruction Type:Patient Education How to access health informa tion online - Detail Indication:Encounter for pre-employment examination Start:22-Apr-2015 Instruction Type:Patient Education Patient Instructions Indication:Encounter for pre-employment examination Start:22-Apr-2015 Instruction Type:Provider Instructions for Treatment How to access health informa tion online - Detail Indication:Physical exam, routine Start:05-Mar-2014 Instruction Type:Patient Education Patient Instructions Indication:Hypertension, benign Start:18-Mar-2013 Instruction Type:Provider Instructions for Treatment Patient Instructions Indication:Bite, insect Start:02-Jan-2013 Instruction Type:Provider Instructions for Treatment Patient Instructions Indication:WWV V73.21 Start:02-May-2012 Instruction Type:Provider Instructions for Treatment [facility]; [facility] Work Phone: Instructions* Name Dates Details Patient Instructions Indication:Nonsmoker Start:23-Aug-2022 Instruction Type:Provider Instructions for Treatment How to Access Health Informa tion Online using Patient Portal and [employer]rd [employer] Apps Indication:Nonsmoker Start:23-Aug-2022 Instruction Type:Patient Education Patient Instructions Indication:BMI 21.0-21.9, adult Start:16-Sep-2021 Instruction Type:Provider Instructions for Treatment How to Access Health Informa tion Online using Patient Portal and [employer]rd [employer] Apps Indication:BMI 21.0-21.9, adult Start:16-Sep-2021 Instruction Type:Patient Education Patient Instructions Indication:Hypercholesteremia (Renamed from Hypercholesterolemia) Start:07-Nov-2019 Instruction Type:Provider Instructions for Treatment How to access health informa tion online Indication:BMI 21.0-21.9, adult Start:05-Feb-2019 Instruction Type:Patient Education How to access health informa tion online - Detail Indication:BMI 21.0-21.9, adult Start:05-Feb-2019 Instruction Type:Patient Education Patient Instructions Indication:Hypercalcemia Start:05-Feb-2019 Instruction Type:Provider Instructions for Treatment How to access health informa tion online - Detail Indication:BMI 21.0-21.9, adult Start:19-Feb-2018 Instruction Type:Patient Education How to access health informa tion online Indication:BMI 21.0-21.9, adult Start:19-Feb-2018 Instruction Type:Patient Education Patient Instructions Indication:BMI 21.0-21.9, adult Start:19-Feb-2018 Instruction Type:Provider Instructions for Treatment How to access health informa tion online Indication:BMI 21.0-21.9, adult Start:28-Aug-2017 Instruction Type:Patient Education How to access health informa tion online - Detail Indication:BMI 21.0-21.9, adult Start:28-Aug-2017 Instruction Type:Patient Education Patient Instructions Indication:BMI 21.0-21.9, adult Start:28-Aug-2017 Instruction Type:Provider Instructions for Treatment Patient Instructions Indication:Abnormal hemoglobin Start:20-Feb-2017 Instruction Type:Provider Instructions for Treatment How to access health informa tion online Indication:Hypertension, benign Start:20-Feb-2017 Instruction Type:Patient Education How to access health informa tion online - Detail Indication:Hypertension, benign Start:20-Feb-2017 Instruction Type:Patient Education Patient Instructions Indication:Hypertension, benign Start:20-Feb-2017 Instruction Type:Provider Instructions for Treatment How to access health informa tion online Indication:Hypertension, benign Start:03-Oct-2016 Instruction Type:Patient Education How to access health informa tion online - Detail Indication:Hypertension, benign Start:03-Oct-2016 Instruction Type:Patient Education Patient Instructions Indication:Hypertension, benign Start:03-Oct-2016 Instruction Type:Provider Instructions for Treatment How to access health informa tion online Indication:Encounter for pre-employment examination Start:22-Apr-2015 Instruction Type:Patient Education How to access health informa tion online - Detail Indication:Encounter for pre-employment examination Start:22-Apr-2015 Instruction Type:Patient Education Patient Instructions Indication:Encounter for pre-employment examination Start:22-Apr-2015 Instruction Type:Provider Instructions for Treatment How to access health informa tion online - Detail Indication:Physical exam, routine Start:05-Mar-2014 Instruction Type:Patient Education Patient Instructions Indication:Hypertension, benign Start:18-Mar-2013 Instruction Type:Provider Instructions for Treatment Patient Instructions Indication:Bite, insect Start:02-Jan-2013 Instruction Type:Provider Instructions for Treatment Patient Instructions Indication:WWV V73.21 Start:02-May-2012 Instruction Type:Provider Instructions for Treatment [facility]; [facility] Work Phone: Instructions* Name Dates Details Patient Instructions Indication:Nonsmoker Start:23-Aug-2022 Instruction Type:Provider Instructions for Treatment How to Access Health Informa tion Online using Patient Portal and [employer] Apps Indication:Nonsmoker Start:23-Aug-2022 Instruction Type:Patient Education Patient Instructions Indication:BMI 21.0-21.9, adult Start:16-Sep-2021 Instruction Type:Provider Instructions for Treatment How to Access Health Informa tion Online using Patient Portal and [employer] Apps Indication:BMI 21.0-21.9, adult Start:16-Sep-2021 Instruction Type:Patient Education Patient Instructions Indication:Hypercholesteremia (Renamed from Hypercholesterolemia) Start:07-Nov-2019 Instruction Type:Provider Instructions for Treatment How to access health informa tion online Indication:BMI 21.0-21.9, adult Start:05-Feb-2019 Instruction Type:Patient Education How to access health informa tion online - Detail Indication:BMI 21.0-21.9, adult Start:05-Feb-2019 Instruction Type:Patient Education Patient Instructions Indication:Hypercalcemia Start:05-Feb-2019 Instruction Type:Provider Instructions for Treatment How to access health informa tion online - Detail Indication:BMI 21.0-21.9, adult Start:19-Feb-2018 Instruction Type:Patient Education How to access health informa tion online Indication:BMI 21.0-21.9, adult Start:19-Feb-2018 Instruction Type:Patient Education Patient Instructions Indication:BMI 21.0-21.9, adult Start:19-Feb-2018 Instruction Type:Provider Instructions for Treatment How to access health informa tion online Indication:BMI 21.0-21.9, adult Start:28-Aug-2017 Instruction Type:Patient Education How to access health informa tion online - Detail Indication:BMI 21.0-21.9, adult Start:28-Aug-2017 Instruction Type:Patient Education Patient Instructions Indication:BMI 21.0-21.9, adult Start:28-Aug-2017 Instruction Type:Provider Instructions for Treatment Patient Instructions Indication:Abnormal hemoglobin Start:20-Feb-2017 Instruction Type:Provider Instructions for Treatment How to access health informa tion online Indication:Hypertension, benign Start:20-Feb-2017 Instruction Type:Patient Education How to access health informa tion online - Detail Indication:Hypertension, benign Start:20-Feb-2017 Instruction Type:Patient Education Patient Instructions Indication:Hypertension, benign Start:20-Feb-2017 Instruction Type:Provider Instructions for Treatment How to access health informa tion online Indication:Hypertension, benign Start:03-Oct-2016 Instruction Type:Patient Education How to access health informa tion online - Detail Indication:Hypertension, benign Start:03-Oct-2016 Instruction Type:Patient Education Patient Instructions Indication:Hypertension, benign Start:03-Oct-2016 Instruction Type:Provider Instructions for Treatment How to access health informa tion online Indication:Encounter for pre-employment examination Start:22-Apr-2015 Instruction Type:Patient Education How to access health informa tion online - Detail Indication:Encounter for pre-employment examination Start:22-Apr-2015 Instruction Type:Patient Education Patient Instructions Indication:Encounter for pre-employment examination Start:22-Apr-2015 Instruction Type:Provider Instructions for Treatment How to access health informa tion online - Detail Indication:Physical exam, routine Start:05-Mar-2014 Instruction Type:Patient Education Patient Instructions Indication:Hypertension, benign Start:18-Mar-2013 Instruction Type:Provider Instructions for Treatment Patient Instructions Indication:Bite, insect Start:02-Jan-2013 Instruction Type:Provider Instructions for Treatment Patient Instructions Indication:WWV V73.21 Start:02-May-2012 Instruction Type:Provider Instructions for Treatment [facility]; [facility] Work Phone: Instructions* Name Dates Details Patient Instructions Indication:Nonsmoker Start:23-Aug-2022 Instruction Type:Provider Instructions for Treatment How to Access Health Informa tion Online using Patient Portal and [employer] Apps Indication:Nonsmoker Start:23-Aug-2022 Instruction Type:Patient Education Patient Instructions Indication:BMI 21.0-21.9, adult Start:16-Sep-2021 Instruction Type:Provider Instructions for Treatment How to Access Health Informa tion Online using Patient Portal and [employer] Apps Indication:BMI 21.0-21.9, adult Start:16-Sep-2021 Instruction Type:Patient Education Patient Instructions Indication:Hypercholesteremia (Renamed from Hypercholesterolemia) Start:07-Nov-2019 Instruction Type:Provider Instructions for Treatment How to access health informa tion online Indication:BMI 21.0-21.9, adult Start:05-Feb-2019 Instruction Type:Patient Education How to access health informa tion online - Detail Indication:BMI 21.0-21.9, adult Start:05-Feb-2019 Instruction Type:Patient Education Patient Instructions Indication:Hypercalcemia Start:05-Feb-2019 Instruction Type:Provider Instructions for Treatment How to access health informa tion online - Detail Indication:BMI 21.0-21.9, adult Start:19-Feb-2018 Instruction Type:Patient Education How to access health informa tion online Indication:BMI 21.0-21.9, adult Start:19-Feb-2018 Instruction Type:Patient Education Patient Instructions Indication:BMI 21.0-21.9, adult Start:19-Feb-2018 Instruction Type:Provider Instructions for Treatment How to access health informa tion online Indication:BMI 21.0-21.9, adult Start:28-Aug-2017 Instruction Type:Patient Education How to access health informa tion online - Detail Indication:BMI 21.0-21.9, adult Start:28-Aug-2017 Instruction Type:Patient Education Patient Instructions Indication:BMI 21.0-21.9, adult Start:28-Aug-2017 Instruction Type:Provider Instructions for Treatment Patient Instructions Indication:Abnormal hemoglobin Start:20-Feb-2017 Instruction Type:Provider Instructions for Treatment How to access health informa tion online Indication:Hypertension, benign Start:20-Feb-2017 Instruction Type:Patient Education How to access health informa tion online - Detail Indication:Hypertension, benign Start:20-Feb-2017 Instruction Type:Patient Education Patient Instructions Indication:Hypertension, benign Start:20-Feb-2017 Instruction Type:Provider Instructions for Treatment How to access health informa tion online Indication:Hypertension, benign Start:03-Oct-2016 Instruction Type:Patient Education How to access health informa tion online - Detail Indication:Hypertension, benign Start:03-Oct-2016 Instruction Type:Patient Education Patient Instructions Indication:Hypertension, benign Start:03-Oct-2016 Instruction Type:Provider Instructions for Treatment How to access health informa tion online Indication:Encounter for pre-employment examination Start:22-Apr-2015 Instruction Type:Patient Education How to access health informa tion online - Detail Indication:Encounter for pre-employment examination Start:22-Apr-2015 Instruction Type:Patient Education Patient Instructions Indication:Encounter for pre-employment examination Start:22-Apr-2015 Instruction Type:Provider Instructions for Treatment How to access health informa tion online - Detail Indication:Physical exam, routine Start:05-Mar-2014 Instruction Type:Patient Education Patient Instructions Indication:Hypertension, benign Start:18-Mar-2013 Instruction Type:Provider Instructions for Treatment Patient Instructions Indication:Bite, insect Start:02-Jan-2013 Instruction Type:Provider Instructions for Treatment Patient Instructions Indication:WWV V73.21 Start:02-May-2012 Instruction Type:Provider Instructions for Treatment [facility] Work Phone: Instructions* Name Dates Details Patient Instructions Indication:Nonsmoker Start:23-Aug-2022 Instruction Type:Provider Instructions for Treatment How to Access Health Informa tion Online using Patient Portal and 3rd [employer] Apps Indication:Nonsmoker Start:23-Aug-2022 Instruction Type:Patient Education Patient Instructions Indication:BMI 21.0-21.9, adult Start:16-Sep-2021 Instruction Type:Provider Instructions for Treatment How to Access Health Informa tion Online using Patient Portal and [employer] Apps Indication:BMI 21.0-21.9, adult Start:16-Sep-2021 Instruction Type:Patient Education Patient Instructions Indication:Hypercholesteremia (Renamed from Hypercholesterolemia) Start:07-Nov-2019 Instruction Type:Provider Instructions for Treatment How to access health informa tion online Indication:BMI 21.0-21.9, adult Start:05-Feb-2019 Instruction Type:Patient Education How to access health informa tion online - Detail Indication:BMI 21.0-21.9, adult Start:05-Feb-2019 Instruction Type:Patient Education Patient Instructions Indication:Hypercalcemia Start:05-Feb-2019 Instruction Type:Provider Instructions for Treatment How to access health informa tion online - Detail Indication:BMI 21.0-21.9, adult Start:19-Feb-2018 Instruction Type:Patient Education How to access health informa tion online Indication:BMI 21.0-21.9, adult Start:19-Feb-2018 Instruction Type:Patient Education Patient Instructions Indication:BMI 21.0-21.9, adult Start:19-Feb-2018 Instruction Type:Provider Instructions for Treatment How to access health informa tion online Indication:BMI 21.0-21.9, adult Start:28-Aug-2017 Instruction Type:Patient Education How to access health informa tion online - Detail Indication:BMI 21.0-21.9, adult Start:28-Aug-2017 Instruction Type:Patient Education Patient Instructions Indication:BMI 21.0-21.9, adult Start:28-Aug-2017 Instruction Type:Provider Instructions for Treatment Patient Instructions Indication:Abnormal hemoglobin Start:20-Feb-2017 Instruction Type:Provider Instructions for Treatment How to access health informa tion online Indication:Hypertension, benign Start:20-Feb-2017 Instruction Type:Patient Education How to access health informa tion online - Detail Indication:Hypertension, benign Start:20-Feb-2017 Instruction Type:Patient Education Patient Instructions Indication:Hypertension, benign Start:20-Feb-2017 Instruction Type:Provider Instructions for Treatment How to access health informa tion online Indication:Hypertension, benign Start:03-Oct-2016 Instruction Type:Patient Education How to access health informa tion online - Detail Indication:Hypertension, benign Start:03-Oct-2016 Instruction Type:Patient Education Patient Instructions Indication:Hypertension, benign Start:03-Oct-2016 Instruction Type:Provider Instructions for Treatment How to access health informa tion online Indication:Encounter for pre-employment examination Start:22-Apr-2015 Instruction Type:Patient Education How to access health informa tion online - Detail Indication:Encounter for pre-employment examination Start:22-Apr-2015 Instruction Type:Patient Education Patient Instructions Indication:Encounter for pre-employment examination Start:22-Apr-2015 Instruction Type:Provider Instructions for Treatment How to access health informa tion online - Detail Indication:Physical exam, routine Start:05-Mar-2014 Instruction Type:Patient Education Patient Instructions Indication:Hypertension, benign Start:18-Mar-2013 Instruction Type:Provider Instructions for Treatment Patient Instructions Indication:Bite, insect Start:02-Jan-2013 Instruction Type:Provider Instructions for Treatment Patient Instructions Indication:WWV V73.21 Start:02-May-2012 Instruction Type:Provider Instructions for Treatment [facility] Work Phone: Instructions* Name Dates Details Patient Instructions Indication:Nonsmoker Start:23-Aug-2022 Instruction Type:Provider Instructions for Treatment How to Access Health Informa tion Online using Patient Portal and [employer]rd [employer] Apps Indication:Nonsmoker Start:23-Aug-2022 Instruction Type:Patient Education Patient Instructions Indication:BMI 21.0-21.9, adult Start:16-Sep-2021 Instruction Type:Provider Instructions for Treatment How to Access Health Informa tion Online using Patient Portal and [employer]rd [employer] Apps Indication:BMI 21.0-21.9, adult Start:16-Sep-2021 Instruction Type:Patient Education Patient Instructions Indication:Hypercholesteremia (Renamed from Hypercholesterolemia) Start:07-Nov-2019 Instruction Type:Provider Instructions for Treatment How to access health informa tion online Indication:BMI 21.0-21.9, adult Start:05-Feb-2019 Instruction Type:Patient Education How to access health informa tion online - Detail Indication:BMI 21.0-21.9, adult Start:05-Feb-2019 Instruction Type:Patient Education Patient Instructions Indication:Hypercalcemia Start:05-Feb-2019 Instruction Type:Provider Instructions for Treatment How to access health informa tion online - Detail Indication:BMI 21.0-21.9, adult Start:19-Feb-2018 Instruction Type:Patient Education How to access health informa tion online Indication:BMI 21.0-21.9, adult Start:19-Feb-2018 Instruction Type:Patient Education Patient Instructions Indication:BMI 21.0-21.9, adult Start:19-Feb-2018 Instruction Type:Provider Instructions for Treatment How to access health informa tion online Indication:BMI 21.0-21.9, adult Start:28-Aug-2017 Instruction Type:Patient Education How to access health informa tion online - Detail Indication:BMI 21.0-21.9, adult Start:28-Aug-2017 Instruction Type:Patient Education Patient Instructions Indication:BMI 21.0-21.9, adult Start:28-Aug-2017 Instruction Type:Provider Instructions for Treatment Patient Instructions Indication:Abnormal hemoglobin Start:20-Feb-2017 Instruction Type:Provider Instructions for Treatment How to access health informa tion online Indication:Hypertension, benign Start:20-Feb-2017 Instruction Type:Patient Education How to access health informa tion online - Detail Indication:Hypertension, benign Start:20-Feb-2017 Instruction Type:Patient Education Patient Instructions Indication:Hypertension, benign Start:20-Feb-2017 Instruction Type:Provider Instructions for Treatment How to access health informa tion online Indication:Hypertension, benign Start:03-Oct-2016 Instruction Type:Patient Education How to access health informa tion online - Detail Indication:Hypertension, benign Start:03-Oct-2016 Instruction Type:Patient Education Patient Instructions Indication:Hypertension, benign Start:03-Oct-2016 Instruction Type:Provider Instructions for Treatment How to access health informa tion online Indication:Encounter for pre-employment examination Start:22-Apr-2015 Instruction Type:Patient Education How to access health informa tion online - Detail Indication:Encounter for pre-employment examination Start:22-Apr-2015 Instruction Type:Patient Education Patient Instructions Indication:Encounter for pre-employment examination Start:22-Apr-2015 Instruction Type:Provider Instructions for Treatment How to access health informa tion online - Detail Indication:Physical exam, routine Start:05-Mar-2014 Instruction Type:Patient Education Patient Instructions Indication:Hypertension, benign Start:18-Mar-2013 Instruction Type:Provider Instructions for Treatment Patient Instructions Indication:Bite, insect Start:02-Jan-2013 Instruction Type:Provider Instructions for Treatment Patient Instructions Indication:WWV V73.21 Start:02-May-2012 Instruction Type:Provider Instructions for Treatment [facility] Work Phone: Instructions* Name Dates Details Patient Instructions Indication:Nonsmoker Start:23-Aug-2022 Instruction Type:Provider Instructions for Treatment How to Access Health Informa tion Online using Patient Portal and [employer]rd [employer] Apps Indication:Nonsmoker Start:23-Aug-2022 Instruction Type:Patient Education Patient Instructions Indication:BMI 21.0-21.9, adult Start:16-Sep-2021 Instruction Type:Provider Instructions for Treatment How to Access Health Informa tion Online using Patient Portal and [employer]rd [employer] Apps Indication:BMI 21.0-21.9, adult Start:16-Sep-2021 Instruction Type:Patient Education Patient Instructions Indication:Hypercholesteremia (Renamed from Hypercholesterolemia) Start:07-Nov-2019 Instruction Type:Provider Instructions for Treatment How to access health informa tion online Indication:BMI 21.0-21.9, adult Start:05-Feb-2019 Instruction Type:Patient Education How to access health informa tion online - Detail Indication:BMI 21.0-21.9, adult Start:05-Feb-2019 Instruction Type:Patient Education Patient Instructions Indication:Hypercalcemia Start:05-Feb-2019 Instruction Type:Provider Instructions for Treatment How to access health informa tion online - Detail Indication:BMI 21.0-21.9, adult Start:19-Feb-2018 Instruction Type:Patient Education How to access health informa tion online Indication:BMI 21.0-21.9, adult Start:19-Feb-2018 Instruction Type:Patient Education Patient Instructions Indication:BMI 21.0-21.9, adult Start:19-Feb-2018 Instruction Type:Provider Instructions for Treatment How to access health informa tion online Indication:BMI 21.0-21.9, adult Start:28-Aug-2017 Instruction Type:Patient Education How to access health informa tion online - Detail Indication:BMI 21.0-21.9, adult Start:28-Aug-2017 Instruction Type:Patient Education Patient Instructions Indication:BMI 21.0-21.9, adult Start:28-Aug-2017 Instruction Type:Provider Instructions for Treatment Patient Instructions Indication:Abnormal hemoglobin Start:20-Feb-2017 Instruction Type:Provider Instructions for Treatment How to access health informa tion online Indication:Hypertension, benign Start:20-Feb-2017 Instruction Type:Patient Education How to access health informa tion online - Detail Indication:Hypertension, benign Start:20-Feb-2017 Instruction Type:Patient Education Patient Instructions Indication:Hypertension, benign Start:20-Feb-2017 Instruction Type:Provider Instructions for Treatment How to access health informa tion online Indication:Hypertension, benign Start:03-Oct-2016 Instruction Type:Patient Education How to access health informa tion online - Detail Indication:Hypertension, benign Start:03-Oct-2016 Instruction Type:Patient Education Patient Instructions Indication:Hypertension, benign Start:03-Oct-2016 Instruction Type:Provider Instructions for Treatment How to access health informa tion online Indication:Encounter for pre-employment examination Start:22-Apr-2015 Instruction Type:Patient Education How to access health informa tion online - Detail Indication:Encounter for pre-employment examination Start:22-Apr-2015 Instruction Type:Patient Education Patient Instructions Indication:Encounter for pre-employment examination Start:22-Apr-2015 Instruction Type:Provider Instructions for Treatment How to access health informa tion online - Detail Indication:Physical exam, routine Start:05-Mar-2014 Instruction Type:Patient Education Patient Instructions Indication:Hypertension, benign Start:18-Mar-2013 Instruction Type:Provider Instructions for Treatment Patient Instructions Indication:Bite, insect Start:02-Jan-2013 Instruction Type:Provider Instructions for Treatment Patient Instructions Indication:WWV V73.21 Start:02-May-2012 Instruction Type:Provider Instructions for Treatment [facility] Work Phone: Family History Unknown Family Member Name Dates Details Father Comments:adenocarcinoma dece ased age 72 Status:Active First Degree Relatives Comments:pateranl aunt breas t cancer Status:Active Maternal Grandfather Comments:heart disease Status:Active Maternal Grandmother Status:Active Paternal Grandfather Comments:heart disease Status:Active Paternal Grandmother Comments:hx stroke Status:Active Unknown Family Member Name Dates Details Father Comments:adenocarcinoma dece ased age 72 Status:Active First Degree Relatives Comments:pateranl aunt breas t cancer Status:Active Maternal Grandfather Comments:heart disease Status:Active Maternal Grandmother Status:Active Paternal Grandfather Comments:heart disease Status:Active Paternal Grandmother Comments:hx stroke Status:Active Unknown Family Member Name Dates Details Father Comments:adenocarcinoma dece ased age 72 Status:Active First Degree Relatives Comments:pateranl aunt breas t cancer Status:Active Maternal Grandfather Comments:heart disease Status:Active Maternal Grandmother Status:Active Paternal Grandfather Comments:heart disease Status:Active Paternal Grandmother Comments:hx stroke Status:Active Unknown Family Member Name Dates Details Father Comments:adenocarcinoma dece ased age 72 Status:Active First Degree Relatives Comments:pateranl aunt breas t cancer Status:Active Maternal Grandfather Comments:heart disease Status:Active Maternal Grandmother Status:Active Paternal Grandfather Comments:heart disease Status:Active Paternal Grandmother Comments:hx stroke Status:Active Unknown Family Member Name Dates Details Father Comments:adenocarcinoma dece ased age 72 Status:Active First Degree Relatives Comments:pateranl aunt breas t cancer Status:Active Maternal Grandfather Comments:heart disease Status:Active Maternal Grandmother Status:Active Paternal Grandfather Comments:heart disease Status:Active Paternal Grandmother Comments:hx stroke Status:Active Unknown Family Member Name Dates Details Father Comments:adenocarcinoma dece ased age 72 Status:Active First Degree Relatives Comments:pateranl aunt breas t cancer Status:Active Maternal Grandfather Comments:heart disease Status:Active Maternal Grandmother Status:Active Paternal Grandfather Comments:heart disease Status:Active Paternal Grandmother Comments:hx stroke Status:Active Unknown Family Member Name Dates Details Father Comments:adenocarcinoma dece ased age 72 Status:Active First Degree Relatives Comments:pateranl aunt breas t cancer Status:Active Maternal Grandfather Comments:heart disease Status:Active Maternal Grandmother Status:Active Paternal Grandfather Comments:heart disease Status:Active Paternal Grandmother Comments:hx stroke Status:Active Unknown Family Member Name Dates Details Father Comments:adenocarcinoma dece ased age 72 Status:Active First Degree Relatives Comments:pateranl aunt breas t cancer Status:Active Maternal Grandfather Comments:heart disease Status:Active Maternal Grandmother Status:Active Paternal Grandfather Comments:heart disease Status:Active Paternal Grandmother Comments:hx stroke Status:Active Unknown Family Member Name Dates Details Father Comments:adenocarcinoma dece ased age 72 Status:Active First Degree Relatives Comments:pateranl aunt breas t cancer Status:Active Maternal Grandfather Comments:heart disease Status:Active Maternal Grandmother Status:Active Paternal Grandfather Comments:heart disease Status:Active Paternal Grandmother Comments:hx stroke Status:Active Unknown Family Member Name Dates Details Father Comments:adenocarcinoma dece ased age 72 Status:Active First Degree Relatives Comments:pateranl aunt breas t cancer Status:Active Maternal Grandfather Comments:heart disease Status:Active Maternal Grandmother Status:Active Paternal Grandfather Comments:heart disease Status:Active Paternal Grandmother Comments:hx stroke Status:Active Unknown Family Member Name Dates Details Father Comments:adenocarcinoma dece ased age 72 Status:Active First Degree Relatives Comments:pateranl aunt breas t cancer Status:Active Maternal Grandfather Comments:heart disease Status:Active Maternal Grandmother Status:Active Paternal Grandfather Comments:heart disease Status:Active Paternal Grandmother Comments:hx stroke Status:Active Unknown Family Member Name Dates Details Father Comments:adenocarcinoma dece ased age 72 Status:Active First Degree Relatives Comments:pateranl aunt breas t cancer Status:Active Maternal Grandfather Comments:heart disease Status:Active Maternal Grandmother Status:Active Paternal Grandfather Comments:heart disease Status:Active Paternal Grandmother Comments:hx stroke Status:Active Unknown Family Member Name Dates Details Father Comments:adenocarcinoma dece ased age 72 Status:Active First Degree Relatives Comments:pateranl aunt breas t cancer Status:Active Maternal Grandfather Comments:heart disease Status:Active Maternal Grandmother Status:Active Paternal Grandfather Comments:heart disease Status:Active Paternal Grandmother Comments:hx stroke Status:Active Unknown Family Member Name Dates Details Father Comments:adenocarcinoma dece ased age 72 Status:Active First Degree Relatives Comments:pateranl aunt breas t cancer Status:Active Maternal Grandfather Comments:heart disease Status:Active Maternal Grandmother Status:Active Paternal Grandfather Comments:heart disease Status:Active Paternal Grandmother Comments:hx stroke Status:Active Unknown Family Member Name Dates Details Father Comments:adenocarcinoma dece ased age 72 Status:Active First Degree Relatives Comments:pateranl aunt breas t cancer Status:Active Maternal Grandfather Comments:heart disease Status:Active Maternal Grandmother Status:Active Paternal Grandfather Comments:heart disease Status:Active Paternal Grandmother Comments:hx stroke Status:Active Unknown Family Member Name Dates Details Father Comments:adenocarcinoma dece ased age 72 Status:Active First Degree Relatives Comments:pateranl aunt breas t cancer Status:Active Maternal Grandfather Comments:heart disease Status:Active Maternal Grandmother Status:Active Paternal Grandfather Comments:heart disease Status:Active Paternal Grandmother Comments:hx stroke Status:Active Unknown Family Member Name Dates Details Father Comments:adenocarcinoma dece ased age 72 Status:Active First Degree Relatives Comments:pateranl aunt breas t cancer Status:Active Maternal Grandfather Comments:heart disease Status:Active Maternal Grandmother Status:Active Paternal Grandfather Comments:heart disease Status:Active Paternal Grandmother Comments:hx stroke Status:Active Unknown Family Member Name Dates Details Father Comments:adenocarcinoma dece ased age 72 Status:Active First Degree Relatives Comments:pateranl aunt breas t cancer Status:Active Maternal Grandfather Comments:heart disease Status:Active Maternal Grandmother Status:Active Paternal Grandfather Comments:heart disease Status:Active Paternal Grandmother Comments:hx stroke Status:Active Unknown Family Member Name Dates Details Father Comments:adenocarcinoma dece ased age 72 Status:Active First Degree Relatives Comments:pateranl aunt breas t cancer Status:Active Maternal Grandfather Comments:heart disease Status:Active Maternal Grandmother Status:Active Paternal Grandfather Comments:heart disease Status:Active Paternal Grandmother Comments:hx stroke Status:Active Unknown Family Member Name Dates Details Father Comments:adenocarcinoma dece ased age 72 Status:Active First Degree Relatives Comments:pateranl aunt breas t cancer Status:Active Maternal Grandfather Comments:heart disease Status:Active Maternal Grandmother Status:Active Paternal Grandfather Comments:heart disease Status:Active Paternal Grandmother Comments:hx stroke Status:Active Unknown Family Member Name Dates Details Father Comments:adenocarcinoma dece ased age 72 Status:Active First Degree Relatives Comments:pateranl aunt breas t cancer Status:Active Maternal Grandfather Comments:heart disease Status:Active Maternal Grandmother Status:Active Paternal Grandfather Comments:heart disease Status:Active Paternal Grandmother Comments:hx stroke Status:Active Unknown Family Member Name Dates Details Father Comments:adenocarcinoma dece ased age 72 Status:Active First Degree Relatives Comments:pateranl aunt breas t cancer Status:Active Maternal Grandfather Comments:heart disease Status:Active Maternal Grandmother Status:Active Paternal Grandfather Comments:heart disease Status:Active Paternal Grandmother Comments:hx stroke Status:Active Unknown Family Member Name Dates Details Father Comments:adenocarcinoma dece ased age 72 Status:Active First Degree Relatives Comments:pateranl aunt breas t cancer Status:Active Maternal Grandfather Comments:heart disease Status:Active Maternal Grandmother Status:Active Paternal Grandfather Comments:heart disease Status:Active Paternal Grandmother Comments:hx stroke Status:Active Unknown Family Member Name Dates Details Father Comments:adenocarcinoma dece ased age 72 Status:Active First Degree Relatives Comments:pateranl aunt breas t cancer Status:Active Maternal Grandfather Comments:heart disease Status:Active Maternal Grandmother Status:Active Paternal Grandfather Comments:heart disease Status:Active Paternal Grandmother Comments:hx stroke Status:Active Unknown Family Member Name Dates Details Father Comments:adenocarcinoma dece ased age 72 Status:Active First Degree Relatives Comments:pateranl aunt breas t cancer Status:Active Maternal Grandfather Comments:heart disease Status:Active Maternal Grandmother Status:Active Paternal Grandfather Comments:heart disease Status:Active Paternal Grandmother Comments:hx stroke Status:Active Unknown Family Member Name Dates Details Father Comments:adenocarcinoma dece ased age 72 Status:Active First Degree Relatives Comments:pateranl aunt breas t cancer Status:Active Maternal Grandfather Comments:heart disease Status:Active Maternal Grandmother Status:Active Paternal Grandfather Comments:heart disease Status:Active Paternal Grandmother Comments:hx stroke Status:Active Unknown Family Member Name Dates Details Father Comments:adenocarcinoma dece ased age 72 Status:Active First Degree Relatives Comments:pateranl aunt breas t cancer Status:Active Maternal Grandfather Comments:heart disease Status:Active Maternal Grandmother Status:Active Paternal Grandfather Comments:heart disease Status:Active Paternal Grandmother Comments:hx stroke Status:Active Unknown Family Member Name Dates Details Father Comments:adenocarcinoma dece ased age 72 Status:Active First Degree Relatives Comments:pateranl aunt breas t cancer Status:Active Maternal Grandfather Comments:heart disease Status:Active Maternal Grandmother Status:Active Paternal Grandfather Comments:heart disease Status:Active Paternal Grandmother Comments:hx stroke Status:Active Unknown Family Member Name Dates Details Father Comments:adenocarcinoma dece ased age 72 Status:Active First Degree Relatives Comments:pateranl aunt breas t cancer Status:Active Maternal Grandfather Comments:heart disease Status:Active Maternal Grandmother Status:Active Paternal Grandfather Comments:heart disease Status:Active Paternal Grandmother Comments:hx stroke Status:Active Unknown Family Member Name Dates Details Father Comments:adenocarcinoma dece ased age 72 Status:Active First Degree Relatives Comments:pateranl aunt breas t cancer Status:Active Maternal Grandfather Comments:heart disease Status:Active Maternal Grandmother Status:Active Paternal Grandfather Comments:heart disease Status:Active Paternal Grandmother Comments:hx stroke Status:Active Unknown Family Member Name Dates Details Father Comments:adenocarcinoma dece ased age 72 Status:Active First Degree Relatives Comments:pateranl aunt breas t cancer Status:Active Maternal Grandfather Comments:heart disease Status:Active Maternal Grandmother Status:Active Paternal Grandfather Comments:heart disease Status:Active Paternal Grandmother Comments:hx stroke Status:Active Unknown Family Member Name Dates Details Father Comments:adenocarcinoma dece ased age 72 Status:Active First Degree Relatives Comments:pateranl aunt valentín barber cancer Status:Active Maternal Grandfather Comments:heart disease Status:Active Maternal Grandmother Status:Active Paternal Grandfather Comments:heart disease Status:Active Paternal Grandmother Comments:hx stroke Status:Active Instructions Name Dates Details BMI 21.0-21.9, adult : How t o access health information online - Detail Indication:BMI 21.0-21.9, adult BMI 21.0-21.9, adult : How t o access health information online Indication:BMI 21.0-21.9, adult BMI 21.0-21.9, adult : Patie nt Instructions Indication:BMI 21.0-21.9, adult Abnormal hemoglobin : Patien t Instructions Indication:Abnormal hemoglobin Hypertension, benign : How t o access health information online Indication:Hypertension, benign Hypertension, benign : How t o access health information online - Detail Indication:Hypertension, benign Hypertension, benign : Patie nt Instructions Indication:Hypertension, benign Encounter for pre-employment examination : How to access health information online Indication:Encounter for pre-employment examination Encounter for pre-employment examination : How to access health information online - Detail Indication:Encounter for pre-employment examination Encounter for pre-employment examination : Patient Instructions Indication:Encounter for pre-employment examination Physical exam, routine : How to access health information online - Detail Indication:Physical exam, routine Bite, insect : Patient Instr uctions Indication:Bite, insect [facility] V73.21 : Patient Instruc tions Indication:[facility] V73.21 Name Dates Details How to access health informa tion online Indication:BMI 21.0-21.9, adult Start:05-Feb-2019 Instruction Type:Patient Education How to access health informa tion online - Detail Indication:BMI 21.0-21.9, adult Start:05-Feb-2019 Instruction Type:Patient Education Patient Instructions Indication:Hypercalcemia Start:05-Feb-2019 Instruction Type:Provider Instructions for Treatment How to access health informa tion online - Detail Indication:BMI 21.0-21.9, adult Start:19-Feb-2018 Instruction Type:Patient Education How to access health informa tion online Indication:BMI 21.0-21.9, adult Start:19-Feb-2018 Instruction Type:Patient Education Patient Instructions Indication:BMI 21.0-21.9, adult Start:19-Feb-2018 Instruction Type:Provider Instructions for Treatment How to access health informa tion online Indication:BMI 21.0-21.9, adult Start:28-Aug-2017 Instruction Type:Patient Education How to access health informa tion online - Detail Indication:BMI 21.0-21.9, adult Start:28-Aug-2017 Instruction Type:Patient Education Patient Instructions Indication:BMI 21.0-21.9, adult Start:28-Aug-2017 Instruction Type:Provider Instructions for Treatment Patient Instructions Indication:Abnormal hemoglobin Start:20-Feb-2017 Instruction Type:Provider Instructions for Treatment How to access health informa tion online Indication:Hypertension, benign Start:20-Feb-2017 Instruction Type:Patient Education How to access health informa tion online - Detail Indication:Hypertension, benign Start:20-Feb-2017 Instruction Type:Patient Education Patient Instructions Indication:Hypertension, benign Start:20-Feb-2017 Instruction Type:Provider Instructions for Treatment How to access health informa tion online Indication:Hypertension, benign Start:03-Oct-2016 Instruction Type:Patient Education How to access health informa tion online - Detail Indication:Hypertension, benign Start:03-Oct-2016 Instruction Type:Patient Education Patient Instructions Indication:Hypertension, benign Start:03-Oct-2016 Instruction Type:Provider Instructions for Treatment How to access health informa tion online Indication:Encounter for pre-employment examination Start:22-Apr-2015 Instruction Type:Patient Education How to access health informa tion online - Detail Indication:Encounter for pre-employment examination Start:22-Apr-2015 Instruction Type:Patient Education Patient Instructions Indication:Encounter for pre-employment examination Start:22-Apr-2015 Instruction Type:Provider Instructions for Treatment How to access health informa tion online - Detail Indication:Physical exam, routine Start:05-Mar-2014 Instruction Type:Patient Education Patient Instructions Indication:Hypertension, benign Start:18-Mar-2013 Instruction Type:Provider Instructions for Treatment Patient Instructions Indication:Bite, insect Start:02-Jan-2013 Instruction Type:Provider Instructions for Treatment Patient Instructions Indication:WWV V73.21 Start:02-May-2012 Instruction Type:Provider Instructions for Treatment Name Dates Details How to access health informa tion online Indication:BMI 21.0-21.9, adult Start:05-Feb-2019 Instruction Type:Patient Education How to access health informa tion online - Detail Indication:BMI 21.0-21.9, adult Start:05-Feb-2019 Instruction Type:Patient Education Patient Instructions Indication:Hypercalcemia Start:05-Feb-2019 Instruction Type:Provider Instructions for Treatment How to access health informa tion online - Detail Indication:BMI 21.0-21.9, adult Start:19-Feb-2018 Instruction Type:Patient Education How to access health informa tion online Indication:BMI 21.0-21.9, adult Start:19-Feb-2018 Instruction Type:Patient Education Patient Instructions Indication:BMI 21.0-21.9, adult Start:19-Feb-2018 Instruction Type:Provider Instructions for Treatment How to access health informa tion online Indication:BMI 21.0-21.9, adult Start:28-Aug-2017 Instruction Type:Patient Education How to access health informa tion online - Detail Indication:BMI 21.0-21.9, adult Start:28-Aug-2017 Instruction Type:Patient Education Patient Instructions Indication:BMI 21.0-21.9, adult Start:28-Aug-2017 Instruction Type:Provider Instructions for Treatment Patient Instructions Indication:Abnormal hemoglobin Start:20-Feb-2017 Instruction Type:Provider Instructions for Treatment How to access health informa tion online Indication:Hypertension, benign Start:20-Feb-2017 Instruction Type:Patient Education How to access health informa tion online - Detail Indication:Hypertension, benign Start:20-Feb-2017 Instruction Type:Patient Education Patient Instructions Indication:Hypertension, benign Start:20-Feb-2017 Instruction Type:Provider Instructions for Treatment How to access health informa tion online Indication:Hypertension, benign Start:03-Oct-2016 Instruction Type:Patient Education How to access health informa tion online - Detail Indication:Hypertension, benign Start:03-Oct-2016 Instruction Type:Patient Education Patient Instructions Indication:Hypertension, benign Start:03-Oct-2016 Instruction Type:Provider Instructions for Treatment How to access health informa tion online Indication:Encounter for pre-employment examination Start:22-Apr-2015 Instruction Type:Patient Education How to access health informa tion online - Detail Indication:Encounter for pre-employment examination Start:22-Apr-2015 Instruction Type:Patient Education Patient Instructions Indication:Encounter for pre-employment examination Start:22-Apr-2015 Instruction Type:Provider Instructions for Treatment How to access health informa tion online - Detail Indication:Physical exam, routine Start:05-Mar-2014 Instruction Type:Patient Education Patient Instructions Indication:Hypertension, benign Start:18-Mar-2013 Instruction Type:Provider Instructions for Treatment Patient Instructions Indication:Bite, insect Start:02-Jan-2013 Instruction Type:Provider Instructions for Treatment Patient Instructions Indication:WWV V73.21 Start:02-May-2012 Instruction Type:Provider Instructions for Treatment Name Dates Details How to access health informa tion online Indication:BMI 21.0-21.9, adult Start:05-Feb-2019 Instruction Type:Patient Education How to access health informa tion online - Detail Indication:BMI 21.0-21.9, adult Start:05-Feb-2019 Instruction Type:Patient Education Patient Instructions Indication:Hypercalcemia Start:05-Feb-2019 Instruction Type:Provider Instructions for Treatment How to access health informa tion online - Detail Indication:BMI 21.0-21.9, adult Start:19-Feb-2018 Instruction Type:Patient Education How to access health informa tion online Indication:BMI 21.0-21.9, adult Start:19-Feb-2018 Instruction Type:Patient Education Patient Instructions Indication:BMI 21.0-21.9, adult Start:19-Feb-2018 Instruction Type:Provider Instructions for Treatment How to access health informa tion online Indication:BMI 21.0-21.9, adult Start:28-Aug-2017 Instruction Type:Patient Education How to access health informa tion online - Detail Indication:BMI 21.0-21.9, adult Start:28-Aug-2017 Instruction Type:Patient Education Patient Instructions Indication:BMI 21.0-21.9, adult Start:28-Aug-2017 Instruction Type:Provider Instructions for Treatment Patient Instructions Indication:Abnormal hemoglobin Start:20-Feb-2017 Instruction Type:Provider Instructions for Treatment How to access health informa tion online Indication:Hypertension, benign Start:20-Feb-2017 Instruction Type:Patient Education How to access health informa tion online - Detail Indication:Hypertension, benign Start:20-Feb-2017 Instruction Type:Patient Education Patient Instructions Indication:Hypertension, benign Start:20-Feb-2017 Instruction Type:Provider Instructions for Treatment How to access health informa tion online Indication:Hypertension, benign Start:03-Oct-2016 Instruction Type:Patient Education How to access health informa tion online - Detail Indication:Hypertension, benign Start:03-Oct-2016 Instruction Type:Patient Education Patient Instructions Indication:Hypertension, benign Start:03-Oct-2016 Instruction Type:Provider Instructions for Treatment How to access health informa tion online Indication:Encounter for pre-employment examination Start:22-Apr-2015 Instruction Type:Patient Education How to access health informa tion online - Detail Indication:Encounter for pre-employment examination Start:22-Apr-2015 Instruction Type:Patient Education Patient Instructions Indication:Encounter for pre-employment examination Start:22-Apr-2015 Instruction Type:Provider Instructions for Treatment How to access health informa tion online - Detail Indication:Physical exam, routine Start:05-Mar-2014 Instruction Type:Patient Education Patient Instructions Indication:Hypertension, benign Start:18-Mar-2013 Instruction Type:Provider Instructions for Treatment Patient Instructions Indication:Bite, insect Start:02-Jan-2013 Instruction Type:Provider Instructions for Treatment Patient Instructions Indication:WWV V73.21 Start:02-May-2012 Instruction Type:Provider Instructions for Treatment Name Dates Details How to access health informa tion online Indication:BMI 21.0-21.9, adult Start:05-Feb-2019 Instruction Type:Patient Education How to access health informa tion online - Detail Indication:BMI 21.0-21.9, adult Start:05-Feb-2019 Instruction Type:Patient Education Patient Instructions Indication:Hypercalcemia Start:05-Feb-2019 Instruction Type:Provider Instructions for Treatment How to access health informa tion online - Detail Indication:BMI 21.0-21.9, adult Start:19-Feb-2018 Instruction Type:Patient Education How to access health informa tion online Indication:BMI 21.0-21.9, adult Start:19-Feb-2018 Instruction Type:Patient Education Patient Instructions Indication:BMI 21.0-21.9, adult Start:19-Feb-2018 Instruction Type:Provider Instructions for Treatment How to access health informa tion online Indication:BMI 21.0-21.9, adult Start:28-Aug-2017 Instruction Type:Patient Education How to access health informa tion online - Detail Indication:BMI 21.0-21.9, adult Start:28-Aug-2017 Instruction Type:Patient Education Patient Instructions Indication:BMI 21.0-21.9, adult Start:28-Aug-2017 Instruction Type:Provider Instructions for Treatment Patient Instructions Indication:Abnormal hemoglobin Start:20-Feb-2017 Instruction Type:Provider Instructions for Treatment How to access health informa tion online Indication:Hypertension, benign Start:20-Feb-2017 Instruction Type:Patient Education How to access health informa tion online - Detail Indication:Hypertension, benign Start:20-Feb-2017 Instruction Type:Patient Education Patient Instructions Indication:Hypertension, benign Start:20-Feb-2017 Instruction Type:Provider Instructions for Treatment How to access health informa tion online Indication:Hypertension, benign Start:03-Oct-2016 Instruction Type:Patient Education How to access health informa tion online - Detail Indication:Hypertension, benign Start:03-Oct-2016 Instruction Type:Patient Education Patient Instructions Indication:Hypertension, benign Start:03-Oct-2016 Instruction Type:Provider Instructions for Treatment How to access health informa tion online Indication:Encounter for pre-employment examination Start:22-Apr-2015 Instruction Type:Patient Education How to access health informa tion online - Detail Indication:Encounter for pre-employment examination Start:22-Apr-2015 Instruction Type:Patient Education Patient Instructions Indication:Encounter for pre-employment examination Start:22-Apr-2015 Instruction Type:Provider Instructions for Treatment How to access health informa tion online - Detail Indication:Physical exam, routine Start:05-Mar-2014 Instruction Type:Patient Education Patient Instructions Indication:Hypertension, benign Start:18-Mar-2013 Instruction Type:Provider Instructions for Treatment Patient Instructions Indication:Bite, insect Start:02-Jan-2013 Instruction Type:Provider Instructions for Treatment Patient Instructions Indication:WWV V73.21 Start:02-May-2012 Instruction Type:Provider Instructions for Treatment Name Dates Details How to access health informa tion online Indication:BMI 21.0-21.9, adult Start:05-Feb-2019 Instruction Type:Patient Education How to access health informa tion online - Detail Indication:BMI 21.0-21.9, adult Start:05-Feb-2019 Instruction Type:Patient Education Patient Instructions Indication:Hypercalcemia Start:05-Feb-2019 Instruction Type:Provider Instructions for Treatment How to access health informa tion online - Detail Indication:BMI 21.0-21.9, adult Start:19-Feb-2018 Instruction Type:Patient Education How to access health informa tion online Indication:BMI 21.0-21.9, adult Start:19-Feb-2018 Instruction Type:Patient Education Patient Instructions Indication:BMI 21.0-21.9, adult Start:19-Feb-2018 Instruction Type:Provider Instructions for Treatment How to access health informa tion online Indication:BMI 21.0-21.9, adult Start:28-Aug-2017 Instruction Type:Patient Education How to access health informa tion online - Detail Indication:BMI 21.0-21.9, adult Start:28-Aug-2017 Instruction Type:Patient Education Patient Instructions Indication:BMI 21.0-21.9, adult Start:28-Aug-2017 Instruction Type:Provider Instructions for Treatment Patient Instructions Indication:Abnormal hemoglobin Start:20-Feb-2017 Instruction Type:Provider Instructions for Treatment How to access health informa tion online Indication:Hypertension, benign Start:20-Feb-2017 Instruction Type:Patient Education How to access health informa tion online - Detail Indication:Hypertension, benign Start:20-Feb-2017 Instruction Type:Patient Education Patient Instructions Indication:Hypertension, benign Start:20-Feb-2017 Instruction Type:Provider Instructions for Treatment How to access health informa tion online Indication:Hypertension, benign Start:03-Oct-2016 Instruction Type:Patient Education How to access health informa tion online - Detail Indication:Hypertension, benign Start:03-Oct-2016 Instruction Type:Patient Education Patient Instructions Indication:Hypertension, benign Start:03-Oct-2016 Instruction Type:Provider Instructions for Treatment How to access health informa tion online Indication:Encounter for pre-employment examination Start:22-Apr-2015 Instruction Type:Patient Education How to access health informa tion online - Detail Indication:Encounter for pre-employment examination Start:22-Apr-2015 Instruction Type:Patient Education Patient Instructions Indication:Encounter for pre-employment examination Start:22-Apr-2015 Instruction Type:Provider Instructions for Treatment How to access health informa tion online - Detail Indication:Physical exam, routine Start:05-Mar-2014 Instruction Type:Patient Education Patient Instructions Indication:Hypertension, benign Start:18-Mar-2013 Instruction Type:Provider Instructions for Treatment Patient Instructions Indication:Bite, insect Start:02-Jan-2013 Instruction Type:Provider Instructions for Treatment Patient Instructions Indication:WWV V73.21 Start:02-May-2012 Instruction Type:Provider Instructions for Treatment Name Dates Details How to access health informa tion online Indication:BMI 21.0-21.9, adult Start:05-Feb-2019 Instruction Type:Patient Education How to access health informa tion online - Detail Indication:BMI 21.0-21.9, adult Start:05-Feb-2019 Instruction Type:Patient Education Patient Instructions Indication:Hypercalcemia Start:05-Feb-2019 Instruction Type:Provider Instructions for Treatment How to access health informa tion online - Detail Indication:BMI 21.0-21.9, adult Start:19-Feb-2018 Instruction Type:Patient Education How to access health informa tion online Indication:BMI 21.0-21.9, adult Start:19-Feb-2018 Instruction Type:Patient Education Patient Instructions Indication:BMI 21.0-21.9, adult Start:19-Feb-2018 Instruction Type:Provider Instructions for Treatment How to access health informa tion online Indication:BMI 21.0-21.9, adult Start:28-Aug-2017 Instruction Type:Patient Education How to access health informa tion online - Detail Indication:BMI 21.0-21.9, adult Start:28-Aug-2017 Instruction Type:Patient Education Patient Instructions Indication:BMI 21.0-21.9, adult Start:28-Aug-2017 Instruction Type:Provider Instructions for Treatment Patient Instructions Indication:Abnormal hemoglobin Start:20-Feb-2017 Instruction Type:Provider Instructions for Treatment How to access health informa tion online Indication:Hypertension, benign Start:20-Feb-2017 Instruction Type:Patient Education How to access health informa tion online - Detail Indication:Hypertension, benign Start:20-Feb-2017 Instruction Type:Patient Education Patient Instructions Indication:Hypertension, benign Start:20-Feb-2017 Instruction Type:Provider Instructions for Treatment How to access health informa tion online Indication:Hypertension, benign Start:03-Oct-2016 Instruction Type:Patient Education How to access health informa tion online - Detail Indication:Hypertension, benign Start:03-Oct-2016 Instruction Type:Patient Education Patient Instructions Indication:Hypertension, benign Start:03-Oct-2016 Instruction Type:Provider Instructions for Treatment How to access health informa tion online Indication:Encounter for pre-employment examination Start:22-Apr-2015 Instruction Type:Patient Education How to access health informa tion online - Detail Indication:Encounter for pre-employment examination Start:22-Apr-2015 Instruction Type:Patient Education Patient Instructions Indication:Encounter for pre-employment examination Start:22-Apr-2015 Instruction Type:Provider Instructions for Treatment How to access health informa tion online - Detail Indication:Physical exam, routine Start:05-Mar-2014 Instruction Type:Patient Education Patient Instructions Indication:Hypertension, benign Start:18-Mar-2013 Instruction Type:Provider Instructions for Treatment Patient Instructions Indication:Bite, insect Start:02-Jan-2013 Instruction Type:Provider Instructions for Treatment Patient Instructions Indication:WWV V73.21 Start:02-May-2012 Instruction Type:Provider Instructions for Treatment Name Dates Details How to access health informa tion online Indication:BMI 21.0-21.9, adult Start:05-Feb-2019 Instruction Type:Patient Education How to access health informa tion online - Detail Indication:BMI 21.0-21.9, adult Start:05-Feb-2019 Instruction Type:Patient Education Patient Instructions Indication:Hypercalcemia Start:05-Feb-2019 Instruction Type:Provider Instructions for Treatment How to access health informa tion online - Detail Indication:BMI 21.0-21.9, adult Start:19-Feb-2018 Instruction Type:Patient Education How to access health informa tion online Indication:BMI 21.0-21.9, adult Start:19-Feb-2018 Instruction Type:Patient Education Patient Instructions Indication:BMI 21.0-21.9, adult Start:19-Feb-2018 Instruction Type:Provider Instructions for Treatment How to access health informa tion online Indication:BMI 21.0-21.9, adult Start:28-Aug-2017 Instruction Type:Patient Education How to access health informa tion online - Detail Indication:BMI 21.0-21.9, adult Start:28-Aug-2017 Instruction Type:Patient Education Patient Instructions Indication:BMI 21.0-21.9, adult Start:28-Aug-2017 Instruction Type:Provider Instructions for Treatment Patient Instructions Indication:Abnormal hemoglobin Start:20-Feb-2017 Instruction Type:Provider Instructions for Treatment How to access health informa tion online Indication:Hypertension, benign Start:20-Feb-2017 Instruction Type:Patient Education How to access health informa tion online - Detail Indication:Hypertension, benign Start:20-Feb-2017 Instruction Type:Patient Education Patient Instructions Indication:Hypertension, benign Start:20-Feb-2017 Instruction Type:Provider Instructions for Treatment How to access health informa tion online Indication:Hypertension, benign Start:03-Oct-2016 Instruction Type:Patient Education How to access health informa tion online - Detail Indication:Hypertension, benign Start:03-Oct-2016 Instruction Type:Patient Education Patient Instructions Indication:Hypertension, benign Start:03-Oct-2016 Instruction Type:Provider Instructions for Treatment How to access health informa tion online Indication:Encounter for pre-employment examination Start:22-Apr-2015 Instruction Type:Patient Education How to access health informa tion online - Detail Indication:Encounter for pre-employment examination Start:22-Apr-2015 Instruction Type:Patient Education Patient Instructions Indication:Encounter for pre-employment examination Start:22-Apr-2015 Instruction Type:Provider Instructions for Treatment How to access health informa tion online - Detail Indication:Physical exam, routine Start:05-Mar-2014 Instruction Type:Patient Education Patient Instructions Indication:Hypertension, benign Start:18-Mar-2013 Instruction Type:Provider Instructions for Treatment Patient Instructions Indication:Bite, insect Start:02-Jan-2013 Instruction Type:Provider Instructions for Treatment Patient Instructions Indication:WWV V73.21 Start:02-May-2012 Instruction Type:Provider Instructions for Treatment Name Dates Details How to access health informa tion online Indication:BMI 21.0-21.9, adult Start:05-Feb-2019 Instruction Type:Patient Education How to access health informa tion online - Detail Indication:BMI 21.0-21.9, adult Start:05-Feb-2019 Instruction Type:Patient Education Patient Instructions Indication:Hypercalcemia Start:05-Feb-2019 Instruction Type:Provider Instructions for Treatment How to access health informa tion online - Detail Indication:BMI 21.0-21.9, adult Start:19-Feb-2018 Instruction Type:Patient Education How to access health informa tion online Indication:BMI 21.0-21.9, adult Start:19-Feb-2018 Instruction Type:Patient Education Patient Instructions Indication:BMI 21.0-21.9, adult Start:19-Feb-2018 Instruction Type:Provider Instructions for Treatment How to access health informa tion online Indication:BMI 21.0-21.9, adult Start:28-Aug-2017 Instruction Type:Patient Education How to access health informa tion online - Detail Indication:BMI 21.0-21.9, adult Start:28-Aug-2017 Instruction Type:Patient Education Patient Instructions Indication:BMI 21.0-21.9, adult Start:28-Aug-2017 Instruction Type:Provider Instructions for Treatment Patient Instructions Indication:Abnormal hemoglobin Start:20-Feb-2017 Instruction Type:Provider Instructions for Treatment How to access health informa tion online Indication:Hypertension, benign Start:20-Feb-2017 Instruction Type:Patient Education How to access health informa tion online - Detail Indication:Hypertension, benign Start:20-Feb-2017 Instruction Type:Patient Education Patient Instructions Indication:Hypertension, benign Start:20-Feb-2017 Instruction Type:Provider Instructions for Treatment How to access health informa tion online Indication:Hypertension, benign Start:03-Oct-2016 Instruction Type:Patient Education How to access health informa tion online - Detail Indication:Hypertension, benign Start:03-Oct-2016 Instruction Type:Patient Education Patient Instructions Indication:Hypertension, benign Start:03-Oct-2016 Instruction Type:Provider Instructions for Treatment How to access health informa tion online Indication:Encounter for pre-employment examination Start:22-Apr-2015 Instruction Type:Patient Education How to access health informa tion online - Detail Indication:Encounter for pre-employment examination Start:22-Apr-2015 Instruction Type:Patient Education Patient Instructions Indication:Encounter for pre-employment examination Start:22-Apr-2015 Instruction Type:Provider Instructions for Treatment How to access health informa tion online - Detail Indication:Physical exam, routine Start:05-Mar-2014 Instruction Type:Patient Education Patient Instructions Indication:Hypertension, benign Start:18-Mar-2013 Instruction Type:Provider Instructions for Treatment Patient Instructions Indication:Bite, insect Start:02-Jan-2013 Instruction Type:Provider Instructions for Treatment Patient Instructions Indication:WWV V73.21 Start:02-May-2012 Instruction Type:Provider Instructions for Treatment Name Dates Details How to access health informa tion online Indication:BMI 21.0-21.9, adult Start:05-Feb-2019 Instruction Type:Patient Education How to access health informa tion online - Detail Indication:BMI 21.0-21.9, adult Start:05-Feb-2019 Instruction Type:Patient Education Patient Instructions Indication:Hypercalcemia Start:05-Feb-2019 Instruction Type:Provider Instructions for Treatment How to access health informa tion online - Detail Indication:BMI 21.0-21.9, adult Start:19-Feb-2018 Instruction Type:Patient Education How to access health informa tion online Indication:BMI 21.0-21.9, adult Start:19-Feb-2018 Instruction Type:Patient Education Patient Instructions Indication:BMI 21.0-21.9, adult Start:19-Feb-2018 Instruction Type:Provider Instructions for Treatment How to access health informa tion online Indication:BMI 21.0-21.9, adult Start:28-Aug-2017 Instruction Type:Patient Education How to access health informa tion online - Detail Indication:BMI 21.0-21.9, adult Start:28-Aug-2017 Instruction Type:Patient Education Patient Instructions Indication:BMI 21.0-21.9, adult Start:28-Aug-2017 Instruction Type:Provider Instructions for Treatment Patient Instructions Indication:Abnormal hemoglobin Start:20-Feb-2017 Instruction Type:Provider Instructions for Treatment How to access health informa tion online Indication:Hypertension, benign Start:20-Feb-2017 Instruction Type:Patient Education How to access health informa tion online - Detail Indication:Hypertension, benign Start:20-Feb-2017 Instruction Type:Patient Education Patient Instructions Indication:Hypertension, benign Start:20-Feb-2017 Instruction Type:Provider Instructions for Treatment How to access health informa tion online Indication:Hypertension, benign Start:03-Oct-2016 Instruction Type:Patient Education How to access health informa tion online - Detail Indication:Hypertension, benign Start:03-Oct-2016 Instruction Type:Patient Education Patient Instructions Indication:Hypertension, benign Start:03-Oct-2016 Instruction Type:Provider Instructions for Treatment How to access health informa tion online Indication:Encounter for pre-employment examination Start:22-Apr-2015 Instruction Type:Patient Education How to access health informa tion online - Detail Indication:Encounter for pre-employment examination Start:22-Apr-2015 Instruction Type:Patient Education Patient Instructions Indication:Encounter for pre-employment examination Start:22-Apr-2015 Instruction Type:Provider Instructions for Treatment How to access health informa tion online - Detail Indication:Physical exam, routine Start:05-Mar-2014 Instruction Type:Patient Education Patient Instructions Indication:Hypertension, benign Start:18-Mar-2013 Instruction Type:Provider Instructions for Treatment Patient Instructions Indication:Bite, insect Start:02-Jan-2013 Instruction Type:Provider Instructions for Treatment Patient Instructions Indication:WWV V73.21 Start:02-May-2012 Instruction Type:Provider Instructions for Treatment Name Dates Details How to access health informa tion online Indication:BMI 21.0-21.9, adult Start:05-Feb-2019 Instruction Type:Patient Education How to access health informa tion online - Detail Indication:BMI 21.0-21.9, adult Start:05-Feb-2019 Instruction Type:Patient Education Patient Instructions Indication:Hypercalcemia Start:05-Feb-2019 Instruction Type:Provider Instructions for Treatment How to access health informa tion online - Detail Indication:BMI 21.0-21.9, adult Start:19-Feb-2018 Instruction Type:Patient Education How to access health informa tion online Indication:BMI 21.0-21.9, adult Start:19-Feb-2018 Instruction Type:Patient Education Patient Instructions Indication:BMI 21.0-21.9, adult Start:19-Feb-2018 Instruction Type:Provider Instructions for Treatment How to access health informa tion online Indication:BMI 21.0-21.9, adult Start:28-Aug-2017 Instruction Type:Patient Education How to access health informa tion online - Detail Indication:BMI 21.0-21.9, adult Start:28-Aug-2017 Instruction Type:Patient Education Patient Instructions Indication:BMI 21.0-21.9, adult Start:28-Aug-2017 Instruction Type:Provider Instructions for Treatment Patient Instructions Indication:Abnormal hemoglobin Start:20-Feb-2017 Instruction Type:Provider Instructions for Treatment How to access health informa tion online Indication:Hypertension, benign Start:20-Feb-2017 Instruction Type:Patient Education How to access health informa tion online - Detail Indication:Hypertension, benign Start:20-Feb-2017 Instruction Type:Patient Education Patient Instructions Indication:Hypertension, benign Start:20-Feb-2017 Instruction Type:Provider Instructions for Treatment How to access health informa tion online Indication:Hypertension, benign Start:03-Oct-2016 Instruction Type:Patient Education How to access health informa tion online - Detail Indication:Hypertension, benign Start:03-Oct-2016 Instruction Type:Patient Education Patient Instructions Indication:Hypertension, benign Start:03-Oct-2016 Instruction Type:Provider Instructions for Treatment How to access health informa tion online Indication:Encounter for pre-employment examination Start:22-Apr-2015 Instruction Type:Patient Education How to access health informa tion online - Detail Indication:Encounter for pre-employment examination Start:22-Apr-2015 Instruction Type:Patient Education Patient Instructions Indication:Encounter for pre-employment examination Start:22-Apr-2015 Instruction Type:Provider Instructions for Treatment How to access health informa tion online - Detail Indication:Physical exam, routine Start:05-Mar-2014 Instruction Type:Patient Education Patient Instructions Indication:Hypertension, benign Start:18-Mar-2013 Instruction Type:Provider Instructions for Treatment Patient Instructions Indication:Bite, insect Start:02-Jan-2013 Instruction Type:Provider Instructions for Treatment Patient Instructions Indication:WWV V73.21 Start:02-May-2012 Instruction Type:Provider Instructions for Treatment Name Dates Details Patient Instructions Indication:Hypercholesteremia (Renamed from Hypercholesterolemia) Start:07-Nov-2019 Instruction Type:Provider Instructions for Treatment How to access health informa tion online Indication:BMI 21.0-21.9, adult Start:05-Feb-2019 Instruction Type:Patient Education How to access health informa tion online - Detail Indication:BMI 21.0-21.9, adult Start:05-Feb-2019 Instruction Type:Patient Education Patient Instructions Indication:Hypercalcemia Start:05-Feb-2019 Instruction Type:Provider Instructions for Treatment How to access health informa tion online - Detail Indication:BMI 21.0-21.9, adult Start:19-Feb-2018 Instruction Type:Patient Education How to access health informa tion online Indication:BMI 21.0-21.9, adult Start:19-Feb-2018 Instruction Type:Patient Education Patient Instructions Indication:BMI 21.0-21.9, adult Start:19-Feb-2018 Instruction Type:Provider Instructions for Treatment How to access health informa tion online Indication:BMI 21.0-21.9, adult Start:28-Aug-2017 Instruction Type:Patient Education How to access health informa tion online - Detail Indication:BMI 21.0-21.9, adult Start:28-Aug-2017 Instruction Type:Patient Education Patient Instructions Indication:BMI 21.0-21.9, adult Start:28-Aug-2017 Instruction Type:Provider Instructions for Treatment Patient Instructions Indication:Abnormal hemoglobin Start:20-Feb-2017 Instruction Type:Provider Instructions for Treatment How to access health informa tion online Indication:Hypertension, benign Start:20-Feb-2017 Instruction Type:Patient Education How to access health informa tion online - Detail Indication:Hypertension, benign Start:20-Feb-2017 Instruction Type:Patient Education Patient Instructions Indication:Hypertension, benign Start:20-Feb-2017 Instruction Type:Provider Instructions for Treatment How to access health informa tion online Indication:Hypertension, benign Start:03-Oct-2016 Instruction Type:Patient Education How to access health informa tion online - Detail Indication:Hypertension, benign Start:03-Oct-2016 Instruction Type:Patient Education Patient Instructions Indication:Hypertension, benign Start:03-Oct-2016 Instruction Type:Provider Instructions for Treatment How to access health informa tion online Indication:Encounter for pre-employment examination Start:22-Apr-2015 Instruction Type:Patient Education How to access health informa tion online - Detail Indication:Encounter for pre-employment examination Start:22-Apr-2015 Instruction Type:Patient Education Patient Instructions Indication:Encounter for pre-employment examination Start:22-Apr-2015 Instruction Type:Provider Instructions for Treatment How to access health informa tion online - Detail Indication:Physical exam, routine Start:05-Mar-2014 Instruction Type:Patient Education Patient Instructions Indication:Hypertension, benign Start:18-Mar-2013 Instruction Type:Provider Instructions for Treatment Patient Instructions Indication:Bite, insect Start:02-Jan-2013 Instruction Type:Provider Instructions for Treatment Patient Instructions Indication:WWV V73.21 Start:02-May-2012 Instruction Type:Provider Instructions for Treatment Name Dates Details Patient Instructions Indication:Hypercholesteremia (Renamed from Hypercholesterolemia) Start:07-Nov-2019 Instruction Type:Provider Instructions for Treatment How to access health informa tion online Indication:BMI 21.0-21.9, adult Start:05-Feb-2019 Instruction Type:Patient Education How to access health informa tion online - Detail Indication:BMI 21.0-21.9, adult Start:05-Feb-2019 Instruction Type:Patient Education Patient Instructions Indication:Hypercalcemia Start:05-Feb-2019 Instruction Type:Provider Instructions for Treatment How to access health informa tion online - Detail Indication:BMI 21.0-21.9, adult Start:19-Feb-2018 Instruction Type:Patient Education How to access health informa tion online Indication:BMI 21.0-21.9, adult Start:19-Feb-2018 Instruction Type:Patient Education Patient Instructions Indication:BMI 21.0-21.9, adult Start:19-Feb-2018 Instruction Type:Provider Instructions for Treatment How to access health informa tion online Indication:BMI 21.0-21.9, adult Start:28-Aug-2017 Instruction Type:Patient Education How to access health informa tion online - Detail Indication:BMI 21.0-21.9, adult Start:28-Aug-2017 Instruction Type:Patient Education Patient Instructions Indication:BMI 21.0-21.9, adult Start:28-Aug-2017 Instruction Type:Provider Instructions for Treatment Patient Instructions Indication:Abnormal hemoglobin Start:20-Feb-2017 Instruction Type:Provider Instructions for Treatment How to access health informa tion online Indication:Hypertension, benign Start:20-Feb-2017 Instruction Type:Patient Education How to access health informa tion online - Detail Indication:Hypertension, benign Start:20-Feb-2017 Instruction Type:Patient Education Patient Instructions Indication:Hypertension, benign Start:20-Feb-2017 Instruction Type:Provider Instructions for Treatment How to access health informa tion online Indication:Hypertension, benign Start:03-Oct-2016 Instruction Type:Patient Education How to access health informa tion online - Detail Indication:Hypertension, benign Start:03-Oct-2016 Instruction Type:Patient Education Patient Instructions Indication:Hypertension, benign Start:03-Oct-2016 Instruction Type:Provider Instructions for Treatment How to access health informa tion online Indication:Encounter for pre-employment examination Start:22-Apr-2015 Instruction Type:Patient Education How to access health informa tion online - Detail Indication:Encounter for pre-employment examination Start:22-Apr-2015 Instruction Type:Patient Education Patient Instructions Indication:Encounter for pre-employment examination Start:22-Apr-2015 Instruction Type:Provider Instructions for Treatment How to access health informa tion online - Detail Indication:Physical exam, routine Start:05-Mar-2014 Instruction Type:Patient Education Patient Instructions Indication:Hypertension, benign Start:18-Mar-2013 Instruction Type:Provider Instructions for Treatment Patient Instructions Indication:Bite, insect Start:02-Jan-2013 Instruction Type:Provider Instructions for Treatment Patient Instructions Indication:WWV V73.21 Start:02-May-2012 Instruction Type:Provider Instructions for Treatment Summary Purpose Advance Directives Name Dates Details Immunization Registry [place] - Effective on 11/10/2019. Expiration date unspecified Effective:10-Nov-2019 Name Dates Details Immunization [facility] [place] - Effective on 11/10/2019. Expiration date unspecified Effective:10-Nov-2019 Name Dates Details Immunization [facility] [place] - Effective on 11/10/2019. Expiration date unspecified Effective:10-Nov-2019 Name Dates Details Immunization [facility] [place] - Effective on 11/10/2019. Expiration date unspecified Effective:10-Nov-2019 Name Dates Details Immunization [facility] [place] - Effective on 11/10/2019. Expiration date unspecified Effective:10-Nov-2019 Name Dates Details Immunization [facility] [place] - Effective on 11/10/2019. Expiration date unspecified Effective:10-Nov-2019 Name Dates Details Immunization [facility] [place] - Effective on 11/10/2019. Expiration date unspecified Effective:10-Nov-2019 Name Dates Details Immunization [facility] [place] - Effective on 11/10/2019. Expiration date unspecified Effective:10-Nov-2019 Name Dates Details Immunization [facility] [place] - Effective on 11/10/2019. Expiration date unspecified Effective:10-Nov-2019 Name Dates Details Immunization [facility] [place] - Effective on 11/10/2019. Expiration date unspecified Effective:10-Nov-2019 Name Dates Details Immunization [facility] [place] - Effective on 11/10/2019. Expiration date unspecified Effective:10-Nov-2019 Name Dates Details Immunization [facility] [place] - Effective on 11/10/2019. Expiration date unspecified Effective:10-Nov-2019 Name Dates Details Immunization [facility] [place] - Effective on 11/10/2019. Expiration date unspecified Effective:10-Nov-2019 Name Dates Details Immunization [facility] [place] - Effective on 11/10/2019. Expiration date unspecified Effective:10-Nov-2019 Name Dates Details Immunization [facility] [place] - Effective on 11/10/2019. Expiration date unspecified Effective:10-Nov-2019 Name Dates Details Immunization [facility] [place] - Effective on 11/10/2019. Expiration date unspecified Effective:10-Nov-2019 Name Dates Details Immunization [facility] [place] - Effective on 11/10/2019. Expiration date unspecified Effective:10-Nov-2019 Name Dates Details Immunization [facility] [place] - Effective on 11/10/2019. Expiration date unspecified Effective:10-Nov-2019 Name Dates Details Immunization [facility] [place] - Effective on 11/10/2019. Expiration date unspecified Effective:10-Nov-2019 Name Dates Details Immunization [facility] [place] - Effective on 11/10/2019. Expiration date unspecified Effective:10-Nov-2019 Additional Source Comments INFORMATION SOURCE (unrecogn ized section and content) DATE CREATED AUTHOR AUTHOR'S ORGANIZ ATION 11/08/2020 [facility] DATE CREATED AUTHOR AUTHOR'S ORGANIZ ATION 08/24/2022 [facility] FOR RECORDS PERTAINING TO PATIENTS WHO ARE OR HAVE BEEN ENROLLED IN A CHEMICAL DEPENDENCY/SUBSTANCEABUSE PROGRAM, SOME INFORMATION MAY BE OMITTED. This clinical summary was aggregated from multiple sources. Caution should be exercised in using it in the provision of clinical care. This summary normalizes information from multiple sources, and as a consequence, information in this document may materially change the coding, format and clinical context of patient data. In addition, data may be omitted in some cases. CLINICAL DECISIONS SHOULD BE BASED ON THE PRIMARY CLINICAL RECORDS. [facility] [employer] provides no warranty or guarantee of the accuracy or completeness of information in this document.
[2023-09-27 08:40] LABS: Absolute Lymphocyte Count 2.13 X10^3/uL (0.83-4.51); Absolute Neutrophil Count 1.9 X10^3/uL (2.0-7.7); Basophil# 0.03 X10^3/uL; Basophil% 0.7 % (0-1); Eosinophil# 0.23 X10^3/uL; Hematocrit 36.6 % (37-47); Hemoglobin 12.3 g/dL (12.0-15.0); Lymphocyte # 2.13 X10^3/ul (0.83-4.51); Lymphocyte % 46.2 % (19-41); Mean Corp Hgb Conc 33.6 g/dL (32-36); Mean Corpuscular Volume 95.3 fL (81-99); Mean Platelet Vol. 10.8 fl (6.2-12.0); Monocyte# 0.28 X10^3/uL; Monocyte% 6.1 % (0-10); NRBC Flagged by Analyzer 0 % (0-5); Neutrophil # 1.93 X10^3/uL (2.7-7.7); Neutrophil % 41.8 % (47-70); Platelet Count 190 K/mm3 (150-450); RBC Distribution Width CV 11.5 % (11.6-14.6); RBC Distribution Width SD 40.1 fl (35.1-43.9); Red Blood Count 3.84 M/mm3 (4.2-5.4); White Blood Count 4.6 K/mm3 (4.4-11.0)
[2023-09-27 08:43] LABS: Color, Urine Yellow (Yellow); Glucose, Dipstick Normal (Normal); Ketone-Dipstick Negative (Negative); Leukocyte Esterase-Dipstick 100 /ul (Negative); Nitrite-Dipstick Negative (Negative); Occult Blood-Urine Negative /ul (Negative); Protein-Dipstick Negative (Negative); Urine Bilirubin Dipstick Negative (Negative); Urine Clarity Clear (Clear); Urine Urobilinogen Normal (Normal)
[2023-09-27 09:15] LABS: ALB/GLOB Ratio 1.1 RATIO (0.9-2.4); AST(SGOT) 20 U/L (15-37); Alanine Aminotransfer ALT/SGPT 17 U/L (13-56); Albumin, Serum 3.7 g/dL (3.2-5.0); Alkaline Phosphatase 50 U/L (45-117); Anion Gap 4 (5-15); BUN 10 mg/dL (7-18); BUN/Creat Ratio 14.8 RATIO (10-20); Calcium,Total 9.5 mg/dL (8.5-10.1); Chloride 103 mmol/L (98-107); Cholesterol 230 mg/dL (200); Creatinine, Serum 0.68 mg/dL (0.55-1.02); EST Glomerular Filtration Rate 94 mL/min (>60); Est Glom Filt Rate - Afr Amer 113 mL/min (>60); Free T3 2.7 pg/mL (2.18-3.98); Globulin 3.3 g/dL (2.2-4.2); Glucose 99 mg/dL (74-106); High Density Lipoprotein 97 mg/dL; Potassium 3.7 mmol/L (3.5-5.1); Sodium Level 135 mmol/L (136-145); T4 Free Direct 0.77 ng/dL (0.76-1.46); Thyroid Stim Hormone (TSH) 2.31 uIU/mL (0.358-3.74); Triglycerides 56 mg/dL; Very Low Density Lipoprotein 11 mg/dL (5-40)
[2023-09-27 10:27] LABS: Microalbumin,Random Urine 9.4 mg/L (NO RANGE EST.); Microalbumin:Creatinine Ratio 18.2 mg/g CRE (<30 mg/g CRE)
== END | disposition home or self-care (01) ==
LOC: LAB 07:34
PROVIDERS: PCP Nurse Practitioner Family; Referring Provider Nurse Practitioner Family; Visit Provider Nurse Practitioner Family
DX: E55.9 Vitamin D deficiency, unspecified (principal); E78.00 Pure hypercholesterolemia, unspecified; E03.9 Hypothyroidism, unspecified; I10 Essential (primary) hypertension
CPT/HCPCS: 36415; 80053; 80061; 81002; 82043; 82306; 82330; 82570; 84439; 84443; 84481; 85025

== ENCOUNTER → 2024-03-13 | Outpatient (CLI) | payer BC, SELFPAY ==
[2024-03-13 09:08] LABS: Absolute Lymphocyte Count 2.18 X10^3/uL (0.83-4.51); Absolute Neutrophil Count 1.9 X10^3/uL (2.0-7.7); Basophil# 0.03 X10^3/uL; Basophil% 0.6 % (0-1); Eosinophil# 0.18 X10^3/uL; Eosinophils% 3.8 % (0-5); Hematocrit 35.7 % (37-47); Hemoglobin 11.9 g/dL (12.0-15.0); Lymphocyte # 2.18 X10^3/ul (0.83-4.51); Mean Corp Hgb Conc 33.3 g/dL (32-36); Mean Corpuscular Hgb 31.1 pg (27.0-32.0); Mean Corpuscular Volume 93.2 fL (81-99); Mean Platelet Vol. 10.9 fl (6.2-12.0); Monocyte# 0.44 X10^3/uL; Monocyte% 9.3 % (0-10); NRBC Flagged by Analyzer 0 % (0-5); Neutrophil % 40.1 % (47-70); Platelet Count 185 K/mm3 (150-450); RBC Distribution Width CV 11.7 % (11.6-14.6); RBC Distribution Width SD 39.6 fl (35.1-43.9); Red Blood Count 3.83 M/mm3 (4.2-5.4); White Blood Count 4.7 K/mm3 (4.4-11.0)
[2024-03-13 09:53] LABS: ALB/GLOB Ratio 1.1 RATIO (0.9-2.4); AST(SGOT) 19 U/L (15-37); Alanine Aminotransfer ALT/SGPT 21 U/L (13-56); Albumin, Serum 3.6 g/dL (3.2-5.0); Alkaline Phosphatase 58 U/L (45-117); Anion Gap 4 (5-15); BUN 10 mg/dL (7-18); BUN/Creat Ratio 14.4 RATIO (10-20); Calcium,Total 9.2 mg/dL (8.5-10.1); Chloride 102 mmol/L (98-107); Cholesterol 196 mg/dL (200); Creatinine, Serum 0.69 mg/dL (0.55-1.02); EST Glomerular Filtration Rate 91 mL/min (>60); Est Glom Filt Rate - Afr Amer 109 mL/min (>60); Globulin 3.4 g/dL (2.2-4.2); Glucose 102 mg/dL (74-106); High Density Lipoprotein 103 mg/dL; Potassium 3.9 mmol/L (3.5-5.1); Sodium Level 133 mmol/L (136-145); Thyroid Stim Hormone (TSH) 2.27 uIU/mL (0.358-3.74); Triglycerides 44 mg/dL; Very Low Density Lipoprotein 9 mg/dL (5-40)
== END | disposition home or self-care (01) ==
PROVIDERS: PCP Nurse Practitioner Family; Referring Provider Nurse Practitioner Family; Visit Provider Nurse Practitioner Family
DX: R79.89 Other specified abnormal findings of blood chemistry (principal); E78.00 Pure hypercholesterolemia, unspecified; E03.9 Hypothyroidism, unspecified; I10 Essential (primary) hypertension
CPT/HCPCS: 36415; 80053; 80061; 84443; 85025

== ENCOUNTER → 2024-09-19 | Outpatient (CLI) | payer BC, SELFPAY ==
[2024-09-19 08:58] LABS: Absolute Lymphocyte Count 1.96 X10^3/uL (0.83-4.51); Basophil# 0.03 X10^3/uL; Basophil% 0.6 % (0-1); Eosinophil# 0.19 X10^3/uL; Eosinophils% 4.1 % (0-5); Hematocrit 36.2 % (37-47); Hemoglobin 12.1 g/dL (12.0-15.0); Lymphocyte # 1.96 X10^3/ul (0.83-4.51); Lymphocyte % 42.2 % (19-41); Mean Corp Hgb Conc 33.4 g/dL (32-36); Mean Corpuscular Hgb 31.6 pg (27.0-32.0); Mean Corpuscular Volume 94.5 fL (81-99); Monocyte# 0.42 X10^3/uL; NRBC Flagged by Analyzer 0 % (0-5); Neutrophil # 2.04 X10^3/uL (2.7-7.7); Neutrophil % 43.9 % (47-70); Platelet Count 188 K/mm3 (150-450); RBC Distribution Width CV 11.5 % (11.6-14.6); RBC Distribution Width SD 39.3 fl (35.1-43.9); Red Blood Count 3.83 M/mm3 (4.2-5.4); White Blood Count 4.7 K/mm3 (4.4-11.0)
[2024-09-19 09:36] LABS: Vitamin B12 901 pg/mL (211-911); Vitamin D,25 Hydroxy 52.8 ng/mL
[2024-09-19 10:17] LABS: Microalbumin,Random Urine 12.9 mg/L (NO RANGE EST.); Microalbumin:Creatinine Ratio 23.6 mg/g CRE (<30 mg/g CRE)
[2024-09-19 10:20] LABS: ALB/GLOB Ratio 1.1 RATIO (0.9-2.4); AST(SGOT) 18 U/L (15-37); Alanine Aminotransfer ALT/SGPT 20 U/L (13-56); Albumin, Serum 3.7 g/dL (3.2-5.0); Alkaline Phosphatase 50 U/L (45-117); Anion Gap 7 (5-15); BUN 10 mg/dL (7-18); BUN/Creat Ratio 16.7 RATIO (10-20); Calcium,Total 9.4 mg/dL (8.5-10.1); Chloride 101 mmol/L (98-107); Cholesterol 251 mg/dL (200); EST Glomerular Filtration Rate 107 mL/min (>60); Est Glom Filt Rate - Afr Amer 129 mL/min (>60); Globulin 3.4 g/dL (2.2-4.2); Glucose 99 mg/dL (74-106); High Density Lipoprotein 89 mg/dL; Potassium 4.1 mmol/L (3.5-5.1); Protein, Total 7.1 g/dL (6.4-8.2); Sodium Level 134 mmol/L (136-145); Triglycerides 74 mg/dL; Very Low Density Lipoprotein 15 mg/dL (5-40)
== END | disposition home or self-care (01) ==
LOC: LAB 07:57
PROVIDERS: PCP Nurse Practitioner Family; Referring Provider Nurse Practitioner Family; Visit Provider Nurse Practitioner Family
DX: E87.1 Hypo-osmolality and hyponatremia (principal); D64.9 Anemia, unspecified; E78.00 Pure hypercholesterolemia, unspecified; R80.9 Proteinuria, unspecified; E55.9 Vitamin D deficiency, unspecified
CPT/HCPCS: 80053; 80061; 82043; 82306; 82570; 82607; 82746; 85025

== ENCOUNTER → 2025-04-30 | Outpatient (CLI) | payer MEDICARE, OTHER, SELFPAY ==
[2025-04-30 08:57] LABS: Hematocrit 37.3 % (37-47); Hemoglobin 12.7 g/dL (12.0-15.0); Immature Granulocytes Count 0.010 X10^3/uL (0.0-0.0); Mean Corp Hgb Conc 34.0 g/dL (32-36); Mean Corpuscular Volume 94.0 fL (81-99); Mean Platelet Vol. 11.1 fl (6.2-12.0); NRBC Flagged by Analyzer 0 % (0-5); Platelet Count 187 K/mm3 (150-450); RBC Distribution Width CV 11.7 % (11.6-14.6); RBC Distribution Width SD 40.2 fl (35.1-43.9); Red Blood Count 3.97 M/mm3 (4.2-5.4); White Blood Count 4.7 K/mm3 (4.4-11.0)
[2025-04-30 09:42] LABS: AST(SGOT) 21 U/L (<=31); Alanine Aminotransfer ALT/SGPT 14 U/L (<=34); Albumin, Serum 4.5 g/dL (3.4-4.8); Alkaline Phosphatase 51 U/L (35-104); Anion Gap 11 (5-15); BUN 10 mg/dL (4-19); BUN/Creat Ratio 13.0 RATIO (10-20); Calcium,Total 10.1 mg/dL (7.6-11.0); Carbon Dioxide 24.2 mmol/L (21.0-32.0); Chloride 101 mmol/L (98-108); Cholesterol 229 mg/dL (<=200); Ferritin 337 ng/mL (22-378); Globulin 2.6 g/dL (2.2-4.2); Glucose 96 mg/dL (70-99); Low Density Lipoprotein Calc. 121 mg/dL; Potassium 4.8 mmol/L (3.3-5.1); Triglycerides 53 mg/dL; Very Low Density Lipoprotein 11 mg/dL (5-40); cholesterol:hdl ratio screen 2.34
[2025-04-30 10:07] LABS: Iron 133 ug/dL (50-170); Iron Binding Capacity,Total 328 ug/dL (250-450); Iron Binding Capacity,Unsat 195 ug/dL (228-428)
== END | disposition home or self-care (01) ==
PROVIDERS: PCP Nurse Practitioner Family; Visit Provider Nurse Practitioner Family
DX: I10 Essential (primary) hypertension (principal); D64.9 Anemia, unspecified
CPT/HCPCS: 36415; 80053; 80061; 82728; 83540; 83550; 85025